=== PATIENT | female | born 1995 | race Caucasian/White ===

== ENCOUNTER 2018-11-13 12:37 | Emergency (ER) | payer MEDICAID, OTHER ==
[~2018-11-13] VITALS: Ht 162.6 cm; Wt 70.3 kg
[2018-11-13] MEDS ORDERED: NS IV 1000 ML 1,000 ML ONE (13:04)
[2018-11-13] MEDS ORDERED: LACTATED RINGERS 1,000 ML IV ONE (13:05)
--- NOTE | 2018-11-13 13:13 | ED GI ---
General Chief Complaint: Abdominal/GI Problems Stated Complaint: VOMITING; DIARRHEA Source of Information: Patient Exam Limitations: No Limitations History of Present Illness Date Seen by Provider: Nov 13, 2018 Time Seen by Provider: 12:56 Initial Comments The patient presents to ER by private conveyance with chief complaint of 2 days nausea vomiting diarrhea and now this morning of fever Tmax of 102. She has not taken any Tylenol today with her fever was resolving before she came in. She feels dry and dehydrated. She is 20 weeks and 4 days with a expected due date March 29, 2019. She is followed by Dr. Palacios. She has no significant medical problems only takes vitamins and denies smoking drinking or drugs. She denies burning dysuria. She has a sore throat and nasal congestion and a dry nonproductive cough. 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 She denies any history of abdominal surgeries, IBS or IBD. G1 Allergies and Home Medications Allergies Coded Allergies: No Known Drug Allergies (Unverified , 11/13/18) Patient Home Medication List Home Medication List Reviewed: Yes Review of Systems Review of Systems Constitutional: chills; No dizziness; fever, malaise; No weakness EENTM: No Blurred Vision, No Double Vision Respiratory: Cough; Denies Shortness of Air Cardiovascular: Denies Chest Pain, Denies Edema Gastrointestinal: Denies Abdomen Distended, Denies Abdominal Pain, Denies Blood Streaked Stools, Denies Constipated; Diarrhea, Nausea, Poor Fluid Intake, Vomiting Genitourinary: Denies Burning, Denies Discharge Musculoskeletal: No back pain, No joint pain Past Jzyreho-Kamavj-Qvudkl Hx Patient Social History Alcohol Use: Denies Use Recreational Drug Use: No Smoking Status: Never a Smoker Recent Foreign Travel: No Physical Exam Vital Signs Vital Signs - First Documented 11/13/18 13:17 Temp 98.8 Pulse 102 Resp 16 B/P (MAP) 110/87 (95) Pulse Ox 100 O2 Delivery Room Air Capillary Refill : Height/Weight/BMI Height: '" Weight: lbs. oz. kg; BMI Method: General Appearance: WD/WN, no apparent distress HEENT: PERRL/EOMI; No pharynx normal (oropharynx is dry) Neck: full range of motion, normal inspection Respiratory: lungs clear, normal breath sounds, no respiratory distress, no accessory muscle use Cardiovascular: normal peripheral pulses, regular rate, rhythm, no edema, no murmur Peripheral Pulses: 2+ Dorsalis Pedis (R), 2+ Left Dors-Pedis (L) Gastrointestinal: normal bowel sounds, non tender, soft, other (gravid) Extremities: normal range of motion, non-tender, normal inspection, normal capillary refill Neurologic/Psychiatric: alert, normal mood/affect, oriented x 3 Skin: normal color, warm/dry Progress/Results/Core Measures Results/Orders Lab Results Laboratory Tests Test 11/13/18 13:10 11/13/18 13:35 11/13/18 13:40 Range/Units White Blood Count 15.6 H 4.3-11.0 10^3/uL Red Blood Count 3.85 L 4.35-5.85 10^6/uL Hemoglobin 12.2 11.5-16.0 G/DL Hematocrit 36 35-52 % Mean Corpuscular Volume 94 80-99 FL Mean Corpuscular Hemoglobin 32 25-34 PG Mean Corpuscular Hemoglobin Concent 34 32-36 G/DL Red Cell Distribution Width 13.6 10.0-14.5 % Platelet Count 233 130-400 10^3/uL Mean Platelet Volume 9.7 7.4-10.4 FL Neutrophils (%) (Auto) 88 H 42-75 % Lymphocytes (%) (Auto) 6 L 12-44 % Monocytes (%) (Auto) 6 0-12 % Eosinophils (%) (Auto) 0 0-10 % Basophils (%) (Auto) 0 0-10 % Neutrophils # (Auto) 13.6 H 1.8-7.8 X 10^3 Lymphocytes # (Auto) 1.0 1.0-4.0 X 10^3 Monocytes # (Auto) 0.9 0.0-1.0 X 10^3 Eosinophils # (Auto) 0.0 0.0-0.3 10^3/uL Basophils # (Auto) 0.0 0.0-0.1 10^3/uL Neutrophils % (Manual) 87 % Lymphocytes % (Manual) 8 % Monocytes % (Manual) 2 % Eosinophils % (Manual) 0 % Basophils % (Manual) 0 % Band Neutrophils 3 % Blood Morphology Comment NORMAL Sodium Level 135 135-145 MMOL/L Potassium Level 3.6 3.6-5.0 MMOL/L Chloride Level 100 98-107 MMOL/L Carbon Dioxide Level 21 21-32 MMOL/L Anion Gap 14 5-14 MMOL/L Blood Urea Nitrogen 6 L 7-18 MG/DL Creatinine 0.50 L 0.60-1.30 MG/DL Estimat Glomerular Filtration Rate > 60 BUN/Creatinine Ratio 12 Glucose Level 81 70-105 MG/DL Calcium Level 8.8 8.5-10.1 MG/DL Corrected Calcium 9.1 8.5-10.1 MG/DL Total Bilirubin 0.9 0.1-1.0 MG/DL Aspartate Amino Transf (AST/SGOT) 23 5-34 U/L Alanine Aminotransferase (ALT/SGPT) 20 0-55 U/L Alkaline Phosphatase 70 40-136 U/L Total Protein 6.5 6.4-8.2 GM/DL Albumin 3.6 3.2-4.5 GM/DL Monoscreen NEGATIVE NEGATIVE Group A Streptococcus Screen NEGATIVE NEGATIVE Urine Color YELLOW Urine Clarity CLEAR Urine pH 7.0 5-9 Urine Specific [place] 1.015 L 1.016-1.022 Urine Protein NEGATIVE NEGATIVE Urine Glucose (UA) NEGATIVE NEGATIVE Urine Ketones 1+ H NEGATIVE Urine Nitrite NEGATIVE NEGATIVE Urine Bilirubin NEGATIVE NEGATIVE Urine Urobilinogen 0.2 NORMAL MG/DL Urine Leukocyte Esterase NEGATIVE NEGATIVE Urine RBC (Auto) NEGATIVE NEGATIVE Urine RBC NONE /HPF Urine WBC NONE /HPF Urine Squamous Epithelial Cells 10-25 H /HPF Urine Crystals NONE /LPF Urine Bacteria NONE /HPF Urine Casts NONE /LPF Urine Mucus NEGATIVE /LPF Urine Culture Indicated NO Micro Results Microbiology 11/13/18 Influenza Types A,B Antigen (ELENO) - Final, Complete My Orders Orders - BAO ADAMS Cbc With Automated Diff (11/13/18 13:05) Comprehensive Metabolic Panel (11/13/18 13:05) Urinalysis (11/13/18 13:05) Influenza A And B Antigens (11/13/18 13:05) Ns Iv 1000 Ml (Sodium Chloride 0.9%) (11/13/18 13:04) Rapid Strep A Screen (11/13/18 13:05) Monotest (11/13/18 13:05) Saline Lock/Iv-Start (11/13/18 13:05) Lactated Ringers (Lr 1000 Ml Iv Solution (11/13/18 13:05) Acetaminophen Tablet (Tylenol Tablet) (11/13/18 13:15) Ondansetron Injection (Zofran Injectio (11/13/18 13:30) Ondansetron Injection (Zofran Injectio (11/13/18 13:23) Manual Differential (11/13/18 13:10) Medications Given in ED Current Medications Medications Dose Ordered Sig/Peri Route Start Time Stop Time Status Last Admin Dose Admin Acetaminophen 1,000 mg ONCE ONCE PO 11/13/18 13:15 11/13/18 13:16 DC 11/13/18 13:46 1,000 MG Lactated Ringer's 1,000 ml @ 0 mls/hr Q0M ONCE IV 11/13/18 13:05 11/13/18 13:08 DC 11/13/18 13:46 1,000 MLS/HR Ondansetron HCl 4 mg ONCE ONCE IVP 11/13/18 13:30 11/13/18 13:31 DC 11/13/18 13:46 4 MG Vital Signs/I&O 11/13/18 13:17 Temp 98.8 Pulse 102 Resp 16 B/P (MAP) 110/87 (95) Pulse Ox 100 O2 Delivery Room Air Progress Progress Note : Time: 13:13 Progress Note Plan to give her a liter of balance solution and check some basic labs looking for mono, strep, influenza as well as anemia, elevated white count. We'll also since she is 20 weeks' just check liver enzymes and electrolytes. She would like some Tylenol for her mild frontal headache. She is declining anything for nausea right now. heart tones 144 Departure Impression Primary Impression: Gastroenteritis and colitis, viral Additional Impressions: Viral upper respiratory tract infection with cough Qualified Codes: Z3A.20 - 20 weeks gestation of Disposition: 01 HOME, SELF-CARE Condition: Improved Departure-Patient Inst. Decision time for Depature: 15:08 Referrals: CURRY PALACIOS MD (PCP/Family) Primary Care Physician Patient Instructions: Viral Gastroenteritis, Adult (DC) Add. Discharge Instructions: Make sure you're drinking plenty of fluids especially sports drinks such as propel, Gatorade, Powerade etc. If you're having diarrhea then you should stick to a liquid diet or a high starch low spicy greasy diet such as a BRAT diet: Bananas, rice, applesauce and toast. If you're having nausea you may take one tablet of Zofran every 6 hours as necessary. If your diarrhea persists for more than 2 days or if you're unable to keep up with your fluid intake then you may take one tablet of Imodium every 4 hours as needed to stop watery stools. Follow-up with primary care as necessary. All discharge instructions reviewed with patient and/or family. Voiced understanding. Scripts Ondansetron (Ondansetron Odt) 4 Mg Tab.rapdis 4 MG PO Q6H PRN for NAUSEA/VOMITING, #8 TAB 0 Refills Prov: BAO ADAMS 11/13/18 Work/School Note: Work Release Form Date Seen in the Emergency Department: Nov 13, 2018 Return to Work: Nov 14, 2018 Restrictions: No Restrictions BAO ADAMS Nov 13, 2018 13:12
[2018-11-13] MEDS ORDERED: ACETAMINOPHEN 500 MG TAB (TYLENOL) PO ONE (13:15)
[2018-11-13] MEDS ORDERED: ONDANSETRON 4 MG/2 ML (SDV) Z0FRAN ONE (13:23)
[2018-11-13 13:27] LABS: HEMATOCRIT 36 % (35-52); HEMOGLOBIN 12.2 G/DL (11.5-16.0); MEAN CORPUSCULAR HEMOGLOBIN 32 PG (25-34); WHITE BLOOD COUNT 15.6 10^3/uL (4.3-11.0)
[2018-11-13 13:28] LABS: BASOPHILS % (AUTO) 0 % (0-10); EOSINOPHILS % (AUTO) 0 % (0-10); LYMPHOCYTES % (AUTO) 6 % (12-44); MEAN CORPUSCULAR HGB CONC 34 G/DL (32-36); MEAN CORPUSCULAR VOLUME 94 FL (80-99); MEAN PLATELET VOLUME 9.7 FL (7.4-10.4); MONOCYTES # (AUTO) 0.9 X 10^3 (0.0-1.0); MONOCYTES % (AUTO) 6 % (0-12); NEUTROPHILS # (AUTO) 13.6 X 10^3 (1.8-7.8); NEUTROPHILS % (AUTO) 88 % (42-75); PLATELET COUNT 233 10^3/uL (130-400); RED CELL DISTRIBUTION WIDTH 13.6 % (10.0-14.5)
[2018-11-13] MEDS ORDERED: ONDANSETRON 4 MG/2 ML (SDV) Z0FRAN IVP ONE (13:30)
[2018-11-13 13:44] LABS: ALANINE AMINOTRANSFERASE 20 U/L (0-55); ALBUMIN 3.6 GM/DL (3.2-4.5); ALKALINE PHOSPHATASE 70 U/L (40-136); BILIRUBIN,TOTAL 0.9 MG/DL (0.1-1.0); BUN/CREATININE RATIO 12; CALCIUM 8.8 MG/DL (8.5-10.1); CARBON DIOXIDE 21 MMOL/L (21-32); CHLORIDE 100 MMOL/L (98-107); GFR ESTIMATED > 60; GLUCOSE 81 MG/DL (70-105); POTASSIUM 3.6 MMOL/L (3.6-5.0); SODIUM 135 MMOL/L (135-145); TOTAL PROTEIN 6.5 GM/DL (6.4-8.2)
[2018-11-13 13:51] LABS: BAND NEUTROPHILS 3 %; BASOPHILS % (MANUAL) 0 %; EOSINOPHILS % (MANUAL) 0 %; LYMPHOCYTES % (MANUAL) 8 %; MONOCYTES % (MANUAL) 2 %; NEUTROPHILS % (MANUAL) 87 %; RBC MORPH NORMAL
[2018-11-13 14:16] LABS: CLARITY,URINE CLEAR; COLOR,URINE YELLOW; PROTEIN,URINE NEGATIVE (NEGATIVE)
[2018-11-13 14:17] LABS: BILIRUBIN,URINE NEGATIVE (NEGATIVE); GLUCOSE, URINE (UA) NEGATIVE (NEGATIVE); KETONES,URINE 1+ (NEGATIVE); LEUKOCYTE ESTERASE ,URINE NEGATIVE (NEGATIVE); NITRITE,URINE NEGATIVE (NEGATIVE); UROBILINOGEN,URINE 0.2 MG/DL (NORMAL)
[2018-11-13] MEDS ORDERED: ONDA4TAB11 PO (15:14)
[2018-11-13 15:18] VITALS: BP 125/62
== END 2018-11-13 15:18 | disposition home or self-care (01) ==
LOC: ER FS 12:40
DX: O99.612 Diseases of the digestive system complicating pregnancy, second trimester (principal); A08.4 Viral intestinal infection, unspecified; O99.512 Diseases of the respiratory system complicating pregnancy, second trimester; J06.9 Acute upper respiratory infection, unspecified; Z3A.20 20 weeks gestation of pregnancy
CPT/HCPCS: 36415; 80053; 81000; 85007; 85027; 86308; 87430; 87804; 96361; 96374

== ENCOUNTER 2018-12-18 13:13 | Outpatient (CLI) | payer MEDICAID ==
[~2018-12-18] VITALS: Ht 162.6 cm; Wt 71.7 kg
--- NOTE | 2018-12-18 13:10 | NUR ---
NIRAV CHAPPELL presented to unit via AMBULATORY from HOME, accompanied by S/O with c/o LOWER LEFT SIDE ABD PAIN. NIRAV CHAPPELL weighed, gowned, voided, and to bed. EFHM and TOCO applied, VS taken. NIRAV CHAPPELL oriented to bed controls, call light, TV, heat, and A/C controls.
[~2018-12-18 13:13] MED LIST: ONDA4TAB11 PO
[2018-12-18 13:17] VITALS: BP 149/74
[2018-12-18 13:28] VITALS: BP 131/61
[2018-12-18 13:38] VITALS: BP 131/61
[2018-12-18 13:52] VITALS: BP 131/63
[2018-12-18] MEDS ORDERED: PREN1TAB79 PO (13:55)
--- NOTE | 2018-12-18 14:00 | NUR ---
PT FINALLY ABLE TO VOID.
[2018-12-18 14:16] LABS: BILIRUBIN,URINE NEGATIVE (NEGATIVE); CLARITY,URINE SLIGHTLY CLOUDY; COLOR,URINE YELLOW; GLUCOSE, URINE (UA) NEGATIVE (NEGATIVE); KETONES,URINE 1+ (NEGATIVE); LEUKOCYTE ESTERASE ,URINE NEGATIVE (NEGATIVE); NITRITE,URINE NEGATIVE (NEGATIVE); PH,URINE 7 (5-9); PROTEIN,URINE NEGATIVE (NEGATIVE); UROBILINOGEN,URINE NORMAL (NORMAL)
[2018-12-18 14:54] LABS: BACTERIA,URINE NEGATIVE /HPF; SQUAMOUS EPITHELIAL CELL,UR 0-2 /HPF
[2018-12-18 14:55] LABS: AMORPHOUS SEDIMENT,UR MOD AMOR PHOSPHATE /LPF
--- NOTE | 2018-12-18 15:00 | NUR ---
DR. BOWMAN NOTIFIED OF PT'S ARRIVAL, COMPLAINT, NO CTXS, URINE RESULTS. ORDERS RECEIVED.
[2018-12-18] MEDS ORDERED: LACTATED RINGERS 1,000 ML IV SCH (15:15)
--- NOTE | 2018-12-18 15:55 | NUR ---
NO DIARRHEA OR EMESIS SINCE ARRIVAL. PT HAS SLEPT OFF AND ON. AWAKENED FOR INSTRUCTIONS. STATES FEELING BETTER.
--- NOTE | 2018-12-18 16:00 | NUR ---
DISCHARGE INSTRUCTIONS REVIEWED WITH COPY TO PT. STATES UNDERSTANDING OF ALL INSTRUCTIONS AND NEED TO F/U SCHEDULED AND NEEDED.
[2018-12-18 16:10] VITALS: BP 131/63
--- NOTE | 2018-12-18 16:10 | NUR ---
DISMISSED AMB FROM [facility] IN STABLE CONDITION ACC BY NoelOSacha
--- NOTE | 2018-12-19 16:48 | Physician Query-Final Dx ---
DENNIS HERCULES 12/19/18 1648: Clinic Account Progress/Dx Physician Query: Please give diagnosis Date of Service Dec 18, 2018 at 13:13 CURRY PALACIOS MD 12/26/18 1506: Clinic Account Progress/Dx DIAGNOSIS: Diagnosis LLQ pain; round ligament pain. DENNIS HERCULES Dec 19, 2018 16:48 CURRY PALACIOS MD December 26, 2018 15:06
== END 2018-12-18 16:10 | disposition home or self-care (01) ==
LOC: LDRP 13:13 → WSo 13:13
PROVIDERS: ATTEND Family Medicine
DX: O99.89 Other specified diseases and conditions complicating pregnancy, childbirth and the puerperium (principal); R10.31 Right lower quadrant pain
CPT/HCPCS: 81000; 96360; 99213

== ENCOUNTER 2019-01-31 22:05 | Emergency (ER) | payer MEDICAID ==
[~2019-01-31] VITALS: Ht 162.6 cm; Wt 74.8 kg
[~2019-01-31 22:05] MED LIST changes: +PREN1TAB79 PO
--- OUTSIDE RECORDS SUMMARY | 2019-01-31 22:11 | XMS REPORT | Continuity of Care Document ---
Author Organization Unknown Address Unknown Allergies Active Description Code Type Severity Reaction Onset Reported/Identified Relationship to Patient Clinical Status Yes No Known Drug Allergies [id number] Drug Allergy Unknown N/A 11/13/2018 Medications There is no data. Problems Date Dx Coded Attending Type Code Diagnosis Diagnosed By 11/13/2018 BAO ADAMS MD Ot A08.4 VIRAL INTESTINAL INFECTION, UNSPECIFIED 11/13/2018 BAO ADAMS MD Ot J06.9 ACUTE UPPER RESPIRATORY INFECTION, UNSPE 11/13/2018 BAO ADAMS MD Ot O21.9 VOMITING OF , UNSPECIFIED 11/13/2018 BAO ADAMS MD Ot O99.512 DISEASES OF THE RESP SYS COMP , 11/13/2018 BAO ADAMS MD Ot O99.612 DISEASES OF THE DGSTV SYS COMP 11/13/2018 BAO ADAMS MD Ot Z3A.20 20 WEEKS GESTATION OF 11/16/2018 BAO ADAMS MD Ot A08.4 VIRAL INTESTINAL INFECTION, UNSPECIFIED 11/16/2018 BAO ADAMS MD Ot J06.9 ACUTE UPPER RESPIRATORY INFECTION, UNSPE 11/16/2018 BAO ADAMS MD Ot O21.9 VOMITING OF , UNSPECIFIED 11/16/2018 BAO ADAMS MD Ot O99.512 DISEASES OF THE RESP SYS COMP , 11/16/2018 BAO ADAMS MD Ot O99.612 DISEASES OF THE DGSTV SYS COMP 11/16/2018 BAO ADAMS MD Ot Z3A.20 20 WEEKS GESTATION OF 12/18/2018 ANITA BOWMAN DO Ot O99.89 OTH DISEASES AND CONDITIONS COMPL PREG/C 12/18/2018 ANITA BOWMAN DO Ot R10.31 RIGHT LOWER QUADRANT PAIN 01/02/2019 ANITA BOWMAN DO Ot O99.89 OTH DISEASES AND CONDITIONS COMPL PREG/C 01/02/2019 ANITA BOWMAN DO Ot R10.31 RIGHT LOWER QUADRANT PAIN Procedures There is no data. Results Test Result Range Complete blood count (CBC) with automated white blood cell (WBC) differential - 11/13/18 13:10 Blood leukocytes automated count (number/volume) 15.6 10*3/uL 4.3-11.0 Blood erythrocytes automated count (number/volume) 3.85 10*6/uL 4.35-5.85 Venous blood hemoglobin measurement (mass/volume) 12.2 g/dL 11.5-16.0 Blood hematocrit (volume fraction) 36 % 35-52 Automated erythrocyte mean corpuscular volume 94 [foz_us] 80-99 Automated erythrocyte mean corpuscular hemoglobin (mass per erythrocyte) 32 pg 25-34 Automated erythrocyte mean corpuscular hemoglobin concentration measurement (mass/volume) 34 g/dL 32-36 Automated erythrocyte distribution width ratio 13.6 % 10.0- 14.5 Automated blood platelet count (count/volume) 233 10*3/uL 130-400 Automated blood platelet mean volume measurement 9.7 [foz_us] 7.4-10.4 Automated blood neutrophils/100 leukocytes 88 % 42-75 Automated blood lymphocytes/100 leukocytes 6 % 12-44 Blood monocytes/100 leukocytes 6 % 0-12 Automated blood eosinophils/100 leukocytes 0 % 0-10 Automated blood basophils/100 leukocytes 0 % 0-10 Blood neutrophils automated count (number/volume) 13.6 10*3 1.8-7.8 Blood lymphocytes automated count (number/volume) 1.0 10*3 1.0-4.0 Blood monocytes automated count (number/volume) 0.9 10*3 0.0- 1.0 Automated eosinophil count 0.0 10*3/uL 0.0-0.3 Automated blood basophil count (count/volume) 0.0 10*3/uL 0.0-0.1 Serum heterophile antibody titer - 11/13/18 13:10 Serum heterophile antibody titer NEGATIVE NEGATIVE Blood manual differential performed detection - 11/13/18 13:10 Blood monocytes/100 leukocytes 2 % NRG Manual blood segmented neutrophils/100 leukocytes 87 % NRG Blood band neutrophils/100 leukocytes 3 % NRG Manual blood lymphocytes/100 leukocytes 8 % NRG Manual eosinophils/100 leukocytes in nose 0 % NRG Manual blood basophils/100 leukocytes 0 % NRG Blood erythrocyte morphology finding identification NORMAL NRG Streptococcus pyogenes antigen detection - 11/13/18 13:35 Streptococcus pyogenes antigen detection NEGATIVE NEGATIVE Influenza virus A and B antigen detection - 11/13/18 13:35 FLU RESULT NEGATIVE FOR INFLUENZA A AND B ANTIGENS BY IA NRG Bacterial throat culture - 11/13/18 13:35 Bacterial throat culture NBS NRG Complete urinalysis with reflex to culture - 11/13/18 13:40 Urine color determination YELLOW NRG Urine clarity determination CLEAR NRG Urine pH measurement by test strip 7.0 5-9 Specific gravity of urine by test strip 1.015 1.016-1.022 Urine protein assay by test strip, semi-quantitative NEGATIVE NEGATIVE Urine glucose detection by automated test strip NEGATIVE NEGATIVE Erythrocytes detection in urine sediment by light microscopy NEGATIVE NEGATIVE Urine ketones detection by automated test strip 1+ NEGATIVE Urine nitrite detection by test strip NEGATIVE NEGATIVE Urine total bilirubin detection by test strip NEGATIVE NEGATIVE Urine urobilinogen measurement by automated test strip (mass/volume) 0.2 mg/dL NORMAL Urine leukocyte esterase detection by dipstick NEGATIVE NEGATIVE Automated urine sediment erythrocyte count by microscopy (number/high power field) NONE NRG Automated urine sediment leukocyte count by microscopy (number/high power field) NONE NRG Bacteria detection in urine sediment by light microscopy NONE NRG Squamous epithelial cells detection in urine sediment by light microscopy 10-25 NRG Crystals detection in urine sediment by light microscopy NONE NRG Casts detection in urine sediment by light microscopy NONE NRG Mucus detection in urine sediment by light microscopy NEGATIVE NRG Complete urinalysis with reflex to culture NO NRG Complete urinalysis with reflex to culture - 12/18/18 14:00 Urine color determination YELLOW NRG Urine clarity determination SLIGHTLY CLOUDY NRG Urine pH measurement by test strip 7 5-9 Specific gravity of urine by test strip 1.010 1.016-1.022 Urine protein assay by test strip, semi-quantitative NEGATIVE NEGATIVE Urine glucose detection by automated test strip NEGATIVE NEGATIVE Erythrocytes detection in urine sediment by light microscopy NEGATIVE NEGATIVE Urine ketones detection by automated test strip 1+ NEGATIVE Urine nitrite detection by test strip NEGATIVE NEGATIVE Urine total bilirubin detection by test strip NEGATIVE NEGATIVE Urine urobilinogen measurement by automated test strip (mass/volume) NORMAL NORMAL Urine leukocyte esterase detection by dipstick NEGATIVE NEGATIVE Automated urine sediment erythrocyte count by microscopy (number/high power field) NONE NRG Automated urine sediment leukocyte count by microscopy (number/high power field) NONE NRG Bacteria detection in urine sediment by light microscopy NEGATIVE NRG Squamous epithelial cells detection in urine sediment by light microscopy 0-2 NRG Crystals detection in urine sediment by light microscopy PRESENT NRG Casts detection in urine sediment by light microscopy NONE NRG Mucus detection in urine sediment by light microscopy NEGATIVE NRG Complete urinalysis with reflex to culture NO NRG Amorphous sediment detection in urine sediment by light microscopy MOD ALAN PHOSPHATE NRG CBC - 12/21/18 10:14 WHITE BLOOD CELL COUNT 10.2 Thousand/uL 3.8-10.8 RED BLOOD CELL COUNT 3.82 Million/uL 3.80-5.10 HEMOGLOBIN 12.0 g/dL 11.7-15.5 HEMATOCRIT 35.1 % 35.0-45.0 MCV 91.9 fL 80.0-100.0 MCH 31.4 pg 27.0-33.0 MCHC 34.2 g/dL 32.0-36.0 RDW 12.7 % 11.0-15.0 PLATELET COUNT 243 Thousand/uL 140-400 MPV 10.4 fL 7.5-12.5 ABSOLUTE NEUTROPHILS 8466 cells/uL 3912-9964 ABSOLUTE LYMPHOCYTES 1102 cells/uL 850-3900 ABSOLUTE MONOCYTES 571 cells/uL 200-950 ABSOLUTE EOSINOPHILS 31 cells/uL 15-500 ABSOLUTE BASOPHILS 31 cells/uL 0-200 NEUTROPHILS 83 % NRG LYMPHOCYTES 10.8 % NRG MONOCYTES 5.6 % NRG EOSINOPHILS 0.3 % NRG BASOPHILS 0.3 % NRG Encounters ACCT No. Visit Date/Time Discharge Status Pt. Type Provider Facility Loc./Unit Complaint [id number] 01/22/2019 09:30:00 01/22/2019 23:59:59 CLS [facility] [id number] 12/21/2018 08:45:00 Document Registration [id number] 12/18/2018 13:13:00 12/18/2018 16:10:00 DIS Outpatient ANITA BOWMAN DO [facility]So LOWER LEFT SIDE ABD PAIN [id number] 11/13/2018 12:40:00 11/13/2018 15:18:00 DIS Emergency BRYAN CABRERA, BAO Wilks [facility] ER FS VOMITING; DIARRHEA
[2019-01-31] MEDS ORDERED: ACETAMINOPHEN 325 MG TABLET PO STA (22:31)
--- NOTE | 2019-01-31 22:50 | NUR ---
This RN called L&D to advise them that this patient was coming by private vehicle. The ER doctor had spoken with Dr. Plasencia. Dr. Plasencia would like the patient to go to [facility] to be observed.
--- NOTE | 2019-01-31 22:52 | ED Abdominal Pain ---
General Chief Complaint: [employer]AGE [employer] Stated Complaint: POSSIBLE CONTRACTIONS Nursing Triage Note: Patient is 32 weeks and believes she is having contractions. Patient states that she is supposed to see Dr. Palacios in the AM for a routine appointment but did start having remington you since that appointment. Patient describes them as in her upper abdomen and back. Sepsis Screen: No Definite Risk History of Present Illness Date Seen by Provider: Jan 31, 2019 Time Seen by Provider: 22:25 Initial Comments The patient is an otherwise healthy 23-year-old female, at 21 weeks 6 days by ultrasound dating. She presents with concern for a sensation of rhythmic low abdominal cramping occurring about once every 4-5 minutes. She denies any fevers, vomiting, cough, shortness of breath or chest pain, flank pain, dysuria or hematuria, unusual vaginal discharge or bleeding, changes in bowel habits. Patient does note scant fluid in her underwear when she went to the toilet within the last hour or so but thinks it was probably just urine. Certainly no ezequiel loss of fluids prior to arrival. Patient is resting comfortably in no acute distress and vital signs are appropriate upon initial evaluation in the emergency department. Patient reports readings of elevated blood pressures at home but patient does have a blood pressure of 124/59 and vital signs are otherwise entirely reassuring upon initial evaluation in the emergency department. Allergies and Home Medications Allergies Coded Allergies: No Known Drug Allergies (Unverified , 11/13/18) Home Medications Vit W-Ca,Fe,FA(<1 mg) 1 Each Tablet, 1 EACH PO DAILY, (Reported) Patient Home Medication List Home Medication List Reviewed: Yes Review of Systems Review of Systems Constitutional: see HPI All Other Systems Reviewed Negative Unless Noted: Yes Past Xeigcom-Ojggzk-Guajvl Hx Past Med/Social Hx: Reviewed Nursing Past Med/Soc Hx Patient Social History Alcohol Use: Denies Use Recreational Drug Use: No Smoking Status: Never a Smoker 2nd Hand Smoke Exposure: No Recent Foreign Travel: No Contact w/Someone Who Travel: No Recent Infectious Disease Expo: No Recent Hopitalizations: No Physical Abuse: No Sexual Abuse: No Mistreated: No Fear: No Seasonal Allergies Seasonal Allergies: No Past Medical History Surgeries: Yes Tonsillectomy Respiratory: No Cardiac: No Neurological: No Genitourinary: No Gastrointestinal: No Musculoskeletal: No Endocrine: No HEENT: No Cancer: No Psychosocial: No Integumentary: No Blood Disorders: No Family Medical History Reviewed Nursing Family Hx Physical Exam Vital Signs Vital Signs - First Documented 01/31/19 22:12 Temp 98.7 Pulse 88 Resp 16 B/P (MAP) 145/77 (99) Pulse Ox 99 O2 Delivery Room Air Capillary Refill : Less Than 3 Seconds Height/Weight/BMI Height: 5'4.00" Weight: 165lbs. 0oz. 74.521929uw; 27.1 BMI Method:Stated General Appearance: no apparent distress Exam Comments This is a young female appearing nontoxic and in no acute distress. Head is normocephalic and atraumatic. Neck is supple and nontender. Oropharynx is moist. Lungs are clear to auscultation at all stations. There is a normal S1 and S2 without rubs or gallops and capillary refill is appropriate, less 2 seconds globally. Abdomen is gravid but nontender, consistent with stated dates. Skin is warm and dry without cyanosis, clubbing or edema. Psychiatrically, the patient demonstrates appropriate mood and affect and is alert. Progress/Results/Core Measures Results/Orders My Orders Orders - JENNIFER CHAMBERLAIN MD Acetaminophen Tablet/Caplet (Tylenol T (01/31/19 22:31) Vital Signs/I&O 01/31/19 22:12 Temp 98.7 Pulse 88 Resp 16 B/P (MAP) 145/77 (99) Pulse Ox 99 O2 Delivery Room Air Blood Pressure Mean: 99 Progress Progress Note : Time: 22:50 Progress Note Clinical examination reassuring. Bedside obstetric ultrasound completed and appropriate heart rate and good movement are visualized. Case is discussed with Dr. Palacios of [employer] who agrees with me that the patient requires further evaluation in a labor and delivery triage setting and is stable for POV transfer to an appropriate close-by facility. We will therefore transfer to [facility] via private vehicle for third trimester monitoring and further care as indicated. Patient and her significant other understand and agree with the plan of care. Dr. Palacios graciously accepts for POV transfer to [facility] for L&D evaluation and monitoring. Departure Impression Primary Impression: Uterine contractions at greater than 20 weeks of gestation Disposition: 02 XFER SHT-TRM HOSP Condition: Stable Departure-Patient Inst. Referrals: CURRY PALACIOS MD (PCP/Family) Primary Care Physician Add. Discharge Instructions: Please drive to [facility] immediately as discussed for further monitoring of her . JENNIFER CHAMBERLAIN MD Jan 31, 2019 22:52
[2019-01-31 22:57] VITALS: BP 124/59
== END 2019-01-31 22:57 | disposition short-term general hospital (02) ==
LOC: EDUNIT# 22:05 → ER FS 22:08
DX: O62.9 Abnormality of forces of labor, unspecified (principal); Z3A.21 21 weeks gestation of pregnancy; Z90.89 Acquired absence of other organs
CPT/HCPCS: 99284

== ENCOUNTER 2019-02-01 00:18 | Outpatient (CLI) | payer MEDICAID ==
[~2019-02-01] VITALS: Ht 162.6 cm; Wt 73.7 kg
--- NOTE | 2019-02-01 00:20 | NUR ---
NIRAV CHAPPELL presented to unit via WC from ED, accompanied by staff , with c/o CONTRACTIONS & FLUID LEAKAGE. NIRAV CHAPPELL weighed, gowned, voided, and to bed. EFHM and TOCO applied, VS taken. NIRAV CHAPPELL oriented to bed controls, call light, TV, heat, and A/C controls.
[2019-02-01 00:30] VITALS: BP 129/77
[2019-02-01 01:14] LABS: BILIRUBIN,URINE NEGATIVE (NEGATIVE); CLARITY,URINE CLEAR; COLOR,URINE YELLOW; GLUCOSE, URINE (UA) NEGATIVE (NEGATIVE); KETONES,URINE NEGATIVE (NEGATIVE); LEUKOCYTE ESTERASE ,URINE 1+ (NEGATIVE); NITRITE,URINE NEGATIVE (NEGATIVE); PH,URINE 6 (5-9); PROTEIN,URINE NEGATIVE (NEGATIVE); UROBILINOGEN,URINE NORMAL (NORMAL)
[2019-02-01 01:28] LABS: BACTERIA,URINE FEW /HPF
--- NOTE | 2019-02-01 01:37 | NUR ---
Dr. Plasencia notified of pt arrival to unit and evaluation. Orders received to discharge patient home and encourage her to go to her scheduled visit in the morning.
--- NOTE | 2019-02-01 01:57 | NUR ---
Written discharge instructions reviewed with patient. Discharge instructions signed and copy given.
--- NOTE | 2019-02-01 01:58 | NUR ---
patient discharged home, accompanied by mother. Patient ambulated off unit without difficulty. All personal belongings in patient possession. Condition stable. No signs or symptoms of distress.
== END 2019-02-01 01:58 | disposition home or self-care (01) ==
LOC: WSo 00:18 → LDRP 00:19 → WSo 01:58
PROVIDERS: ATTEND Family Medicine
DX: O62.2 Other uterine inertia (principal); Z3A.32 32 weeks gestation of pregnancy
CPT/HCPCS: 81000; 87088; 99213

== ENCOUNTER → 2019-02-01 | Outpatient (CLI) | payer MEDICAID ==
[2019-02-01 12:10] LABS: HEMATOCRIT 36 % (35-52); MEAN CORPUSCULAR HEMOGLOBIN 31 PG (25-34); MEAN CORPUSCULAR HGB CONC 34 G/DL (32-36); MEAN CORPUSCULAR VOLUME 93 FL (80-99); MEAN PLATELET VOLUME 9.6 FL (7.4-10.4); PLATELET COUNT 263 10^3/uL (130-400); RED CELL DISTRIBUTION WIDTH 13.3 % (10.0-14.5); WHITE BLOOD COUNT 11.5 10^3/uL (4.3-11.0)
[2019-02-01 12:11] LABS: BAND NEUTROPHILS 2 %; BASOPHILS % (AUTO) 0 % (0-10); BASOPHILS % (MANUAL) 0 %; EOSINOPHILS % (AUTO) 0 % (0-10); EOSINOPHILS % (MANUAL) 1 %; LYMPHOCYTES # (AUTO) 1.9 X 10^3 (1.0-4.0); LYMPHOCYTES % (AUTO) 16 % (12-44); LYMPHOCYTES % (MANUAL) 17 %; MONOCYTES # (AUTO) 0.8 X 10^3 (0.0-1.0); MONOCYTES % (AUTO) 7 % (0-12); MONOCYTES % (MANUAL) 6 %; NEUTROPHILS # (AUTO) 8.7 X 10^3 (1.8-7.8); NEUTROPHILS % (AUTO) 76 % (42-75); NEUTROPHILS % (MANUAL) 74 %
[2019-02-01 12:18] LABS: ALANINE AMINOTRANSFERASE 13 U/L (0-55); ALBUMIN 3.8 GM/DL (3.2-4.5); ALKALINE PHOSPHATASE 128 U/L (40-136); BILIRUBIN,TOTAL 0.9 MG/DL (0.1-1.0); BUN/CREATININE RATIO 11; CARBON DIOXIDE 30 MMOL/L (21-32); CHLORIDE 98 MMOL/L (98-107); CREATININE SERUM 0.57 MG/DL (0.60-1.30); GFR ESTIMATED > 60; GLUCOSE 73 MG/DL (70-105); POTASSIUM 4.2 MMOL/L (3.6-5.0); SODIUM 134 MMOL/L (135-145); TOTAL PROTEIN 6.8 GM/DL (6.4-8.2)
== END ==
LOC: RAD FS 11:29
PROVIDERS: ATTEND Family Medicine
DX: O47.00 False labor before 37 completed weeks of gestation, unspecified trimester (principal); Z3A.00 Weeks of gestation of pregnancy not specified
CPT/HCPCS: 36415; 80053; 85007; 85027

== ENCOUNTER 2019-03-17 00:30 | Emergency (ER) | payer MEDICAID ==
[~2019-03-17] VITALS: Ht 162.6 cm; Wt 78.5 kg
--- OUTSIDE RECORDS SUMMARY | 2019-03-17 00:48 | XMS REPORT | Continuity of Care Document ---
Author Organization Unknown Address Unknown Allergies Active Description Code Type Severity Reaction Onset Reported/Identified Relationship to Patient Clinical Status Yes No Known Drug Allergies [id number] Drug Allergy Unknown N/A 11/13/2018 Medications There [...] R10.31 RIGHT LOWER QUADRANT PAIN 01/02/2019 ANITA BOWAMN DO Ot O99.89 OTH DISEASES AND CONDITIONS COMPL PREG/C 01/02/2019 ANITA BOWMAN DO Ot R10.31 RIGHT LOWER QUADRANT PAIN 01/31/2019 JENNIFER CHAMBERLAIN MD Ot O26.892 OT RELATED CONDITIONS, SECOND 01/31/2019 JENNIFER CHAMBERLAIN MD Ot O62.9 ABNORMALITY OF FORCES OF LABOR, UNSPECIF 01/31/2019 JENNIFER CHABMERLAIN MD Ot Z3A.21 21 WEEKS GESTATION OF 01/31/2019 JENNIFER CHAMBERLAIN MD Ot Z90.89 ACQUIRED ABSENCE OF OTHER ORGANS 02/01/2019 CURRY PALACIOS MD Ot 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 02/01/2019 CURRY PALACIOS MD Ot Z3A.32 32 WEEKS GESTATION OF 02/04/2019 CURRY PALACIOS MD Ot O47.00 FALSE LABOR BEFORE 37 COMPLETED WEEKS OF 02/04/2019 CURRY PALACIOS MD Ot Z3A.00 WEEKS OF GESTATION OF NOT SPEC 02/05/2019 JENNIFER CHAMBERLAIN MD, Ot O26.892 OT RELATED CONDITIONS, SECOND 02/05/2019 JENNIFER CHAMBERLAIN MD Ot O62.9 ABNORMALITY OF FORCES OF LABOR, UNSPECIF 02/05/2019 JENNIFER CHAMBERLAIN MD Ot Z3A.21 21 WEEKS GESTATION OF 02/05/2019 JENNIFER CHAMBERLAIN MD Ot Z90.89 ACQUIRED ABSENCE OF OTHER ORGANS 02/05/2019 CURRY PALACIOS MD Ot 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 02/05/2019 CURRY PALACIOS MD Ot Z3A.32 32 WEEKS GESTATION OF 02/07/2019 JENNIFER CHAMBERLAIN MD Ot O26.892 OT RELATED CONDITIONS, SECOND 02/07/2019 JENNIFER CHAMBERLAIN MD Ot O62.9 ABNORMALITY OF FORCES OF LABOR, UNSPECIF 02/07/2019 JENNIFER CHAMBERLAIN MD Ot Z3A.21 21 WEEKS GESTATION OF 02/07/2019 JENNIFER CHAMBERLAIN MD Ot Z90.89 ACQUIRED ABSENCE OF OTHER ORGANS 02/07/2019 CURRY PALACIOS MD Ot O47.00 FALSE LABOR BEFORE 37 COMPLETED WEEKS OF 02/07/2019 CURRY PALACIOS MD Ot Z3A.00 WEEKS OF GESTATION OF NOT SPEC 02/18/2019 CURRY PALACIOS MD Ot O47.00 FALSE LABOR BEFORE 37 COMPLETED WEEKS OF 02/18/2019 PHILIP CABRERA, CURRY Guillen Ot Z3A.00 WEEKS OF GESTATION OF NOT SPEC Procedures There is no data. Results Test [...] 10.4 fL 7.5-12.5 ABSOLUTE NEUTROPHILS 8466 cells/uL 0019-9188 ABSOLUTE LYMPHOCYTES 1102 cells/uL 850-3900 ABSOLUTE MONOCYTES 571 cells/uL 200-950 ABSOLUTE EOSINOPHILS 31 cells/uL 15-500 ABSOLUTE BASOPHILS 31 cells/uL 0-200 NEUTROPHILS 83 % NRG LYMPHOCYTES 10.8 % NRG MONOCYTES 5.6 % NRG EOSINOPHILS 0.3 % NRG BASOPHILS 0.3 % NRG Complete urinalysis with reflex to culture - 02/01/19 01:05 Urine color determination YELLOW NRG Urine clarity determination CLEAR NRG Urine pH measurement by test strip 6 5-9 Specific gravity of urine by test strip 1.015 1.016-1.022 Urine protein assay by test strip, semi-quantitative NEGATIVE NEGATIVE Urine glucose detection by automated test strip NEGATIVE NEGATIVE Erythrocytes detection in urine sediment by light microscopy NEGATIVE NEGATIVE Urine ketones detection by automated test strip NEGATIVE NEGATIVE Urine nitrite detection by test strip NEGATIVE NEGATIVE Urine total bilirubin detection by test strip NEGATIVE NEGATIVE Urine urobilinogen measurement by automated test strip (mass/volume) NORMAL NORMAL Urine leukocyte esterase detection by dipstick 1+ NEGATIVE Automated urine sediment erythrocyte count by microscopy (number/high power field) NONE NRG Automated urine sediment leukocyte count by microscopy (number/high power field) [HPF] NRG Bacteria detection in urine sediment by light microscopy FEW NRG Squamous epithelial cells detection in urine sediment by light microscopy 2-5 NRG Crystals detection in urine sediment by light microscopy NONE NRG Casts detection in urine sediment by light microscopy NONE NRG Mucus detection in urine sediment by light microscopy NEGATIVE NRG Complete urinalysis with reflex to culture CULTURE PENDING NRG Bacterial urine culture - 02/01/19 01:05 Bacterial urine culture 3 OR MORE NRG COLONY COUNT 60,000 cfu/ml NRG FTX;REPORTABLE GRAM POSITIVE ISOLATES; SUGGESTING NRG FREE TEXT ENTRY 2 PROBABLE COLLECTION CONTAMINATION WITH NRG FREE TEXT ENTRY 3 SKIN EDGAR. NO SUSCEPTIBILITY PERFORMED. NRG Blood CBC with ordered manual differential panel - 02/01/19 11:44 Blood leukocytes automated count (number/volume) 11.5 10*3/uL 4.3-11.0 Blood erythrocytes automated count (number/volume) 3.87 10*6/uL 4.35-5.85 Venous blood hemoglobin measurement (mass/volume) 12.0 g/dL 11.5-16.0 Blood hematocrit (volume fraction) 36 % 35-52 Automated erythrocyte mean corpuscular volume 93 [foz_us] 80-99 Automated erythrocyte mean corpuscular hemoglobin (mass per erythrocyte) 31 pg 25-34 Automated erythrocyte mean corpuscular hemoglobin concentration measurement (mass/volume) 34 g/dL 32-36 Automated erythrocyte distribution width ratio 13.3 % 10.0- 14.5 Automated blood platelet count (count/volume) 263 10*3/uL 130-400 Automated blood platelet mean volume measurement 9.6 [foz_us] 7.4-10.4 Automated blood neutrophils/100 leukocytes 76 % 42-75 Automated blood lymphocytes/100 leukocytes 16 % 12-44 Blood monocytes/100 leukocytes 6 % NRG Automated blood eosinophils/100 leukocytes 0 % 0-10 Automated blood basophils/100 leukocytes 0 % 0-10 Blood neutrophils automated count (number/volume) 8.7 10*3 1.8-7.8 Blood lymphocytes automated count (number/volume) 1.9 10*3 1.0-4.0 Blood monocytes automated count (number/volume) 0.8 10*3 0.0- 1.0 Automated eosinophil count 0.0 10*3/uL 0.0-0.3 Automated blood basophil count (count/volume) 0.0 10*3/uL 0.0-0.1 Manual blood segmented neutrophils/100 leukocytes 74 % NRG Blood band neutrophils/100 leukocytes 2 % NRG Manual blood lymphocytes/100 leukocytes 17 % NRG Manual eosinophils/100 leukocytes in nose 1 % NRG Manual blood basophils/100 leukocytes 0 % NRG Comprehensive metabolic panel - 02/01/19 11:44 Serum or plasma sodium measurement (moles/volume) 134 mmol/L 135-145 Serum or plasma potassium measurement (moles/volume) 4.2 mmol/L 3.6-5.0 Serum or plasma chloride measurement (moles/volume) 98 mmol/L 98-107 Carbon dioxide 30 mmol/L 21-32 Serum or plasma anion gap determination (moles/volume) 6 mmol/L 5-14 Serum or plasma urea nitrogen measurement (mass/volume) 6 mg/dL 7-18 Serum or plasma creatinine measurement (mass/volume) 0.57 mg/dL 0.60-1.30 Serum or plasma urea nitrogen/creatinine mass ratio 11 NRG Serum or plasma creatinine measurement with calculation of estimated glomerular filtration rate > NRG Serum or plasma glucose measurement (mass/volume) 73 mg/dL 70-105 Serum or plasma calcium measurement (mass/volume) 9.0 mg/dL 8.5-10.1 Serum or plasma total bilirubin measurement (mass/volume) 0.9 mg/dL 0.1-1.0 Serum or plasma alkaline phosphatase measurement (enzymatic activity/volume) 128 U/L 40-136 Serum or plasma aspartate aminotransferase measurement (enzymatic activity/volume) 15 U/L 5-34 Serum or plasma alanine aminotransferase measurement (enzymatic activity/volume) 13 U/L 0-55 Serum or plasma protein measurement (mass/volume) 6.8 g/dL 6.4-8.2 Serum or plasma albumin measurement (mass/volume) 3.8 g/dL 3.2-4.5 CALCIUM CORRECTED 9.2 mg/dL 8.5-10.1 CULTURE, GROUP B STREP WITH SUSCEPTIBILITY - 03/01/19 10:09 CULTURE, GROUP B STREP WITH SUSCEPTIBILITY SEE NOTE NRG Encounters ACCT No. Visit Date/Time Discharge Status Pt. Type Provider Facility Loc./Unit Complaint [id number] 03/15/2019 08:45:00 [id number] 03/01/2019 09:45:00 Document Registration [id number] 12/21/2018 08:45:00 Document Registration [id number] 02/01/2019 11:29:00 02/01/2019 23:59:59 CLS Outpatient PHILIP CABRERA, CURRY Guillen [facility] RAD FS O47.00 [id number] 02/01/2019 00:18:00 02/01/2019 01:58:00 DIS Outpatient CURRY PALACIOS MD [facility] WSo CONTRACTIONS FLUID LEAKAGE [id number] 01/31/2019 22:08:00 01/31/2019 22:57:00 DIS Emergency CINTIA CABRERA, JENNIFER Finley [facility] ER FS POSSIBLE CONTRACTIONS [id number] 12/18/2018 13:13:00 12/18/2018 16:10:00 DIS Outpatient ANITA BOWMAN DO [facility] WSo LOWER LEFT SIDE ABD PAIN [id number] 11/13/2018 12:40:00 11/13/2018 15:18:00 DIS Emergency BRYAN CABRERA, BAO Wilks [facility] ER FS VOMITING; DIARRHEA
--- NOTE | 2019-03-17 00:55 | NUR ---
pt decided to go to via [facility] where her obgyn is located after talking with ed
[2019-03-17 00:57] VITALS: BP 154/76
--- NOTE | 2019-03-17 00:57 | NUR ---
dispatch phone number for ems given to pts before dc
[2019-03-17] MEDS ORDERED: flexeril (03:23)
[2019-03-18] MEDS ORDERED: DOCU100C37 PO (07:57)
[2019-03-18] MEDS ORDERED: OXYC1TAB12 PO (07:57)
[2019-03-18] MEDS ORDERED: IBUP-1780 PO (07:57)
== END 2019-03-17 00:57 ==
LOC: EDUNIT# 00:30 → ER FS 00:31
DX: O62.9 Abnormality of forces of labor, unspecified (principal)

== ENCOUNTER 2019-03-17 01:59 | Inpatient (IN) | payer MEDICAID ==
[2019-03-17] VITALS (49 sets, daily range): BP systolic 90–175; BP diastolic 55–94
[~2019-03-17] VITALS: Ht 162.6 cm; Wt 79.6 kg
--- NOTE | 2019-03-17 02:05 | NUR ---
NIRAV CHAPPELL presented to unit via AMBULATORY from ED, accompanied by S.O, with c/o CONTRACTIONS. NIRAV CHAPPELL weighed, gowned, voided, and to bed. EFHM and TOCO applied, VS taken. NIRAV CHAPPELL oriented to bed controls, call light, TV, heat, and A/C controls.
[2019-03-17 02:35] LABS: BILIRUBIN,URINE NEGATIVE (NEGATIVE); CLARITY,URINE CLEAR; COLOR,URINE YELLOW; GLUCOSE, URINE (UA) NEGATIVE (NEGATIVE); KETONES,URINE NEGATIVE (NEGATIVE); LEUKOCYTE ESTERASE ,URINE 2+ (NEGATIVE); NITRITE,URINE NEGATIVE (NEGATIVE); PH,URINE 6.5 (5-9); PROTEIN,URINE NEGATIVE (NEGATIVE); UROBILINOGEN,URINE NORMAL (NORMAL)
[2019-03-17 02:53] LABS: BACTERIA,URINE MODERATE /HPF; RBC,URINE RARE /HPF; SQUAMOUS EPITHELIAL CELL,UR 0-2 /HPF
[2019-03-17] MEDS ORDERED: flexeril (03:23)
[2019-03-17] MEDS ORDERED: D5 LR IV SOLUTION 1,000 ML IV ONE (03:35)
--- NOTE | 2019-03-17 03:39 | NUR ---
Notified Dr Hairston of pt admission, cervical exam, contraction pattern and UA. Orders to admit and get epidural if pt desires.
[2019-03-17] MEDS: D5 LR IV SOLUTION 1,000 ML IV SCH ×2 (04:10→11:20)
[2019-03-17] MEDS ORDERED: ONDANSETRON 4 MG/2 ML (SDV) Z0FRAN ONE (04:18)
[2019-03-17] MEDS ORDERED: SUFENTA 0.6MCG/ML BUPIVA 0.125 100 ML ONE (04:22)
[2019-03-17 04:26] LABS: BASOPHILS % (AUTO) 0 % (0-10); EOSINOPHILS # (AUTO) 0.1 10^3/uL (0.0-0.3); EOSINOPHILS % (AUTO) 0 % (0-10); HEMATOCRIT 36 % (35-52); LYMPHOCYTES # (AUTO) 2.1 X 10^3 (1.0-4.0); LYMPHOCYTES % (AUTO) 16 % (12-44); MEAN CORPUSCULAR HEMOGLOBIN 30 PG (25-34); MEAN CORPUSCULAR HGB CONC 34 G/DL (32-36); MEAN CORPUSCULAR VOLUME 90 FL (80-99); MEAN PLATELET VOLUME 10.6 FL (7.4-10.4); MONOCYTES # (AUTO) 1.1 X 10^3 (0.0-1.0); MONOCYTES % (AUTO) 9 % (0-12); NEUTROPHILS # (AUTO) 9.6 X 10^3 (1.8-7.8); NEUTROPHILS % (AUTO) 75 % (42-75); PLATELET COUNT 230 10^3/uL (130-400); RED CELL DISTRIBUTION WIDTH 14.2 % (10.0-14.5); WHITE BLOOD COUNT 12.8 10^3/uL (4.3-11.0)
--- OUTSIDE RECORDS SUMMARY | 2019-03-17 04:41 | XMS REPORT | Continuity of Care Document ---
Author Organization Unknown Address Unknown Allergies Active Description Code Type Severity Reaction Onset Reported/Identified Relationship to Patient Clinical Status Yes No Known Drug Allergies [id number] Drug Allergy Unknown N/A 11/13/2018 Medications There [...] OF FORCES OF LABOR, UNSPECIF 01/31/2019 JENNIFER CHAMBERLAIN MD Ot Z3A.21 21 WEEKS [...] 10.4 fL 7.5-12.5 ABSOLUTE NEUTROPHILS 8466 cells/uL 3773-1118 ABSOLUTE LYMPHOCYTES 1102 cells/uL 850-3900 ABSOLUTE MONOCYTES [...] B STREP WITH SUSCEPTIBILITY SEE NOTE NRG Complete urinalysis with reflex to culture - 03/17/19 02:25 Urine color determination YELLOW NRG Urine clarity determination CLEAR NRG Urine pH measurement by test strip 6.5 5-9 Specific gravity of urine by test strip 1.020 1.016-1.022 Urine protein assay by test strip, semi-quantitative NEGATIVE NEGATIVE Urine glucose detection by automated test strip NEGATIVE NEGATIVE Erythrocytes detection in urine sediment by light microscopy 2+ NEGATIVE Urine ketones detection by automated test strip NEGATIVE NEGATIVE Urine nitrite detection by test strip NEGATIVE NEGATIVE Urine total bilirubin detection by test strip NEGATIVE NEGATIVE Urine urobilinogen measurement by automated test strip (mass/volume) NORMAL NORMAL Urine leukocyte esterase detection by dipstick 2+ NEGATIVE Automated urine sediment erythrocyte count by microscopy (number/high power field) RARE NRG Automated urine sediment leukocyte count by microscopy (number/high power field) [HPF] NRG Bacteria detection in urine sediment by light microscopy MODERATE NRG Squamous epithelial cells detection in urine sediment by light microscopy 0-2 NRG Crystals detection in urine sediment by light microscopy NONE NRG Casts detection in urine sediment by light microscopy NONE NRG Mucus detection in urine sediment by light microscopy NEGATIVE NRG Complete urinalysis with reflex to culture YES NRG Complete blood count (CBC) with automated white blood cell (WBC) differential - 03/17/19 04:16 Blood leukocytes automated count (number/volume) 12.8 10*3/uL 4.3-11.0 Blood erythrocytes automated count (number/volume) 3.97 10*6/uL 4.35-5.85 Venous blood hemoglobin measurement (mass/volume) 12.0 g/dL 11.5-16.0 Blood hematocrit (volume fraction) 36 % 35-52 Automated erythrocyte mean corpuscular volume 90 [foz_us] 80-99 Automated erythrocyte mean corpuscular hemoglobin (mass per erythrocyte) 30 pg 25-34 Automated erythrocyte mean corpuscular hemoglobin concentration measurement (mass/volume) 34 g/dL 32-36 Automated erythrocyte distribution width ratio 14.2 % 10.0- 14.5 Automated blood platelet count (count/volume) 230 10*3/uL 130-400 Automated blood platelet mean volume measurement 10.6 [foz_us] 7.4-10.4 Automated blood neutrophils/100 leukocytes 75 % 42-75 Automated blood lymphocytes/100 leukocytes 16 % 12-44 Blood monocytes/100 leukocytes 9 % 0-12 Automated blood eosinophils/100 leukocytes 0 % 0-10 Automated blood basophils/100 leukocytes 0 % 0-10 Blood neutrophils automated count (number/volume) 9.6 10*3 1.8-7.8 Blood lymphocytes automated count (number/volume) 2.1 10*3 1.0-4.0 Blood monocytes automated count (number/volume) 1.1 10*3 0.0- 1.0 Automated eosinophil count 0.1 10*3/uL 0.0-0.3 Automated blood basophil count (count/volume) 0.0 10*3/uL 0.0-0.1 Encounters ACCT No. Visit Date/Time Discharge Status Pt. Type Provider Facility Loc./Unit Complaint [id number] 03/15/2019 08:45:00 [facility] [id number] 03/01/2019 09:45:00 Document Registration [id number] 12/21/2018 08:45:00 Document Registration [id number] 02/01/2019 11:29:00 02/01/2019 23:59:59 CLS Outpatient PHILIP CABRERA, CURRY Guillen [facility] RAD FS O47.00 [id number] 02/01/2019 00:18:00 02/01/2019 01:58:00 DIS Outpatient PHILIP CABRERA, CURRY Guillen [facility] WSo CONTRACTIONS FLUID LEAKAGE [id number] 01/31/2019 22:08:00 01/31/2019 22:57:00 DIS Emergency CINTIA CABRERA, JENNIFER Finley [facility] ER FS POSSIBLE CONTRACTIONS [id number] 12/18/2018 13:13:00 12/18/2018 16:10:00 DIS Outpatient ANITA BOWMAN DO K [facility] WSo LOWER LEFT SIDE ABD PAIN [id number] 11/13/2018 12:40:00 11/13/2018 15:18:00 DIS Emergency BRYAN CABRERA, BAO Wilks [facility] ER FS VOMITING; DIARRHEA [id number] 03/17/2019 02:53:00 Document Registration
[2019-03-17] MEDS ORDERED: LACTATED RINGERS 1,000 ML IV SCH (05:31)
[2019-03-17] MEDS ORDERED: METOCLOPRAMIDE INJ 10 MG/2 ML (REGLAN) IV PRN (05:45)
[2019-03-17] MEDS ORDERED: ONDANSETRON 4 MG/2 ML (SDV) Z0FRAN IV PRN (05:45)
[2019-03-17] MEDS ORDERED: EPIDURAL (SUFENTA 0.6MCG/ML BUPIVA 0.125%) 100 ML BAG EPI SCH (05:45)
[2019-03-17] MEDS ORDERED: NALOXONE 0.4 MG/ML 1 ML (NARCAN) VIAL IV PRN ×2 (05:45)
[2019-03-17] MEDS ORDERED: diphenhydrAMINE 50 MG/ML INJ (BENADRYL) IV PRN (05:45)
--- NOTE | 2019-03-17 08:07 | History & Physical-OB ---
OB - Chief Complaint & HPI Date/Time Date of Admission: Date of Admission: Mar 17, 2019 at 03:40 Date seen by a Provider: Mar 17, 2019 Time Seen by a Provider: 08:03 Chief Complaint/History OB-Reason for Admission/Chief: Onset of Labor Hx : 1 Hx Para: 0 Hx Last Menstrual Period: 06/22/19 Expected Date of Delivery: Mar 29, 2019 Gestational Age in Weeks: 38 Gestational Age in Days: 2 Allergies and Home Medications Allergies Coded Allergies: No Known Drug Allergies (Unverified , 11/13/18) Home Medications Vit W-Ca,Fe,FA(<1 mg) 1 Each Tablet, 1 EACH PO DAILY, (Reported) Patient Home Medication List Home Medication List Reviewed: Yes OB - History Hx of Present Care: Yes Ultrasounds: Normal mid trimester US Obstetrical Complications: None Medical Complications: None Information Induced Hypertension: No Maternal Gestational Diabetes: No Hemorrhage: No Obstetrical History Hx : 1 Hx Para: 0 Patient Past Medical History s/p tonsillectomy Social History/Family History HIV/AIDS: No Recent Infectious Disease Expo: No Sexually Transmitted Disease: No Alcohol Use: Denies Use Recreational Drug Use: No 2nd Hand Smoke Exposure: No Immunizations Rubella: immune RPR/VDRL: Negative GBS Status: Negative HBsAG: Negative OB - Admission Exam Physical Exam Vitals: Vital Signs 03/17/19 07:45 Temp 98.3 Pulse 77 Resp 14 B/P (MAP) 118/61 (80) Pulse Ox 98 O2 Delivery Room Air Cervical Dilatation: 6cm (4cm on admission) Effacement: 100% Station: 0 Membranes: Ruptured (AROM) Amniotic Fluid: Clear Heart Rate: 140's Accelerations: Accelerations Present Decelerations: No Decelerations Short Term Variability: Present Nursing Home Variability: Average (6-25) Contractions on Admission: 6-10 Minutes Apart Intensity: Moderate Labs Laboratory Tests Test 03/17/19 02:25 03/17/19 04:16 Range/Units Urine Color YELLOW Urine Clarity CLEAR Urine pH 6.5 5-9 Urine Specific [place] 1.020 1.016-1.022 Urine Protein NEGATIVE NEGATIVE Urine Glucose (UA) NEGATIVE NEGATIVE Urine Ketones NEGATIVE NEGATIVE Urine Nitrite NEGATIVE NEGATIVE Urine Bilirubin NEGATIVE NEGATIVE Urine Urobilinogen NORMAL NORMAL MG/DL Urine Leukocyte Esterase 2+ H NEGATIVE Urine RBC (Auto) 2+ H NEGATIVE Urine RBC RARE /HPF Urine WBC 2-5 /HPF Urine Squamous Epithelial Cells 0-2 /HPF Urine Crystals NONE /LPF Urine Bacteria MODERATE H /HPF Urine Casts NONE /LPF Urine Mucus NEGATIVE /LPF Urine Culture Indicated YES White Blood Count 12.8 H 4.3-11.0 10^3/uL Red Blood Count 3.97 L 4.35-5.85 10^6/uL Hemoglobin 12.0 11.5-16.0 G/DL Hematocrit 36 35-52 % Mean Corpuscular Volume 90 80-99 FL Mean Corpuscular Hemoglobin 30 25-34 PG Mean Corpuscular Hemoglobin Concent 34 32-36 G/DL Red Cell Distribution Width 14.2 10.0-14.5 % Platelet Count 230 130-400 10^3/uL Mean Platelet Volume 10.6 H 7.4-10.4 FL Neutrophils (%) (Auto) 75 42-75 % Lymphocytes (%) (Auto) 16 12-44 % Monocytes (%) (Auto) 9 0-12 % Eosinophils (%) (Auto) 0 0-10 % Basophils (%) (Auto) 0 0-10 % Neutrophils # (Auto) 9.6 H 1.8-7.8 X 10^3 Lymphocytes # (Auto) 2.1 1.0-4.0 X 10^3 Monocytes # (Auto) 1.1 H 0.0-1.0 X 10^3 Eosinophils # (Auto) 0.1 0.0-0.3 10^3/uL Basophils # (Auto) 0.0 0.0-0.1 10^3/uL OB - Assessment/Plan/Diagnosis Assessment Assessment: active labor Admission Dx at 38w5d with ORIN Admission Status: Inpatient Order (span 2 midnights) Reason for Inpatient Admission: labor and delivery Plan Plan: Expectant Management Induction Method: AROM (augmentation) Copy Copies To 1: CURRY PALACIOS MD, LINDA K DO Mar 17, 2019 08:07
[2019-03-17] MEDS ORDERED: MINERAL OIL CONCENTRATE 99.9% 15 ML UDC ONE (11:50)
[2019-03-17] MEDS ORDERED: OXYTOCIN/NORMAL SALINE 500 ML IV ONE (11:50)
[2019-03-17] MEDS ORDERED: LIDOCAINE/EPI 2% 1:200,00 (XYLOCAINE) 10 ML VIAL ONE (13:58)
[2019-03-17] MEDS ORDERED: CITRIC ACID/SOB CIT (BICITRA) 30 ML UDC ONE (14:19)
[2019-03-17] MEDS ORDERED: FAMOTIDINE 20MG/2ML IV (PEPCID) ONE (14:19)
[2019-03-17] MEDS ORDERED: TERBUTALINE INJ 1 MG/ML (BRETHINE) AMP ONE (14:31)
[2019-03-17] MEDS ORDERED: metroNIDAZOLE 500MG/100ML IVPB 100 ML ONE (14:32)
--- NOTE | 2019-03-17 14:38 | Labor Progress Note ---
Labor Progress Note Labor Progress Note Date Seen by Provider: Mar 17, 2019 Time Seen by Provider: 14:33 Pt pushed for approx 2 hours. Vacuum placed with 2 pop-offs. No significant improvement in decent. caput increasing as is mother vaginal/labial swelling. Maternal exhaustion with less effective pushing. Assessment/Plan: Lizet Su is a (23 /Para 1 / 0,Gestational Age (wks)38 here for ORIN. Failure to descend secondary to CPD. Maternal exhaustion. Discussed risk vs benefit of delivery. Patient would like to proceed. Dr. Siu consulted for . heart tones reassuring. Vitals - Labs Vital Signs - I&O Vital Signs Date Time Temp Pulse Resp B/P (MAP) Pulse Ox O2 Delivery O2 Flow Rate FiO2 03/17/19 13:00 81 22 126/72 (90) Room Air 03/17/19 12:45 58 22 129/58 (81) Room Air 03/17/19 12:30 67 22 129/60 (83) Room Air 03/17/19 12:15 72 20 130/60 (83) Room Air 03/17/19 12:00 73 20 126/60 (82) 99 Room Air 03/17/19 11:45 79 18 136/80 (98) 99 Room Air 03/17/19 11:30 74 18 122/74 (90) 100 Room Air 03/17/19 11:15 98.2 65 18 153/94 (113) 99 Room Air 03/17/19 11:00 65 18 146/81 (102) 99 Room Air 03/17/19 10:45 70 18 131/80 (97) 99 Room Air 03/17/19 10:30 78 18 127/82 (97) 99 Room Air 03/17/19 10:15 75 18 131/84 (100) 98 Room Air 03/17/19 10:00 79 18 132/81 (98) 97 Room Air 03/17/19 09:45 76 18 131/73 (92) 97 Room Air 03/17/19 09:30 78 18 115/64 (81) 97 Room Air 03/17/19 09:15 74 18 115/60 (78) 97 Room Air 03/17/19 09:00 77 18 110/63 (79) 97 Room Air 03/17/19 08:45 71 20 114/61 (78) 97 Room Air 03/17/19 08:30 71 18 114/65 (81) 97 Room Air 03/17/19 08:15 70 18 110/58 (75) 97 Room Air 03/17/19 08:00 71 18 111/74 (86) 97 Room Air 03/17/19 07:45 98.3 77 14 118/61 (80) 98 Room Air 03/17/19 07:30 69 16 115/57 (76) 97 Room Air 03/17/19 07:15 75 16 114/56 (75) 97 Room Air 03/17/19 07:00 71 16 116/64 (81) 98 Room Air 03/17/19 06:45 72 16 98 Room Air 03/17/19 06:30 65 16 100 Room Air 03/17/19 06:28 Room Air 03/17/19 06:15 75 16 124/70 (88) 100 Room Air 03/17/19 06:00 96.4 71 128/79 (95) 99 Room Air 03/17/19 05:50 86 135/77 (96) 98 03/17/19 05:45 81 123/63 (83) 98 Room Air 03/17/19 05:40 73 126/73 (90) 98 Room Air 03/17/19 05:30 75 16 120/64 (82) 97 Room Air 03/17/19 05:21 86 20 135/86 (102) Room Air 03/17/19 05:16 72 20 133/59 (83) Room Air 03/17/19 05:11 86 20 175/71 (105) 100 Room Air 03/17/19 05:03 76 16 145/69 (94) 100 Room Air 03/17/19 04:56 77 16 133/86 (102) 99 Room Air 03/17/19 02:15 98.2 75 16 128/80 (96) Room Air I & O 03/17/19 07:00 Intake Total 1000 ml Balance 1000 ml Labs Laboratory Tests 03/17/19 02:25: Urine Color YELLOW, Urine Clarity CLEAR, Urine pH 6.5, Urine Specific [place] 1.020, Urine Protein NEGATIVE, Urine Glucose (UA) NEGATIVE, Urine Ketones NEGATIVE, Urine Nitrite NEGATIVE, Urine Bilirubin NEGATIVE, Urine Urobilinogen NORMAL, Urine Leukocyte Esterase 2+H, Urine RBC (Auto) 2+H, Urine RBC RARE, Urine WBC 2-5, Urine Squamous Epithelial Cells 0-2, Urine Crystals NONE, Urine Bacteria MODERATEH, Urine Casts NONE, Urine Mucus NEGATIVE, Urine Culture Indicated YES 03/17/19 04:16: White Blood Count 12.8H, Red Blood Count 3.97L, Hemoglobin 12.0, Hematocrit 36, Mean Corpuscular Volume 90, Mean Corpuscular Hemoglobin 30, Mean Corpuscular Hemoglobin Concent 34, Red Cell Distribution Width 14.2, Platelet Count 230, Mean Platelet Volume 10.6H, Neutrophils (%) (Auto) 75, Lymphocytes (%) (Auto) 16, Monocytes (%) (Auto) 9, Eosinophils (%) (Auto) 0, Basophils (%) (Auto) 0, Neutrophils # (Auto) 9.6H, Lymphocytes # (Auto) 2.1, Monocytes # (Auto) 1.1H, Eosinophils # (Auto) 0.1, Basophils # (Auto) 0.0 ANITA BOWMAN DO Mar 17, 2019 14:38
[2019-03-17] MEDS ORDERED: TERBUTALINE INJ 1 MG/ML (BRETHINE) AMP SC ONE (14:45)
[2019-03-17] MEDS ORDERED: fentaNYL INJECTION 100 MCG/2 ML AMP ONE (14:52)
[2019-03-17] MEDS ORDERED: OXYTOCIN/NORMAL SALINE 1,000 ML IV ONE (14:55)
[2019-03-17] MEDS ORDERED: ceFAZolin INJECTION 2,000 MG in WATER (STERILE) FOR INJECTION 10 ML IV NR (15:00)
[2019-03-17] MEDS ORDERED: metroNIDAZOLE 500MG/100ML IVPB 100 ML IV NR (15:00)
[2019-03-17] MEDS ORDERED: BUPIVACAINE 0.5% 30 ML (SENSORCAINE) VIAL ONE (16:12)
[2019-03-17] MEDS ORDERED: D5 LR IV SOLUTION 1,000 ML IV SCH (17:06)
[2019-03-17] MEDS ORDERED: OXYTOCIN/NORMAL SALINE 500 ML IV SCH (17:06)
[2019-03-17] MEDS ORDERED: KETOROLAC 30 MG/ML VIAL ONE (17:09)
[2019-03-17] MEDS ORDERED: TETANUS,DIPTH,PERTUSS P/F (BOOSTRIX) 0.5 ML VIAL IM ONE (17:15)
[2019-03-17] MEDS ORDERED: ONDANSETRON 4 MG/2 ML (SDV) Z0FRAN IVP PRN (17:15)
[2019-03-17] MEDS ORDERED: MEASLES,MUMPS,RUBELLA 1 EA INJ SC ONE (17:15)
[2019-03-17] MEDS: KETOROLAC 30 MG/ML VIAL IVP PRN ×2 (17:22→23:29)
--- NOTE | 2019-03-17 18:01 | NUR ---
PT INFANT WITH MOM AT THE BEDSIDE ASSISTING. INFANT LATCHED ON, ACTIVE SUCKLING NOTED. QUESTIONS ANSWERED. NO FURTHER NEEDS VOICED.
--- NOTE | 2019-03-17 18:55 | NUR ---
PT AWAKE, IN BED. FAMILY AT THE BEDSIDE. NO NEEDS VOICED.
[2019-03-17] MEDS ORDERED: oxyCODONE/APAP 10/325MG (PERCOCET 10) TABLET PO ONE (19:23)
[2019-03-17] MEDS: oxyCODONE/APAP 10/325MG (PERCOCET 10) TABLET PO PRN ×2 (19:36→20:54)
--- NOTE | 2019-03-17 20:00 | NUR ---
ASSESSMENT COMPLETED. PT STATES SHE HAS THE URGE TO VOID. PT ASSISTED TO THE BATHROOM. UNABLE TO VOID AT THIS TIME. PERICARE COMPLETED. PT ASSISTED BACK TO BED.
[2019-03-17] MEDS ORDERED: DOCUSATE SODIUM 100 MG (COLACE) CAP PO SCH (21:00)
--- NOTE | 2019-03-17 22:00 | NUR ---
PT UP TO THE BATHROOM. POSITIVE VOID. PT ASSISTED BACK TO BED.
--- NOTE | 2019-03-17 23:34 | OPERATIVE REPORT ---
DATE OF SERVICE: 03/17/2019 PREOPERATIVE DIAGNOSIS: Term at 38 weeks' gestation in labor with failure to progress/failure to descend. POSTOPERATIVE DIAGNOSIS: Term at 38 weeks' gestation in labor with failure to progress/failure to descend disproportion with persistent OP. OPERATIVE PROCEDURE: Primary low transverse delivery of a viable with Apgars of 7 and 9 at 1 and 5 minutes of life respectively, weight of 6 pounds and 12 ounces. time of 15:31 and a cord blood pH of 7.20. Compliance Nurse for delivery was Dr. Hairston. ALCOHOL STILL OPERATOR FOR DELIVERY: Dr. Hairston. OPERATIVE DESCRIPTION: With the patient in supine position under satisfactory spinal analgesia, she was repositioned in dorsal lithotomy position and prepped and draped in the usual fashion for abdominal surgery. Crawley catheter was placed in the urinary bladder. A Pfannenstiel incision made through skin with a scalpel. The patient's abdomen entered in the usual manner. Bladder retractor placed in position, clean scalpel was used to make a 4 cm hysterotomy incision transversely across the lower uterine segment. The final entry into the uterus was blunt. That incision was extended transversely by blunt dissection, releasing only a small amount of amniotic fluid. A viable infant was delivered via the uterine incision. Jimenez forceps were applied using just the posterior blade as a vectis to elevate the head out of the pelvis. The infant had a double nuchal cord that was easily released. The was bulb suctioned on delivery of the head and again on completion of delivery, the umbilical cord was doubly clamped and cut and Dr. Hairston took the to the warmer. Cord bloods were obtained. The placenta delivered spontaneously Flood. It was somewhat bilobed placenta, but otherwise normal. The uterus was exteriorized. wiped clean with a wet laparotomy sponge. Uterine incision closed with a running locked suture of 2-0 Vicryl. Hemostasis was complete. The uterus was returned to the abdominal cavity. All blood clot and debris removed from the abdominal cavity. Sponge, needle counts were correct. Hemostasis assured. The anterior peritoneum was closed with running suture of 2-0 Vicryl. The rectus muscles were closed with that suture also. The rectus fascia was closed with 2-0 Vicryl, subcutaneous tissue with 2-0 Vicryl and the skin was stapled. Sponge and needle counts were correct on completion of the procedure. Estimated blood loss was 500 mL. The patient tolerated the procedure well and was transferred to the recovery room in stable condition. The had been taken stable to the full term nursery under the care of Dr. Hairston. Job ID: [id number] DocumentID: [id number] Dictated Date: 03/17/2019 16:03:39 Cook [place]ili Date: 03/17/2019 23:33:15 Dictated By: DUC LUNA MD
[2019-03-18] MEDS: DOCUSATE SODIUM 100 MG (COLACE) CAP PO SCH ×3 (00:20→20:33)
[2019-03-18] MEDS: oxyCODONE/APAP 10/325MG (PERCOCET 10) TABLET PO PRN ×5 (01:37→20:33)
[2019-03-18 01:49] VITALS: BP 123/81
[2019-03-18] MEDS: KETOROLAC 30 MG/ML VIAL IVP PRN (05:22)
--- NOTE | 2019-03-18 05:54 | NUR ---
abdominal dsg removed. pt tolerated well. clips intact.
[2019-03-18 05:57] VITALS: BP 114/74
--- NOTE | 2019-03-18 07:45 | NUR ---
here to see pt.
--- NOTE | 2019-03-18 07:55 | Progress Note ---
Standard Progress Note Progress Notes/Assess & Plan Date Seen by a Provider: Mar 18, 2019 Time Seen by a Provider: 07:54 Progress/Assessment & Plan This patient is without complaint. She is ambulating, voiding, tolerating oral intake well has good pain control. Patient denies chest pain, denies shortness of breath, denies nausea vomiting, and denies headache. Vital Signs 03/18/19 05:57 Temp 98.3 Pulse 87 Resp 18 B/P (MAP) 114/74 (87) Pulse Ox 99 O2 Delivery Room Air Vital signs are stable. Patient is afebrile. The abdomen is benign. The surgical incision is clean dry and intact. Extremities show no clubbing or cyanosis. There is no Homans sign. Assessment and plan postoperative day number 1 status post primary delivery doing well. Plan is for routine convalescence care DUC LUNA MD Mar 18, 2019 07:55
[2019-03-18] MEDS ORDERED: IBUP-1780 PO (07:57)
[2019-03-18] MEDS ORDERED: DOCU100C37 PO (07:57)
[2019-03-18] MEDS ORDERED: OXYC1TAB12 PO (07:57)
--- NOTE | 2019-03-18 07:58 | Discharge Instructions ---
Discharge Instructions Discharge Medications New, Converted or Re-Newed RX: RX on Chart Patient Instructions Patient Instructions: As directed Return to The Hospital For: As directed Activity & Diet Discharge Diet: No Restrictions Activity as Tolerated: No Orders-Post D/C & Referrals Follow Up Appt: RTC 1 week for incision check with Dr. Siu Call to make follow up appt. for patient with Dr. Hairston in 6 weeks. Wound Care: Remove alli, apply benzoin and steri strips. Activity Per routine post instructions. Please call in RX to patient pharmacy. Diet as tolerated Patient may shower or tub bathe as desired. Continue home meds DUC SIU MD Mar 18, 2019 07:58
[2019-03-18 08:33] VITALS: BP 119/72
--- NOTE | 2019-03-18 08:33 | NUR ---
initial shift assessment completed, see interventions for further. abd incision ARASH with clips D/I. incision edges well approximated, no sx's of infection noted. POC reviewed with pt, verbalizes understanding.
--- NOTE | 2019-03-18 08:49 | NUR ---
Pt up to shower.
[2019-03-18 13:15] VITALS: BP 141/97
--- NOTE | 2019-03-18 13:15 | NUR ---
scheduled Motrin given. see eMar for further. reviewed Percocet administration schedule r/t Tylenol intake. pt reports "numbness/needle prickeling" on top of Rt.couch and upper Lt.couch.
[2019-03-18] MEDS: IBUPROFEN 800 MG (MOTRIN) TAB PO SCH ×3 (13:21→23:44)
--- NOTE | 2019-03-18 13:21 | NUR ---
Dr. Flanagan was notified of pt's c/o r/t "numbness/needle pricking"on top of Rt. couch and upper Lt.couch.
[2019-03-18] MEDS ORDERED: SIMETHICONE 80 MG (MYLICON) CHEW ONE (13:44)
[2019-03-18] MEDS: SIMETHICONE 80 MG (MYLICON) CHEW PO PRN ×2 (13:53→18:35)
--- NOTE | 2019-03-18 14:54 | Anesthesia-Regional Post-Op ---
Regional Patient Condition Mental Status: Alert, Oriented x3 Circulation: Same as Pre-Op Headache: Absent Sensation: Full Recovery Motor Block: Absent Post Op Complications Complications None Follow Up Care/Instructions Patient Instructions None needed. Anesthesia/Patient Condition Patient is doing well, no complaints, stable vital signs, no apparent adverse anesthesia problems. No complications reported per nursing. KATHY YOU CRNA Mar 18, 2019 14:54
[2019-03-18 18:30] VITALS: BP 133/83
--- NOTE | 2019-03-18 19:27 | NUR ---
report given to next shift.
--- NOTE | 2019-03-18 20:45 | NUR ---
pt up ambulating around in room. just finished with stork dinner. pt requesting pain meds and ice pack for incision. request given. assessment completed. pt denies any further needs at this time. will continue to monitor.
[2019-03-19 00:44] VITALS: BP 139/85
[2019-03-19 03:00] VITALS: BP 118/68
[2019-03-19] MEDS: oxyCODONE/APAP 10/325MG (PERCOCET 10) TABLET PO PRN ×2 (04:19→10:06)
[2019-03-19] MEDS: IBUPROFEN 800 MG (MOTRIN) TAB PO SCH ×2 (05:36→11:14)
--- NOTE | 2019-03-19 07:41 | NUR ---
Dr freeman to see patient and new orders received.
--- NOTE | 2019-03-19 07:48 | Progress Note ---
Standard Progress Note Progress Notes/Assess & Plan Date Seen by a Provider: Mar 19, 2019 Time Seen by a Provider: 07:46 Progress/Assessment & Plan This patient is without complaint. She is ambulating, voiding, tolerating oral intake well has good pain control. Patient denies chest pain, denies shortness of breath, denies nausea vomiting, and denies headache. Vital Signs 03/18/19 05:57 Temp 98.3 Pulse 87 Resp 18 B/P (MAP) 114/74 (87) Pulse Ox 99 O2 Delivery Room Air Vital signs are stable. Patient is afebrile. The abdomen is benign. The surgical incision is clean dry and intact. Extremities show no clubbing or cyanosis. There is no Homans sign. Assessment and plan postoperative day number 1 status post primary delivery doing well. Plan is for routine convalescence care March 19, 2019 This patient is without complaint. She is ambulating, voiding, tolerating oral intake well and requesting discharge home. Vital Signs 03/19/19 03:00 Temp 97.8 Pulse 80 Resp 18 B/P (MAP) 118/68 (85) Pulse Ox 99 O2 Delivery Room Air Vital signs are stable. Patient is afebrile. The abdomen is benign. The surgical incision is clean dry and intact. Fundus is firm below the umbilicus and nontender. Extremities show no clubbing cyanosis. There is no Homans sign. Assessment and plan postoperative day number 2 status post primary delivery doing well. Plan is for discharge home with follow-up in clinic Final Diagnosis 38+ week primary delivery DUC LUNA MD Mar 19, 2019 07:48
[2019-03-19] MEDS: POLYETHYLENE GLYCOL 17 GM (MIRALAX) PACK PO PRN ×2 (08:17→10:11)
[2019-03-19] MEDS: DOCUSATE SODIUM 100 MG (COLACE) CAP PO SCH (08:17)
[2019-03-19 08:19] VITALS: BP 143/68
--- NOTE | 2019-03-19 08:40 | NUR ---
prescriptions called to [facility]. pt reports having had TDAP vaccine during this
[2019-03-19] MEDS: SIMETHICONE 80 MG (MYLICON) CHEW PO PRN (10:11)
--- NOTE | 2019-03-19 11:15 | NUR ---
alli dc'd, benzoin and steri strips applied.
--- NOTE | 2019-03-19 11:30 | NUR ---
Discharge instructions explained, signed and copy to patient. pt verbalized understanding of instructions and denied questions.
--- NOTE | 2019-03-19 12:47 | Anesthesia-Regional Post-Op ---
Regional Patient Condition Mental Status: Alert, Oriented x3 Circulation: Same as Pre-Op Headache: Absent Sensation: Decreased (Pt is having decreased sensation in the right anterior lower leg) Motor Block: Absent Post Op Complications Complications None Follow Up Care/Instructions Patient Instructions None needed. Anesthesia/Patient Condition Patient is doing well with stable vital signs. Her numbness has decreased in size in her right lower extremity, as yesterday her quad and posterior knee area were both also "numb and tingling." Today it is only her right anterior lower leg so it seems to be improving. I told her it should resolve within the next 1- 2 weeks, but she can contact us with any questions or concerns. She understood and agreed, and is planning discharge to home today. AQUILES AMBROSIO DO Mar 19, 2019 12:47
--- NOTE | 2019-03-19 13:10 | NUR ---
Discharged to home. Ambulates self downstairs with belongings accompanied by Director Lashaun Recinos and pt . To private vehicle.
== END 2019-03-19 13:10 | disposition home or self-care (01) | DRG 788 ==
LOC: WSo 01:59 → LDRP 02:00 → WSo 03:40 → LDRP 03:40 → WS 17:05
PROVIDERS: ADMIT Family Medicine; ATTEND Family Medicine
PROC: 10D00Z1 Extraction of Products of Conception, Low, Open Approach (ICD-10-PCS; principal; 2019-03-17 15:08)
DX: O33.9 Maternal care for disproportion, unspecified (principal); O64.0XX0 Obstructed labor due to incomplete rotation of fetal head, not applicable or unspecified; O75.81 Maternal exhaustion complicating labor and delivery; O66.5 Attempted application of vacuum extractor and forceps; O69.81X0 Labor and delivery complicated by cord around neck, without compression, not applicable or unspecified; O62.2 Other uterine inertia; Z37.0 Single live birth; Z3A.38 38 weeks gestation of pregnancy
CPT/HCPCS: 36415; 81000; 85025; 86850; 86900; 86901; 87088; 94664; 99212

== ENCOUNTER 2020-06-25 11:57 | Emergency (ER) | payer MEDICAID ==
[~2020-06-25] VITALS: Ht 160 cm; Wt 54.5 kg
[~2020-06-25 11:57] MED LIST changes: +DOCU100C37 PO; +IBUP-1780 PO; +OXYC1TAB12 PO; +flexeril
--- NOTE | 2020-06-25 12:07 | ED GI ---
General Stated Complaint: VOMITING;ABD PAIN Source of Information: Patient History of Present Illness Date Seen by Provider: Jun 25, 2020 Time Seen by Provider: 12:06 Initial Comments 24-year-old female presents with sudden onset of abdominal pain nausea, vomiting and diarrhea at 7 o'clock this morning. Presents with acute pain to her upper and mid abdomen. States she felt fine yesterday, ate sonic for dinner last night and actually slept okay. Denies fever, but states she is feeling like she has chills. Denies any known sick contacts. Allergies and Home Medications Allergies Coded Allergies: No Known Drug Allergies (Unverified , 11/13/18) Home Medications Docusate Sodium 100 Mg Capsule, 100 MG PO BID Prescribed by: DUC RANDOLPH on 03/18/19 075 Hyoscyamine Sulfate 0.125 Mg Tab.subl, 0.125 MG SL Q4H PRN for CRAMPS Prescribed by: CIPRIANO DESIR on 06/25/20 135 Ibuprofen 800 Mg Tablet, 800 MG PO Q6HR Prescribed by: DUC RANDOLPH on 03/18/19 075 Ondansetron 4 Mg Tab.rapdis, 4 MG PO TID Prescribed by: CIPRIANO DESIR on 06/25/20 135 Oxycodone HCl/Acetaminophen 1 Each Tablet, 1 TAB PO Q4HR PRN for PAIN-MODERATE TO SEVERE Prescribed by: DUC RANDOLPH on 03/18/19 075 Vit W-Ca,Fe,FA(<1 mg) 1 Each Tablet, 1 EACH PO DAILY, (Reported) Patient Home Medication List Home Medication List Reviewed: Yes Review of Systems Review of Systems Constitutional: chills; No fever; malaise EENTM: No Symptoms Reported Respiratory: Denies Cough, Denies Shortness of Air Cardiovascular: Denies Chest Pain, Denies Edema, Denies Lightheadedness Gastrointestinal: Abdominal Pain, Diarrhea, Nausea, Vomiting Genitourinary: Denies Drainage, Denies Frequency, Denies Flank Pain Musculoskeletal: No back pain, No joint pain Skin: No change in color, No rash Past Lscmfiy-Dqtlgc-Ippxan Hx Past Med/Social Hx: Reviewed Nursing Past Med/Soc Hx Patient Social History 2nd Hand Smoke Exposure: No Recent Hopitalizations: No Seasonal Allergies Seasonal Allergies: No Past Medical History Surgeries: Yes Tonsillectomy Respiratory: No Cardiac: No Neurological: No Sexually Transmitted Disease: No HIV/AIDS: No Genitourinary: No Gastrointestinal: No Musculoskeletal: No Endocrine: No HEENT: No Cancer: No Psychosocial: No Integumentary: No Blood Disorders: No Family Medical History Depression Hypertension 19 MOTHER Physical Exam Vital Signs Vital Signs - First Documented 06/25/20 12:10 Temp 35.5 Pulse 79 Resp 18 B/P (MAP) 128/69 (88) Pulse Ox 100 O2 Delivery Room Air Capillary Refill : Height/Weight/BMI Height: 5'4.00" Weight: 175lbs. 8.0oz. 79.970325sk; 30.1 BMI Method:Stated General Appearance: WD/WN, no apparent distress Respiratory: chest non-tender, lungs clear Cardiovascular: regular rate, rhythm, no edema, no gallop, no JVD Gastrointestinal: soft, no organomegaly, no pulsatile mass, abnormal bowel sounds (hyperactive); No distended, No guarding, No rebound; tenderness (diffuse epigastric); No mass Extremities: non-tender, no pedal edema Back: normal inspection, no CVA tenderness Neurologic/Psychiatric: alert, normal mood/affect, other (hystrionic) Skin: normal color, warm/dry Progress/Results/Core Measures Results/Orders Lab Results Laboratory Tests Test 06/25/20 12:01 06/25/20 12:10 Range/Units Urine Color YELLOW Urine Clarity CLEAR Urine pH 7.0 5-9 Urine Specific Ellis 1.010 L 1.016-1.022 Urine Protein NEGATIVE NEGATIVE Urine Glucose (UA) NEGATIVE NEGATIVE Urine Ketones 2+ H NEGATIVE Urine Nitrite NEGATIVE NEGATIVE Urine Bilirubin NEGATIVE NEGATIVE Urine Urobilinogen 0.2 < = 1.0 MG/DL Urine Leukocyte Esterase NEGATIVE NEGATIVE Urine RBC (Auto) NEGATIVE NEGATIVE Urine RBC NONE /HPF Urine WBC 0-2 /HPF Urine Squamous Epithelial Cells 5-10 /HPF Urine Crystals NONE /LPF Urine Bacteria NEGATIVE /HPF Urine Casts NONE /LPF Urine Mucus SMALL H /LPF Urine Culture Indicated NO Urine Opiates Screen NEGATIVE NEGATIVE Urine Oxycodone Screen NEGATIVE NEGATIVE Urine Methadone Screen NEGATIVE NEGATIVE Urine Propoxyphene Screen NEGATIVE NEGATIVE Urine Barbiturates Screen NEGATIVE NEGATIVE Ur Tricyclic Antidepressants Screen NEGATIVE NEGATIVE Urine Phencyclidine Screen NEGATIVE NEGATIVE Urine Amphetamines Screen NEGATIVE NEGATIVE Urine Methamphetamines Screen NEGATIVE NEGATIVE Urine Benzodiazepines Screen NEGATIVE NEGATIVE Urine Cocaine Screen NEGATIVE NEGATIVE Urine Cannabinoids Screen POSITIVE H NEGATIVE White Blood Count 18.4 H 4.3-11.0 10^3/uL Red Blood Count 4.82 4.35-5.85 10^6/uL Hemoglobin 14.9 11.5-16.0 G/DL Hematocrit 43 35-52 % Mean Corpuscular Volume 88 80-99 FL Mean Corpuscular Hemoglobin 31 25-34 PG Mean Corpuscular Hemoglobin Concent 35 32-36 G/DL Red Cell Distribution Width 12.6 10.0-14.5 % Platelet Count 301 130-400 10^3/uL Mean Platelet Volume 9.8 7.4-10.4 FL Immature Granulocyte % (Auto) 1 % Neutrophils (%) (Auto) 79 H 42-75 % Lymphocytes (%) (Auto) 14 12-44 % Monocytes (%) (Auto) 5 0-12 % Eosinophils (%) (Auto) 0 0-10 % Basophils (%) (Auto) 1 0-10 % Neutrophils # (Auto) 14.6 H 1.8-7.8 X 10^3 Lymphocytes # (Auto) 2.6 1.0-4.0 X 10^3 Monocytes # (Auto) 0.9 0.0-1.0 X 10^3 Eosinophils # (Auto) 0.1 0.0-0.3 10^3/uL Basophils # (Auto) 0.1 0.0-0.1 10^3/uL Immature Granulocyte # (Auto) 0.1 0.0-0.1 10^3/uL Neutrophils % (Manual) 68 % Lymphocytes % (Manual) 13 % Monocytes % (Manual) 5 % Eosinophils % (Manual) 0 % Basophils % (Manual) 0 % Band Neutrophils 13 % Atypical Lymphocytes 1 % Blood Morphology Comment NORMAL Sodium Level 140 135-145 MMOL/L Potassium Level 3.3 L 3.6-5.0 MMOL/L Chloride Level 105 98-107 MMOL/L Carbon Dioxide Level 18 L 21-32 MMOL/L Anion Gap 17 H 5-14 MMOL/L Blood Urea Nitrogen 12 7-18 MG/DL Creatinine 0.51 L 0.60-1.30 MG/DL Estimat Glomerular Filtration Rate > 60 BUN/Creatinine Ratio 24 Glucose Level 180 H 70-105 MG/DL Calcium Level 9.9 8.5-10.1 MG/DL Corrected Calcium 8.5-10.1 MG/DL Total Bilirubin 1.7 H 0.1-1.0 MG/DL Aspartate Amino Transf (AST/SGOT) 15 5-34 U/L Alanine Aminotransferase (ALT/SGPT) 12 0-55 U/L Alkaline Phosphatase 90 40-136 U/L Total Protein 7.1 6.4-8.2 GM/DL Albumin 4.8 H 3.2-4.5 GM/DL Lipase 31 8-78 U/L Serum Test, Qualitative NEGATIVE NEGATIVE My Orders Orders - ROVENSTINECIPRIANO DO Ed Iv/Invasive Line Start (06/25/20 12:08) Cbc With Automated Diff (06/25/20 12:08) Comprehensive Metabolic Panel (06/25/20 12:08) Lipase (06/25/20 12:08) Urinalysis (06/25/20 12:08) Ns Iv 1000 Ml (Sodium Chloride 0.9%) (06/25/20 12:15) Fentanyl Injection (Sublimaze Injection (06/25/20 12:15) Ondansetron Injection (Zofran Injectio (06/25/20 12:15) Manual Differential (06/25/20 12:10) Hcg,Qualitative Serum (06/25/20 12:48) Ct Abdomen/Pelvis W (06/25/20 12:48) Iohexol Injection (Omnipaque 350 Mg/Ml 1 (06/25/20 13:00) Received Contrast (Hold Metformin- Contr (06/25/20 13:00) Sodium Chloride Flush (Catheter Flush Sy (06/25/20 13:00) Ns (Ivpb) (Sodium Chloride 0.9% Ivpb Bag (06/25/20 13:00) Drug Screen Stat (Urine) (06/25/20 13:46) Dicyclomine Injection (Bentyl Injection) (06/25/20 13:49) Medications Given in ED Current Medications Medications Dose Ordered Sig/Peri Route Start Time Stop Time Status Last Admin Dose Admin Fentanyl Citrate 25 mcg Q1H PRN IVP 06/25/20 12:15 06/25/20 12:23 25 MCG Iohexol 100 ml ONCE ONCE IV 06/25/20 13:00 06/25/20 13:01 DC 06/25/20 13:32 100 ML Ondansetron HCl 4 mg ONCE ONCE IVP 06/25/20 12:15 06/25/20 12:16 DC 06/25/20 12:22 4 MG Sodium Chloride 10 ml NEEDED PRN IV 06/25/20 13:00 06/25/20 13:32 10 ML Sodium Chloride 100 ml ONCE ONCE IV 06/25/20 13:00 06/25/20 13:01 DC 06/25/20 13:32 100 ML Vital Signs/I&O 06/25/20 06/25/20 12:10 15:12 Temp 35.5 36.1 Pulse 79 51 Resp 18 24 B/P (MAP) 128/69 (88) 145/58 Pulse Ox 100 100 O2 Delivery Room Air Room Air Diagnostic Imaging Comments IMPRESSION: CT ABDOMEN AND PELVIS. 1. Mucosal enhancement of distal small bowel segments in the pelvis which may relate to an infectious or inflammatory enteritis. 2. Trace amount of free pelvic fluid. 3. Diffuse fatty infiltration of the liver. Dictated on workstation # [id number] Dict: 06/25/20 1335 Trans: 06/25/20 1345 CV [id number] Interpreted by: LEEROY RAM MD Electronically signed by: Departure Impression Primary Impression: Gastroenteritis and colitis, viral Additional Impression: Fatty infiltration of liver Disposition: 01 HOME, SELF-CARE Condition: Stable Departure-Patient Inst. Decision time for Depature: 13:51 Referrals: CURRY PALACIOS MD (PCP/Family) Primary Care Physician Patient Instructions: Viral Gastroenteritis Add. Discharge Instructions: see your doctor in 5 to 7 days if not improving, sooner if worse. Also see Dr Palacios about your incidental CT findings of a "fatty liver". She can give you further instruction regarding this condition. Scripts Hyoscyamine Sulfate (Levsin-Sl) 0.125 Mg Tab.subl 0.125 MG SL Q4H PRN for CRAMPS, #10 TAB 0 Refills Prov: CIPRIANO DESIR DO 06/25/20 Ondansetron (Ondansetron Odt) 4 Mg Tab.rapdis 4 MG PO TID for Nausea, #10 TAB Prov: ROVENSTINECIPRIANO DO 06/25/20 ROXIANGSTCIPRIANO SPARROW DO Jun 25, 2020 12:07
[2020-06-25] MEDS ORDERED: NS IV 1000 ML 1,000 ML IV SCH (12:15)
[2020-06-25] MEDS ORDERED: fentaNYL INJECTION 100 MCG/2 ML AMP IVP PRN (12:15)
[2020-06-25] MEDS ORDERED: ONDANSETRON 4 MG/2 ML (SDV) Z0FRAN IVP ONE (12:15)
[2020-06-25 12:22] LABS: BASOPHILS % (AUTO) 1 % (0-10); EOSINOPHILS % (AUTO) 0 % (0-10); HEMATOCRIT 43 % (35-52); HEMOGLOBIN 14.9 G/DL (11.5-16.0); LYMPHOCYTES % (AUTO) 14 % (12-44); MEAN CORPUSCULAR HEMOGLOBIN 31 PG (25-34); MEAN CORPUSCULAR HGB CONC 35 G/DL (32-36); MEAN CORPUSCULAR VOLUME 88 FL (80-99); MEAN PLATELET VOLUME 9.8 FL (7.4-10.4); MONOCYTES % (AUTO) 5 % (0-12); NEUTROPHILS # (AUTO) 14.6 X 10^3 (1.8-7.8); NEUTROPHILS % (AUTO) 79 % (42-75); PLATELET COUNT 301 10^3/uL (130-400); WHITE BLOOD COUNT 18.4 10^3/uL (4.3-11.0)
[2020-06-25 12:23] LABS: BASOPHILS # (AUTO) 0.1 10^3/uL (0.0-0.1); EOSINOPHILS # (AUTO) 0.1 10^3/uL (0.0-0.3); LYMPHOCYTES # (AUTO) 2.6 X 10^3 (1.0-4.0); MONOCYTES # (AUTO) 0.9 X 10^3 (0.0-1.0)
[2020-06-25 12:33] LABS: ATYPICAL LYMPHOCYTES 1 %; BAND NEUTROPHILS 13 %; BASOPHILS % (MANUAL) 0 %; EOSINOPHILS % (MANUAL) 0 %; LYMPHOCYTES % (MANUAL) 13 %; MONOCYTES % (MANUAL) 5 %; NEUTROPHILS % (MANUAL) 68 %; RBC MORPH NORMAL
[2020-06-25 12:40] LABS: BUN/CREATININE RATIO 24; CALCIUM 9.9 MG/DL (8.5-10.1); CARBON DIOXIDE 18 MMOL/L (21-32); CHLORIDE 105 MMOL/L (98-107); CREATININE SERUM 0.51 MG/DL (0.60-1.30); GFR ESTIMATED > 60; GLUCOSE 180 MG/DL (70-105); POTASSIUM 3.3 MMOL/L (3.6-5.0); SODIUM 140 MMOL/L (135-145)
[2020-06-25 12:41] LABS: ALANINE AMINOTRANSFERASE 12 U/L (0-55); ALBUMIN 4.8 GM/DL (3.2-4.5); ALKALINE PHOSPHATASE 90 U/L (40-136); BILIRUBIN,TOTAL 1.7 MG/DL (0.1-1.0); LIPASE 31 U/L (8-78); TOTAL PROTEIN 7.1 GM/DL (6.4-8.2)
[2020-06-25] MEDS ORDERED: HOLD METFORMIN - RECEIVED CONTRAST 20 ML VIAL IV SCH (13:00)
[2020-06-25] MEDS ORDERED: CATHETER FLUSH 10 ML SYR IV PRN (13:00)
[2020-06-25] MEDS ORDERED: IOHEXOL 350 MG/ML 100 ML (OMNIPAQUE 350) VIAL IV ONE (13:00)
[2020-06-25] MEDS ORDERED: NS 100 ML (IVPB) BAG IV ONE (13:00)
--- NOTE | 2020-06-25 13:45 | Diagnostic Imaging Report ---
PROCEDURE: CT abdomen and pelvis with contrast. TECHNIQUE: Multiple contiguous axial images were obtained through the abdomen and pelvis after administration of intravenous contrast. Auto Exposure Controls were utilized during the CT exam to meet ALARA standards for radiation dose reduction. All CT scans use one or more of the following dose optimizing techniques: automated exposure control, MA and/or KvP adjustment based on patient size and exam type or iterative reconstruction. DATE: October 26, 2019. COMPARISON: None. INDICATION: 24-year-old female, epigastric pain. FINDINGS: The visualized portions of the lung bases are clear. The heart is not enlarged. There is no identified pericardial effusion. There is diffuse fatty infiltration of the liver. There is no identified liver lesion. The main, right, and left portal veins are patent. The gallbladder is unremarkable. There is no intrahepatic or extrahepatic bile duct dilation. The main pancreatic duct is not abnormally dilated. Unremarkable appearance of the pancreatic parenchyma. The spleen is normal in size. The adrenal glands are unremarkable. Unremarkable appearance of the renal parenchyma. The urinary collecting systems are not distended. There is no identified renal or ureteral stone. Urinary bladder is unremarkable. There is an intrauterine contraceptive device in the midline uterus. There is mucosal enhancement of distal small bowel in the pelvis. The appendix is not well seen; however, there is no identified secondary findings to specifically suggest acute appendicitis. There is a trace amount of free pelvic fluid. There is no free intraperitoneal air. There is no identified focal drainable fluid collection. There is no identified abnormally enlarged lymph node in the abdomen or pelvis which meets CT size criteria for adenopathy. There is no acute bony abnormality. There is an L5 limbus vertebral body. IMPRESSION: CT ABDOMEN AND PELVIS. 1. Mucosal enhancement of distal small bowel segments in the pelvis which may relate to an infectious or inflammatory enteritis. 2. Trace amount of free pelvic fluid. 3. Diffuse fatty infiltration of the liver. Dictated by: Dictated on workstation # [id number]
[2020-06-25] MEDS ORDERED: DICYCLOMINE 10 MG/ML (BENTYL) 2 ML AMP IM STA (13:49)
[2020-06-25] MEDS ORDERED: ONDA4TAB11 PO (13:52)
[2020-06-25] MEDS ORDERED: HYOS0.1283 SL (13:52)
[2020-06-25 14:26] LABS: BACTERIA,URINE NEGATIVE /HPF; BILIRUBIN,URINE NEGATIVE (NEGATIVE); CLARITY,URINE CLEAR; COLOR,URINE YELLOW; GLUCOSE, URINE (UA) NEGATIVE (NEGATIVE); KETONES,URINE 2+ (NEGATIVE); LEUKOCYTE ESTERASE ,URINE NEGATIVE (NEGATIVE); NITRITE,URINE NEGATIVE (NEGATIVE); PROTEIN,URINE NEGATIVE (NEGATIVE); WBC,URINE 0-2 /HPF
[2020-06-25 14:38] LABS: AMPHETAMINE SCREEN, URINE NEGATIVE (NEGATIVE); BARBITURATE SCREEN URINE NEGATIVE (NEGATIVE); BENZODIAZEPINES SCREEN URINE NEGATIVE (NEGATIVE); CANNABINOID SCREEN, URINE POSITIVE (NEGATIVE); COCAINE SCREEN URINE NEGATIVE (NEGATIVE); METHADONE STAT NEGATIVE (NEGATIVE); METHAMPHETAMINE SCREEN URINE S NEGATIVE (NEGATIVE); OPIATE SCREEN URINE NEGATIVE (NEGATIVE); OXYCODONE STAT NEGATIVE (NEGATIVE); PROPOXYPHENE STAT NEGATIVE (NEGATIVE); TRICYCLIC ANTIDEPRESSANTS SCRE NEGATIVE (NEGATIVE)
--- NOTE | 2020-06-25 15:00 | NUR ---
Taty was contacted about pt about to be discharged. He understood and was going to head this way.
[2020-06-25 15:12] VITALS: BP 145/58
== END 2020-06-25 15:12 | disposition home or self-care (01) ==
LOC: EDUNIT# 11:57 → ER FS 11:58
DX: K52.9 Noninfective gastroenteritis and colitis, unspecified (principal); K76.0 Fatty (change of) liver, not elsewhere classified; Z82.49 Family history of ischemic heart disease and other diseases of the circulatory system
CPT/HCPCS: 36415; 74177; 80053; 80306; 81000; 83690; 84703; 85007; 85027

== ENCOUNTER → 2020-07-01 | Outpatient (CLI) | payer MEDICAID ==
[~2020-07-01] MED LIST changes: +HYOS0.1283 SL
[2020-07-01 11:39] LABS: BUN/CREATININE RATIO 10; CARBON DIOXIDE 26 MMOL/L (21-32); CHLORIDE 105 MMOL/L (98-107); CREATININE SERUM 0.58 MG/DL (0.60-1.30); GFR ESTIMATED > 60; POTASSIUM 3.8 MMOL/L (3.6-5.0); SODIUM 140 MMOL/L (135-145)
[2020-07-01 11:40] LABS: ALANINE AMINOTRANSFERASE 9 U/L (0-55); ALBUMIN 4.3 GM/DL (3.2-4.5); ALKALINE PHOSPHATASE 77 U/L (40-136); BILIRUBIN,TOTAL 0.7 MG/DL (0.1-1.0); CALCIUM 8.7 MG/DL (8.5-10.1); GLUCOSE 82 MG/DL (70-105); TOTAL PROTEIN 6.3 GM/DL (6.4-8.2)
[2020-07-01 11:41] LABS: BASOPHILS % (AUTO) 1 % (0-10); EOSINOPHILS % (AUTO) 3 % (0-10); HEMATOCRIT 40 % (35-52); HEMOGLOBIN 13.5 G/DL (11.5-16.0); LYMPHOCYTES # (AUTO) 1.7 X 10^3 (1.0-4.0); LYMPHOCYTES % (AUTO) 28 % (12-44); MEAN CORPUSCULAR HEMOGLOBIN 30 PG (25-34); MEAN CORPUSCULAR HGB CONC 34 G/DL (32-36); MEAN CORPUSCULAR VOLUME 90 FL (80-99); MEAN PLATELET VOLUME 9.8 FL (7.4-10.4); MONOCYTES % (AUTO) 8 % (0-12); NEUTROPHILS # (AUTO) 3.7 X 10^3 (1.8-7.8); NEUTROPHILS % (AUTO) 60 % (42-75); PLATELET COUNT 251 10^3/uL (130-400); WHITE BLOOD COUNT 6.1 10^3/uL (4.3-11.0)
[2020-07-01 11:42] LABS: EOSINOPHILS # (AUTO) 0.2 10^3/uL (0.0-0.3); MONOCYTES # (AUTO) 0.5 X 10^3 (0.0-1.0)
[2020-07-01 21:54] LABS: HEPATITIS C ANTIBODY C Non-Reactive (Non-Reactive)
== END ==
LOC: LAB FS 10:36
PROVIDERS: ATTEND Family Medicine
DX: A08.4 Viral intestinal infection, unspecified (principal); K76.0 Fatty (change of) liver, not elsewhere classified
CPT/HCPCS: 36415; 80053; 80074; 85025

== ENCOUNTER 2020-12-21 11:49 | Emergency (ER) | payer MEDICAID ==
[~2020-12-21] VITALS: Ht 157.4 cm; Wt 54.5 kg
[2020-12-21] MEDS ORDERED: ONDANSETRON 4 MG/2 ML (SDV) Z0FRAN IVP STA (12:08)
[2020-12-21] MEDS ORDERED: NS IV 1000 ML 1,000 ML IV STA ×2 (12:08→12:59)
[2020-12-21] MEDS ORDERED: PANTOPRAZOLE 40 MG (PROTONIX) VIAL IV STA (12:19)
--- NOTE | 2020-12-21 12:20 | ED GI ---
General Stated Complaint: ABD PAIN | VOMITING | BLUE/GREEN BILE Source of Information: Patient History of Present Illness Date Seen by Provider: Dec 21, 2020 Time Seen by Provider: 11:52 Initial Comments 24-year-old female presenting with nausea, vomiting, diarrhea since Monday. She states that she has epigastric pain from her bellybutton up. She has had watery diarrhea. She has decreased urine output. She feels dizzy and lightheaded with standing. She does have chills but no fever. She has had prior otherwise no abdominal surgeries. Her son is sick with similar symptoms at home. She also had nausea and vomiting last week and thought she might be but had negative test. She was scheduled to get an IUD out today but because of her symptoms they suggested she come to the emergency department instead. Allergies and Home Medications Allergies Coded Allergies: No Known Drug Allergies (Unverified , 11/13/18) Home Medications Docusate Sodium 100 Mg Capsule, 100 MG PO BID Prescribed by: DUC RANDOLPH on 03/18/19 075 Hyoscyamine Sulfate 0.125 Mg Tab.subl, 0.125 MG SL Q4H PRN for CRAMPS Prescribed by: CIPRIANO DESIR on 06/25/20 1352 Ibuprofen 800 Mg Tablet, 800 MG PO Q6HR Prescribed by: DUC RANDOLPH on 03/18/19756 Ondansetron 4 Mg Tab.rapdis, 4 MG PO TID Prescribed by: CIPRIANO AMOSSTANDREWS on 06/25/20 1352 Ondansetron 4 Mg Tab.rapdis, 4 MG PO Q6H PRN for NAUSEA/VOMITING Prescribed by: TOM PARKS on 12/21/20 1453 Oxycodone HCl/Acetaminophen 1 Each Tablet, 1 TAB PO Q4HR PRN for PAIN-MODERATE TO SEVERE Prescribed by: DUC RANDOLPH on 03/18/19 075 Pantoprazole Sodium 40 Mg Tablet.dr, 40 MG PO DAILY Prescribed by: TOM PARKS on 12/21/20 1453 Vit W-Ca,Fe,FA(<1 mg) 1 Each Tablet, 1 EACH PO DAILY, (Reported) Patient Home Medication List Home Medication List Reviewed: Yes Review of Systems Review of Systems Constitutional: chills; No diaphoresis, No fever; malaise EENTM: No Symptoms Reported Respiratory: No Symptoms Reported Cardiovascular: No Symptoms Reported Gastrointestinal: See HPI Genitourinary: Other (Decreased urine output) Musculoskeletal: no symptoms reported Skin: No rash Psychiatric/Neurological: Denies Headache; Weakness (Feels weak all over) Endocrine: No Symptoms Reported Hematologic/Lymphatic: No Symptoms Reported Past Lseaobh-Rfsmxt-Ryoybx Hx Past Med/Social Hx: Reviewed Nursing Past Med/Soc Hx Patient Social History 2nd Hand Smoke Exposure: No Recent Hopitalizations: No Seasonal Allergies Seasonal Allergies: No Past Medical History Surgeries: Yes Section, Tonsillectomy Respiratory: No Cardiac: No Neurological: No Sexually Transmitted Disease: No HIV/AIDS: No Genitourinary: No Gastrointestinal: No Musculoskeletal: No Endocrine: No HEENT: No Cancer: No Psychosocial: No Integumentary: No Blood Disorders: No Family Medical History Depression Hypertension 19 MOTHER Physical Exam Vital Signs Vital Signs - First Documented 12/21/20 12:03 Temp 37.2 Pulse 85 Resp 16 B/P (MAP) 150/86 (107) Pulse Ox 100 O2 Delivery Room Air Capillary Refill : Height/Weight/BMI Height: 5'4.00" Weight: 175lbs. 8.0oz. 79.581294ys; 21.00 BMI Method:Stated General Appearance: moderate distress, thin HEENT: No pharynx normal (Dry mucous membranes) Neck: non-tender, full range of motion, supple, normal inspection Respiratory: chest non-tender, lungs clear, normal breath sounds, no respiratory distress, no accessory muscle use Cardiovascular: normal peripheral pulses, regular rate, rhythm Gastrointestinal: soft, no pulsatile mass, abnormal bowel sounds (Hyperactive); No guarding, No rebound; tenderness (Epigastric) Rectal: deferred Extremities: normal range of motion, non-tender, normal capillary refill Back: no CVA tenderness Neurologic/Psychiatric: disability examiner II-XII nml as tested, alert, oriented x 3 Skin: normal color, warm/dry Images 1 - Epigastric pain to tenderness. No rebound or guarding Focused Exam Lactate Level 12/21/20 13:00: Lactic Acid Level 1.66 Lactic Acid Level Laboratory Tests Test 12/21/20 13:00 Lactic Acid Level 1.66 MMOL/L (0.50-2.00) Progress/Results/Core Measures Results/Orders Lab Results Laboratory Tests Test 12/21/20 12:03 12/21/20 12:23 12/21/20 13:00 Range/Units Urine Color YELLOW Urine Clarity CLOUDY Urine pH 6.0 5-9 Urine Specific [place] >=1.030 1.016-1.022 Urine Protein 2+ H NEGATIVE Urine Glucose (UA) NEGATIVE NEGATIVE Urine Ketones 2+ H NEGATIVE Urine Nitrite NEGATIVE NEGATIVE Urine Bilirubin 2+ H NEGATIVE Urine Urobilinogen 0.2 < = 1.0 MG/DL Urine Leukocyte Esterase NEGATIVE NEGATIVE Urine RBC (Auto) NEGATIVE NEGATIVE Urine RBC NONE /HPF Urine WBC 5-10 H /HPF Urine Squamous Epithelial Cells 10-25 H /HPF Urine Crystals NONE /LPF Urine Bacteria FEW H /HPF Urine Casts NONE /LPF Urine Mucus MODERATE H /LPF Urine Culture Indicated YES Urine Opiates Screen NEGATIVE NEGATIVE Urine Oxycodone Screen NEGATIVE NEGATIVE Urine Methadone Screen NEGATIVE NEGATIVE Urine Propoxyphene Screen NEGATIVE NEGATIVE Urine Barbiturates Screen NEGATIVE NEGATIVE Ur Tricyclic Antidepressants Screen NEGATIVE NEGATIVE Urine Phencyclidine Screen NEGATIVE NEGATIVE Urine Amphetamines Screen NEGATIVE NEGATIVE Urine Methamphetamines Screen NEGATIVE NEGATIVE Urine Benzodiazepines Screen NEGATIVE NEGATIVE Urine Cocaine Screen NEGATIVE NEGATIVE Urine Cannabinoids Screen POSITIVE H NEGATIVE White Blood Count 22.4 H 4.3-11.0 10^3/uL Red Blood Count 5.19 4.35-5.85 10^6/uL Hemoglobin 16.0 11.5-16.0 G/DL Hematocrit 45 35-52 % Mean Corpuscular Volume 86 80-99 FL Mean Corpuscular Hemoglobin 31 25-34 PG Mean Corpuscular Hemoglobin Concent 36 32-36 G/DL Red Cell Distribution Width 12.6 10.0-14.5 % Platelet Count 318 130-400 10^3/uL Mean Platelet Volume 9.9 7.4-10.4 FL Immature Granulocyte % (Auto) 1 % Neutrophils (%) (Auto) 90 H 42-75 % Lymphocytes (%) (Auto) 4 L 12-44 % Monocytes (%) (Auto) 6 0-12 % Eosinophils (%) (Auto) 0 0-10 % Basophils (%) (Auto) 0 0-10 % Neutrophils # (Auto) 20.2 H 1.8-7.8 X 10^3 Lymphocytes # (Auto) 0.9 L 1.0-4.0 X 10^3 Monocytes # (Auto) 1.3 H 0.0-1.0 X 10^3 Eosinophils # (Auto) 0.0 0.0-0.3 10^3/uL Basophils # (Auto) 0.0 0.0-0.1 10^3/uL Immature Granulocyte # (Auto) 0.1 0.0-0.1 10^3/uL Neutrophils % (Manual) 84 % Lymphocytes % (Manual) 4 % Monocytes % (Manual) 5 % Eosinophils % (Manual) 0 % Basophils % (Manual) 0 % Band Neutrophils 7 % Sodium Level 139 135-145 MMOL/L Potassium Level 3.6 3.6-5.0 MMOL/L Chloride Level 100 98-107 MMOL/L Carbon Dioxide Level 21 21-32 MMOL/L Anion Gap 18 H 5-14 MMOL/L Blood Urea Nitrogen 16 7-18 MG/DL Creatinine 0.65 0.60-1.30 MG/DL Estimat Glomerular Filtration Rate > 60 BUN/Creatinine Ratio 25 Glucose Level 114 H 70-105 MG/DL Calcium Level 10.0 8.5-10.1 MG/DL Corrected Calcium 8.5-10.1 MG/DL Total Bilirubin 2.9 H 0.1-1.0 MG/DL Aspartate Amino Transf (AST/SGOT) 15 5-34 U/L Alanine Aminotransferase (ALT/SGPT) 12 0-55 U/L Alkaline Phosphatase 97 40-136 U/L Total Protein 7.9 6.4-8.2 GM/DL Albumin 5.1 H 3.2-4.5 GM/DL Lipase 19 8-78 U/L Lactic Acid Level 1.66 0.50-2.00 MMOL/L My Orders Orders - TOM PARKS MD Comprehensive Metabolic Panel (12/21/20 12:08) Lipase (12/21/20 12:08) Ua Culture If Indicated (12/21/20 12:08) Ed Iv/Invasive Line Start (12/21/20 12:08) Cbc With Automated Diff (12/21/20 12:08) Drug Screen Stat (Urine) (12/21/20 12:08) Ns Iv 1000 Ml (Sodium Chloride 0.9%) (12/21/20 12:08) Ondansetron Injection (Zofran Injectio (12/21/20 12:08) Urine Bedside (12/21/20 12:18) Pantoprazole Injection (Protonix Injecti (12/21/20 12:19) Urine Culture (12/21/20 12:03) Manual Differential (12/21/20 12:23) Blood Culture (12/21/20 12:59) Lactic Acid Analyzer (12/21/20 12:59) Ns Iv 1000 Ml (Sodium Chloride 0.9%) (12/21/20 12:59) Ketorolac Injection (Toradol Injection) (12/21/20 12:59) Us Abdomen Limited [id number] (12/21/20 13:09) Vital Signs/I&O 12/21/20 12/21/20 12:03 13:12 Temp 37.2 37.2 Pulse 85 Resp 16 B/P (MAP) 150/86 (107) Pulse Ox 100 O2 Delivery Room Air Progress Progress Note #1: Progress Note Check basic labs to evaluate her electrolytes, blood count, urinalysis to look at her hydration. Give IV fluids for hydration, Zofran for nausea, Protonix for gastritis. Differential diagnosis includes gastroenteritis, colitis, diverticulitis, pyelonephritis, cholecystitis, appendicitis, food poisoning Progress Note #2: Progress Note Labs do show an elevated white blood cell count as well as concentrated urinalysis. She has no indication of UTI off of her urine. There is negative nitrites and leukocyte esterase. With the elevated white blood cell count this may be due to dehydration and stress of nausea vomiting and diarrhea but will add on blood cultures and a lactic acid. Also her chemistry panel came back showing elevated bilirubin so we will order an additional liter of normal saline for hydration and ultrasound of the abdomen and evaluate the liver and gallbladder. Progress Note #3: Progress Note Abdominal ultrasound did not show any signs of acute cholecystitis. She had no findings for gallstones or blockage. Patient was feeling better after treatment and was resting comfortably in the room. She was tolerating some oral intake without vomiting. Counseled on follow-up and return precautions. We will try Zofran ODT and Protonix. Counseled to try probiotics and help replace the good bacteria in her gut. Also she could try using Maalox or Mylanta to help with the burning sensation in her throat from throwing up so much. Diagnostic Imaging Diagonstic Imaging: Ultrasound Plain Films/CT/US/NM/MRI: abdomen Comments NAME: NIRAV CHAPPELL [facility] REC#: [id number] PT STATUS: REG ER : 1995 PHYSICIAN: TOM PARKS MD ADMIT DATE: 12/21/20/ER FS Draft Date of Exam:12/21/20 US ABDOMEN LIMITED [id number] PROCEDURE: US Abdomen, limited. TECHNIQUE: Multiple realtime grayscale images were obtained over the abdomen in various projections. INDICATION: Upper abdominal pain, nausea and vomiting. Elevated white blood cell count. COMPARISON: None available. FINDINGS: The liver is normal in size (16 cm in length) and echogenicity. There is no focal hepatic mass. The main portal vein is patent with antegrade flow. The gallbladder is distended without gallstones, wall thickening, or pericholecystic fluid. The common bile duct is obscured by overlying bowel gas. The visualized portions of the pancreas are normal. Portions of the head and tail are obscured by overlying bowel gas. The right kidney is normal in size. No hydronephrosis, shadowing calculi, or suspicious mass lesion. IMPRESSION: 1. Normal gallbladder. 2. No intrahepatic biliary duct dilatation. Common bile duct is obscured by overlying bowel gas. Dictated on workstation # [id number] Dict: 12/21/20 1423 Trans: 12/21/20 1426 CVB [id number] Interpreted by: CASH MCNAMARA MD Electronically signed by: Departure Impression Primary Impression: Nausea, vomiting and diarrhea Additional Impressions: Abdominal cramping Epigastric abdominal pain Disposition: 01 HOME, SELF-CARE Condition: Improved Departure-Patient Inst. Decision time for Depature: 14:49 Referrals: CURRY PALACIOS MD (PCP/Family) Primary Care Physician Patient Instructions: CLEAR LIQUID DIET ADULT/CHILD, Diarrhea, Adult ED, Full Liquid Diet, Gastritis ED, Nausea and Vomiting, Adult ED Add. Discharge Instructions: Use dissolving nausea medicine to help control upset stomach so you can drink and after 24 to 36 hours you could advance to bland and soft diet and if that is tolerated for 24 hours then advance to regular diet. Use the Protonix for stomach acid and you could take Maalox or Mylanta to help with acid indigestion if needed. Consider taking a probiotic to help with replacing the good bacteria your gut n eeds to help with digestion. Check back with clinic for continued symptoms and return or seek medical care for worsening pain, fever over 101 F, or continued uncontrolled vomiting/diarrhea despite dissolving zofran nausea medicine Scripts Pantoprazole Sodium (Pantoprazole Sodium) 40 Mg Tablet.dr 40 MG PO DAILY for 30 Days, #30 TAB 0 Refills Prov: TOM PARKS MD 12/21/20 Ondansetron (Ondansetron Odt) 4 Mg Tab.rapdis 4 MG PO Q6H PRN for NAUSEA/VOMITING for 3 Days, #12 TAB 0 Refills Prov: TOM PARKS MD 12/21/20 Work/School Note: Work Release Form Date Seen in the Emergency Department: Dec 21, 2020 Return to Work: Dec 23, 2020 Restrictions: No Restrictions TOM PARKS MD Dec 21, 2020 12:20
[2020-12-21 12:32] LABS: BILIRUBIN,URINE 2+ (NEGATIVE); CLARITY,URINE CLOUDY; COLOR,URINE YELLOW; GLUCOSE, URINE (UA) NEGATIVE (NEGATIVE); KETONES,URINE 2+ (NEGATIVE); LEUKOCYTE ESTERASE ,URINE NEGATIVE (NEGATIVE); NITRITE,URINE NEGATIVE (NEGATIVE); PROTEIN,URINE 2+ (NEGATIVE)
[2020-12-21 12:33] LABS: BACTERIA,URINE FEW /HPF
[2020-12-21 12:36] LABS: AMPHETAMINE SCREEN, URINE NEGATIVE (NEGATIVE); BARBITURATE SCREEN URINE NEGATIVE (NEGATIVE); BENZODIAZEPINES SCREEN URINE NEGATIVE (NEGATIVE); CANNABINOID SCREEN, URINE POSITIVE (NEGATIVE); COCAINE SCREEN URINE NEGATIVE (NEGATIVE); METHADONE STAT NEGATIVE (NEGATIVE); METHAMPHETAMINE SCREEN URINE S NEGATIVE (NEGATIVE); OPIATE SCREEN URINE NEGATIVE (NEGATIVE); OXYCODONE STAT NEGATIVE (NEGATIVE); PROPOXYPHENE STAT NEGATIVE (NEGATIVE); TRICYCLIC ANTIDEPRESSANTS SCRE NEGATIVE (NEGATIVE)
[2020-12-21 12:45] LABS: BASOPHILS % (AUTO) 0 % (0-10); EOSINOPHILS % (AUTO) 0 % (0-10); HEMATOCRIT 45 % (35-52); LYMPHOCYTES % (AUTO) 4 % (12-44); MEAN CORPUSCULAR HEMOGLOBIN 31 PG (25-34); MEAN CORPUSCULAR HGB CONC 36 G/DL (32-36); MEAN CORPUSCULAR VOLUME 86 FL (80-99); MEAN PLATELET VOLUME 9.9 FL (7.4-10.4); MONOCYTES % (AUTO) 6 % (0-12); NEUTROPHILS % (AUTO) 90 % (42-75); PLATELET COUNT 318 10^3/uL (130-400); WHITE BLOOD COUNT 22.4 10^3/uL (4.3-11.0)
[2020-12-21 12:46] LABS: LYMPHOCYTES # (AUTO) 0.9 X 10^3 (1.0-4.0); MONOCYTES # (AUTO) 1.3 X 10^3 (0.0-1.0); NEUTROPHILS # (AUTO) 20.2 X 10^3 (1.8-7.8)
[2020-12-21] MEDS ORDERED: KETOROLAC 30 MG/ML VIAL IVP STA (12:59)
[2020-12-21 13:00] LABS: BAND NEUTROPHILS 7 %; BASOPHILS % (MANUAL) 0 %; EOSINOPHILS % (MANUAL) 0 %; LYMPHOCYTES % (MANUAL) 4 %; MONOCYTES % (MANUAL) 5 %; NEUTROPHILS % (MANUAL) 84 %
[2020-12-21 13:01] LABS: CARBON DIOXIDE 21 MMOL/L (21-32); CHLORIDE 100 MMOL/L (98-107); POTASSIUM 3.6 MMOL/L (3.6-5.0); SODIUM 139 MMOL/L (135-145)
[2020-12-21 13:02] LABS: ALANINE AMINOTRANSFERASE 12 U/L (0-55); ALBUMIN 5.1 GM/DL (3.2-4.5); ALKALINE PHOSPHATASE 97 U/L (40-136); BILIRUBIN,TOTAL 2.9 MG/DL (0.1-1.0); BUN/CREATININE RATIO 25; CREATININE SERUM 0.65 MG/DL (0.60-1.30); GFR ESTIMATED > 60; GLUCOSE 114 MG/DL (70-105); LIPASE 19 U/L (8-78); TOTAL PROTEIN 7.9 GM/DL (6.4-8.2)
--- NOTE | 2020-12-21 14:27 | Diagnostic Imaging Report ---
PROCEDURE: US Abdomen, limited. TECHNIQUE: Multiple realtime grayscale images were obtained over the abdomen in various projections. INDICATION: Upper abdominal pain, nausea and vomiting. Elevated white blood cell count. COMPARISON: None available. FINDINGS: The liver is normal in size (16 cm in length) and echogenicity. There is no focal hepatic mass. The main portal vein is patent with antegrade flow. The gallbladder is distended without gallstones, wall thickening, or pericholecystic fluid. The common bile duct is obscured by overlying bowel gas. The visualized portions of the pancreas are normal. Portions of the head and tail are obscured by overlying bowel gas. The right kidney is normal in size. No hydronephrosis, shadowing calculi, or suspicious mass lesion. IMPRESSION: 1. Normal gallbladder. 2. No intrahepatic biliary duct dilatation. Common bile duct is obscured by overlying bowel gas. Dictated by: Dictated on workstation # [id number]
[2020-12-21] MEDS ORDERED: ONDA4TAB11 PO (14:53)
[2020-12-21] MEDS ORDERED: PANT40TA52 PO (14:53)
[2020-12-21 15:00] VITALS: BP 109/60
[2020-12-22] MEDS ORDERED: SUCR1TAB36 PO (15:04)
[2020-12-22] MEDS ORDERED: PROM25SU44 RC (15:04)
[2020-12-23] MEDS ORDERED: ONDA4TAB11 PO (11:17)
[2020-12-23] MEDS ORDERED: PANT40TA52 PO (11:17)
[2020-12-23] MEDS ORDERED: BUSP10TA95 PO (11:17)
[2020-12-23] MEDS ORDERED: SERT-414 PO (11:17)
[2020-12-23] MEDS ORDERED: MULT-1060 PO (11:17)
== END 2020-12-21 15:00 | disposition home or self-care (01) ==
LOC: EDUNIT# 11:49 → ER FS 11:50
DX: R11.2 Nausea with vomiting, unspecified (principal); R19.7 Diarrhea, unspecified; R10.13 Epigastric pain
CPT/HCPCS: 36415; 76705; 80053; 80306; 81000; 83605; 83690; 84703; 85007; 85027; 87040; 87088

== ENCOUNTER 2021-01-02 20:18 | Emergency (ER) | payer MEDICAID ==
[~2021-01-02] VITALS: Ht 162.5 cm; Wt 55.7 kg
[~2021-01-02 20:18] MED LIST changes: +BUSP10TA95 PO; +HYDR-3817 PO; +MULT-1060 PO; +PANT40TA52 PO; +PROM25SU44 RC; +SERT-414 PO; +SUCR1TAB36 PO
[2021-01-02 20:29] LABS: BASOPHILS # (AUTO) 0.1 10^3/uL (0.0-0.1); BASOPHILS % (AUTO) 1 % (0-10); EOSINOPHILS # (AUTO) 0.4 10^3/uL (0.0-0.3); EOSINOPHILS % (AUTO) 3 % (0-10); HEMATOCRIT 42 % (35-52); HEMOGLOBIN 14.2 G/DL (11.5-16.0); LYMPHOCYTES # (AUTO) 2.4 X 10^3 (1.0-4.0); LYMPHOCYTES % (AUTO) 21 % (12-44); MEAN CORPUSCULAR HEMOGLOBIN 30 PG (25-34); MEAN CORPUSCULAR HGB CONC 34 G/DL (32-36); MEAN CORPUSCULAR VOLUME 90 FL (80-99); MEAN PLATELET VOLUME 9.7 FL (7.4-10.4); MONOCYTES # (AUTO) 1.1 X 10^3 (0.0-1.0); MONOCYTES % (AUTO) 9 % (0-12); NEUTROPHILS # (AUTO) 7.7 X 10^3 (1.8-7.8); NEUTROPHILS % (AUTO) 66 % (42-75); PLATELET COUNT 303 10^3/uL (130-400); WHITE BLOOD COUNT 11.6 10^3/uL (4.3-11.0)
[2021-01-02] MEDS ORDERED: fentaNYL INJ 100 MCG/2 ML AMP IVP ONE (20:45)
[2021-01-02] MEDS ORDERED: NS IV 1000 ML 1,000 ML IV SCH (20:45)
[2021-01-02] MEDS ORDERED: ONDANSETRON 4 MG/2 ML (SDV) Z0FRAN IVP ONE (20:45)
[2021-01-02 20:47] LABS: ALANINE AMINOTRANSFERASE 17 U/L (0-55); ALBUMIN 4.3 GM/DL (3.2-4.5); ALKALINE PHOSPHATASE 70 U/L (40-136); BILIRUBIN,TOTAL 0.8 MG/DL (0.1-1.0); BUN/CREATININE RATIO 20; CALCIUM 9.5 MG/DL (8.5-10.1); CARBON DIOXIDE 26 MMOL/L (21-32); CHLORIDE 104 MMOL/L (98-107); CREATININE SERUM 0.55 MG/DL (0.60-1.30); GFR ESTIMATED > 60; GLUCOSE 79 MG/DL (70-105); LIPASE 46 U/L (8-78); POTASSIUM 4.3 MMOL/L (3.6-5.0); SODIUM 139 MMOL/L (135-145)
--- NOTE | 2021-01-02 20:48 | Diagnostic Imaging Report ---
INDICATION: R flank and RLQ pain- post dayron 2 wks ago COMPARISON: None. EXAMINATION: Supine and upright views of the abdomen were obtained. FINDINGS: Nondistended bowel gas pattern. Moderate air and stool are seen scattered throughout the colon. Indwelling entering contraceptive device is also noted. No abnormal air fluid level or free intraperitoneal air is seen. No abnormal extraosseous calcification is seen. Bony and soft tissue structures are within normal limits. No organomegaly is identified. Accompanying upright chest shows normal heart size and pulmonary vascularity. The lungs are well aerated and clear. The mediastinum is normal in appearance. IMPRESSION: 1. No bowel obstruction or free air. 2. Normal chest. No pneumonia or pulmonary edema. 3. Moderate colonic air and stool. Please correlate for constipation. Dictated by: Dictated on workstation # [id number]
--- NOTE | 2021-01-02 20:51 | ED Abdominal Pain ---
General Chief Complaint: Abdominal/GI Problems Stated Complaint: ABDOMINAL PAIN Nursing Triage Note: Patient states that she got out of the hospital 8 days ago post dayron. Patient also states that she was in hospital for approximately 7 days. Patient has 3 lap sites on the abdomen, all look intact and clean. Patient is complaining of pain on the right upper lap site that wraps around the ribs. Patient states this is a new pain that she hasn't had before. 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 Sepsis Screen: No Definite Risk Source of Information: Patient History of Present Illness Date Seen by Provider: January 02, 2021 Time Seen by Provider: 20:25 Initial Comments 25-year-old female presents with right lower abdominal pain for the past 2 hours. Patient HPI significant for cholecystectomy a little over [address] [facility]. Patient was in the hospital for about 1 week prior to her cholecystectomy and then discharged 1 to 2 days afterward. She states she was feeling much better and has been doing fine taking occasional hydrocodone for abdominal pain she has been eating and drinking without difficulty, however her bowel movements have been slowed and her last bowel movement was yesterday. She is still passing gas. She denies fever chills, cough or shortness of air. Allergies and Home Medications Allergies Coded Allergies: No Known Drug Allergies (Unverified , 11/13/18) Home Medications Bisacodyl 5 Mg Tablet.dr, 5 MG PO DAILY PRN PRN for CONSTIPATION-1ST LINE Prescribed by: CIPRIANO DESIR on 01/02/212108 Buspirone HCl 10 Mg Tablet, 10 MG PO HS, (Reported) Hydrocodone/Acetaminophen 1 Each Tablet, 1 EACH PO Q4H Prescribed by: WILDER BARBA on 12/24/20 1444 Hyoscyamine Sulfate 0.125 Mg Tab.subl, 0.125 MG SL Q4H PRN for CRAMPS Prescribed by: CIPRIANO DESIR on 01/02/212113 Magnesium Citrate 296 Ml Solution, 296 ML PO ONCE PRN for CONSTIPATION-3RD LINE Prescribed by: CIPRIANO DESIR on 01/02/212108 Multivitamin/Iron/Folic Acid 1 Each Tablet, 1 EACH PO HS, (Reported) Ondansetron 4 Mg Tab.rapdis, 4 MG PO Q6H PRN for NAUSEA/VOMITING-1ST LINE, (Reported) Pantoprazole Sodium 40 Mg Tablet.dr, 40 MG PO DAILY, (Reported) Sertraline HCl 100 Mg Tablet, 100 MG PO HS, (Reported) Patient Home Medication List Home Medication List Reviewed: Yes Review of Systems Review of Systems Constitutional: see HPI; No fever, No malaise, No weakness Respiratory: Denies Cough, Denies Shortness of Air Cardiovascular: Denies Chest Pain, Denies Palpitations, Denies Syncope Gastrointestinal: See HPI; Denies Abdomen Distended; Abdominal Pain; Denies Constipated, Denies Diarrhea; Nausea; Denies Poor Appetite, Denies Poor Fluid Intake, Denies Rectal Bleeding, Denies Vomiting Genitourinary: Denies Burning, Denies Discharge, Denies Frequency, Denies Flank Pain Musculoskeletal: No back pain, No joint pain Skin: No change in color Past Qcgpljn-Wrgmwr-Qdnlcm Hx Past Med/Social Hx: Reviewed Nursing Past Med/Soc Hx Patient Social History Alcohol Use: Denies Use Drug of Choice: STATES SMOKES POT DAILY Smoking Status: Former Smoker Type Used: Cigarettes 2nd Hand Smoke Exposure: No Recent Infectious Disease Expo: No Recent Hopitalizations: No Seasonal Allergies Seasonal Allergies: No Past Medical History Surgeries: Yes (C/S 2018) Section, Gallbladder, Tonsillectomy Respiratory: No Cardiac: No Neurological: No Sexually Transmitted Disease: No HIV/AIDS: No Genitourinary: No Gastrointestinal: No Musculoskeletal: No Endocrine: No HEENT: No Cancer: No Psychosocial: No Integumentary: No Blood Disorders: No Family Medical History Depression Hypertension 19 MOTHER noncontributory Physical Exam Vital Signs Vital Signs - First Documented 01/02/21 20:18 Temp 36.5 Pulse 105 Resp 20 B/P (MAP) 151/88 (109) Pulse Ox 100 O2 Delivery Room Air Capillary Refill : Less Than 3 Seconds Height/Weight/BMI Height: 5'4.00" Weight: 175lbs. 8.0oz. 79.198379vs; 21.00 BMI Method:Stated General Appearance: WD/WN, no apparent distress Respiratory: chest non-tender, lungs clear, normal breath sounds Cardiovascular: regular rate, rhythm, no edema, no JVD Gastrointestinal: normal bowel sounds, soft; No guarding, No rebound; tenderness (R upper, R flank and RLQ); No hernia, No mass, No hepatomegaly Back: normal inspection; No CVA tenderness (R), No CVA tenderness (L) Neurologic/Psychiatric: alert, normal mood/affect, oriented x 3 Skin: normal color, warm/dry Progress/Results/Core Measures Results/Orders Lab Results Laboratory Tests Test 01/02/21 20:23 01/02/21 20:51 Range/Units White Blood Count 11.6 H 4.3-11.0 10^3/uL Red Blood Count 4.69 4.35-5.85 10^6/uL Hemoglobin 14.2 11.5-16.0 G/DL Hematocrit 42 35-52 % Mean Corpuscular Volume 90 80-99 FL Mean Corpuscular Hemoglobin 30 25-34 PG Mean Corpuscular Hemoglobin Concent 34 32-36 G/DL Red Cell Distribution Width 13.1 10.0-14.5 % Platelet Count 303 130-400 10^3/uL Mean Platelet Volume 9.7 7.4-10.4 FL Immature Granulocyte % (Auto) 0 % Neutrophils (%) (Auto) 66 42-75 % Lymphocytes (%) (Auto) 21 12-44 % Monocytes (%) (Auto) 9 0-12 % Eosinophils (%) (Auto) 3 0-10 % Basophils (%) (Auto) 1 0-10 % Neutrophils # (Auto) 7.7 1.8-7.8 X 10^3 Lymphocytes # (Auto) 2.4 1.0-4.0 X 10^3 Monocytes # (Auto) 1.1 H 0.0-1.0 X 10^3 Eosinophils # (Auto) 0.4 H 0.0-0.3 10^3/uL Basophils # (Auto) 0.1 0.0-0.1 10^3/uL Immature Granulocyte # (Auto) 0.0 0.0-0.1 10^3/uL Sodium Level 139 135-145 MMOL/L Potassium Level 4.3 3.6-5.0 MMOL/L Chloride Level 104 98-107 MMOL/L Carbon Dioxide Level 26 21-32 MMOL/L Anion Gap 9 5-14 MMOL/L Blood Urea Nitrogen 11 7-18 MG/DL Creatinine 0.55 L 0.60-1.30 MG/DL Estimat Glomerular Filtration Rate > 60 BUN/Creatinine Ratio 20 Glucose Level 79 70-105 MG/DL Calcium Level 9.5 8.5-10.1 MG/DL Corrected Calcium 9.3 8.5-10.1 MG/DL Total Bilirubin 0.8 0.1-1.0 MG/DL Aspartate Amino Transf (AST/SGOT) 15 5-34 U/L Alanine Aminotransferase (ALT/SGPT) 17 0-55 U/L Alkaline Phosphatase 70 40-136 U/L Total Protein 7.0 6.4-8.2 GM/DL Albumin 4.3 3.2-4.5 GM/DL Lipase 46 8-78 U/L Urine Color YELLOW Urine Clarity SLIGHTLY CLOUDY Urine pH 6.0 5-9 Urine Specific [place] 1.025 H 1.016-1.022 Urine Protein NEGATIVE NEGATIVE Urine Glucose (UA) NEGATIVE NEGATIVE Urine Ketones NEGATIVE NEGATIVE Urine Nitrite NEGATIVE NEGATIVE Urine Bilirubin NEGATIVE NEGATIVE Urine Urobilinogen 0.2 < = 1.0 MG/DL Urine Leukocyte Esterase NEGATIVE NEGATIVE Urine RBC (Auto) NEGATIVE NEGATIVE Urine RBC 0-2 /HPF Urine WBC NONE /HPF Urine Squamous Epithelial Cells 5-10 /HPF Urine Crystals NONE /LPF Urine Bacteria FEW H /HPF Urine Casts NONE /LPF Urine Mucus LARGE H /LPF Urine Other SPERM PRESENT /HPF Urine Culture Indicated NO My Orders Orders - CIPRIANO DESIR DO Ed Iv/Invasive Line Start (01/02/21 20:21) Acute Abd Series (01/02/21 20:21) Urinalysis (01/02/21 20:21) Cbc With Automated Diff (01/02/21 20:21) Comprehensive Metabolic Panel (01/02/21 20:21) Lipase (01/02/21 20:21) Fentanyl Inj (Sublimaze Injection) (01/02/21 20:45) Ondansetron Injection (Zofran Injectio (01/02/21 20:45) Ns Iv 1000 Ml (Sodium Chloride 0.9%) (01/02/21 20:45) Medications Given in ED Current Medications Medications Dose Ordered Sig/Peri Route Start Time Stop Time Status Last Admin Dose Admin Fentanyl Citrate 50 mcg ONCE ONCE IVP 01/02/21 20:45 01/02/21 20:46 DC 01/02/21 20:48 50 MCG Ondansetron HCl 4 mg ONCE ONCE IVP 01/02/21 20:45 01/02/21 20:46 DC 01/02/21 20:49 4 MG Vital Signs/I&O 01/02/21 20:18 Temp 36.5 Pulse 105 Resp 20 B/P (MAP) 151/88 (109) Pulse Ox 100 O2 Delivery Room Air Blood Pressure Mean: 109 Diagnostic Imaging Diagonstic Imaging: Xray Plain Films/CT/US/NM/MRI: abdomen Comments no acute process, no free air, no obstruction. Moderate colonic stool Departure Impression Primary Impression: Abdominal pain Qualified Codes: R10.9 - Unspecified abdominal pain Disposition: HOME, SELF-CARE Condition: Improved Departure-Patient Inst. Decision time for Depature: 20:56 Referrals: CURRY PALACIOS MD (PCP/Family) Primary Care Physician Patient Instructions: Constipation, Adult (DC) Add. Discharge Instructions: See Dr Palacios and Dr Barba as planned for follow up this week. Try some Milk of Magnesia daily until your bowels are moving normally again. Next try the Dulcolax suppository if needed. Next (assuming the previous did not help), drink a bottle of magnesium citrate mixed with a can of sprite. If that fails, give yourself an enema. If that fails return to the ER for generalized nausea and stomach pain, try some CAPSAICIAN cream on the skin around your belly button. This can be found at your local drug store in the muscle aches and pain section. All discharge instructions reviewed with patient and/or family. Voiced understanding. Scripts Hyoscyamine Sulfate (Levsin-Sl) 0.125 Mg Tab.subl 0.125 MG SL Q4H PRN for CRAMPS, #15 TAB 2 Refills Prov: DANDRESTCIPRIANO SPARROW L DO 01/02/21 Magnesium Citrate (Magnesium Citrate) 296 Ml Solution 296 ML PO ONCE PRN for CONSTIPATION-3RD LINE, #1 EA Prov: IRISVENSTINECIPRIANO L DO 01/02/21 Bisacodyl (Dulcolax) 5 Mg Tablet. 5 MG PO DAILY PRN PRN for CONSTIPATION-1ST LINE, #10 TAB Prov: ROVENSTINECIPRIANO L DO 01/02/21 ROVENSTINECIPRIANO L DO January 02, 2021 20:51
[2021-01-02 21:01] LABS: CLARITY,URINE SLIGHTLY CLOUDY; COLOR,URINE YELLOW
[2021-01-02 21:02] LABS: BACTERIA,URINE FEW /HPF; BILIRUBIN,URINE NEGATIVE (NEGATIVE); GLUCOSE, URINE (UA) NEGATIVE (NEGATIVE); KETONES,URINE NEGATIVE (NEGATIVE); LEUKOCYTE ESTERASE ,URINE NEGATIVE (NEGATIVE); NITRITE,URINE NEGATIVE (NEGATIVE); PROTEIN,URINE NEGATIVE (NEGATIVE); RBC,URINE 0-2 /HPF; URINE OTHER SPERM PRESENT /HPF
[2021-01-02] MEDS ORDERED: MAGN296S71 PO (21:09)
[2021-01-02] MEDS ORDERED: BISA-65 PO (21:09)
[2021-01-02] MEDS ORDERED: HYOS0.1283 SL (21:14)
[2021-01-02 21:34] VITALS: BP 114/72
== END 2021-01-02 21:34 | disposition home or self-care (01) ==
LOC: EDUNIT# 20:18 → ER FS 20:21
DX: R10.31 Right lower quadrant pain (principal); R10.11 Right upper quadrant pain; Z87.891 Personal history of nicotine dependence; Z90.49 Acquired absence of other specified parts of digestive tract
CPT/HCPCS: 36415; 74022; 80053; 81000; 83690; 85025

== ENCOUNTER 2021-09-27 19:33 | Emergency (ER) | payer MEDICAID ==
[~2021-09-27 19:33] MED LIST changes: -PROM25TA14 PO
[2021-09-27] MEDS ORDERED: NS IV 1000 ML 1,000 ML IV SCH (19:45)
[2021-09-27] MEDS ORDERED: ONDANSETRON 4 MG/2 ML (SDV) Z0FRAN IV STA (19:45)
--- NOTE | 2021-09-27 19:54 | ED General ---
General Stated Complaint: VOMITTING,ABD CRAMPS Source of Information: Patient History of Present Illness Date Seen by Provider: Sep 27, 2021 Time Seen by Provider: 19:37 Initial Comments 25 yo female presenting with complaint of being 7 weeks EGA and with nausea, vomiting, diarrhea that started today. She has had abdominal cramping and increased nausea/vomiting since having visit with Dr Palacios and getting blood drawn this afternoon. She denies pain with urination. No fever, chills, cough, sore throat, headache, chest pain. She has diffuse abdominal cramping, feels light headed. She reports that she is not able to keep even water down so she came to the ED because she feels like she needs IV fluids. She tried taking old Zofran she had at home left over from her first but states she immediately started vomiting after taking it. Then when she went to go to work at [employer] they told her to go to the ED and not to come to work until she figures out what is going on for her. Timing/Duration: 12 Hours Severity: Severe Associated Systoms: No Chest Pain, No Cough, No Diaphoresis, No Fever/Chills, No Headaches, No Loss of Appetite, No Malaise; Nausea/Vomiting; No Rash, No Sei zure, No Shortness of Air, No Syncope, No Weakness Allergies and Home Medications Allergies Coded Allergies: No Known Drug Allergies (Unverified , 11/13/18) Patient Home Medication List Home Medication List Reviewed: Yes Bisacodyl (Dulcolax) 5 Mg Tablet.dr, 5 MG PO DAILY PRN PRN for CONSTIPATION-1ST LINE Prescribed by: CIPRIANO DESIR on 01/02/212108 Buspirone HCl (Buspirone HCl) 10 Mg Tablet, 10 MG PO HS, (Reported) Entered as Reported by: MICHAELA SANCHES on 12/23/20 1117 Hydrocodone/Acetaminophen (Hydrocodone-Acetamin 7.5-325) 1 Each Tablet, 1 EACH PO Q4H Prescribed by: WILDER TOURE on 12/24/20 1444 Hyoscyamine Sulfate (Levsin-Sl) 0.125 Mg Tab.subl, 0.125 MG SL Q4H PRN for CR AMPS Prescribed by: CIPRIANO DESIR on 01/02/212113 Magnesium Citrate (Magnesium Citrate) 296 Ml Solution, 296 ML PO ONCE PRN for CONSTIPATION-3RD LINE Prescribed by: CIPRIANO DESIR on 01/02/212108 Multivitamin/Iron/Folic Acid (Centrum Women Tablet) 1 Each Tablet, 1 EACH PO HS, (Reported) Entered as Reported by: MICHAELA SANCHES on 12/23/201116 Ondansetron (Ondansetron Odt) 4 Mg Tab.rapdis, 4 MG PO Q6H PRN for NAUSEA/VOMITING-1ST LINE, (Reported) Entered as Reported by: MICHAELA SANCHES on 12/23/201116 Ondansetron (Ondansetron Odt) 4 Mg Tab.rapdis, 4 MG PO Q6H PRN for NAUSEA/VOMITING Prescribed by: TOM PARKS on 09/27/212113 Pantoprazole Sodium (Pantoprazole Sodium) 40 Mg Tablet.dr, 40 MG PO DAILY, (Reported) Entered as Reported by: MICHAELA SANCHES on 12/23/201116 Sertraline HCl (Sertraline HCl) 100 Mg Tablet, 100 MG PO HS, (Reported) Entered as Reported by: MICHAELA SANCHES on 12/23/201116 Review of Systems Review of Systems Constitutional: see HPI, dizziness EENTM: no symptoms reported Cardiovascular: no symptoms reported Gastrointestinal: see HPI Genitourinary: decreased output : Yes (reports she found out tonight that she is 7 weeks EGA) Musculoskeletal: no symptoms reported Skin: no symptoms reported Psychiatric/Neurological: Anxiety Past Zldbltm-Jqrrfj-Uovwwy Hx Patient Social History Tobacco Use?: No Smoking Status: Former Smoker Seasonal Allergies Seasonal Allergies: No Past Medical History Surgeries: Yes (C/S 2018) Section, Gallbladder, Tonsillectomy Respiratory: No Cardiac: No Neurological: No Sexually Transmitted Disease: No HIV/AIDS: No Genitourinary: No Gastrointestinal: No Musculoskeletal: No Endocrine: No HEENT: No Cancer: No Psychosocial: No Integumentary: No Blood Disorders: No Family Medical History Depression Hypertension 19 MOTHER noncontributory Physical Exam Vital Signs Vital Signs - First Documented 09/27/21 19:37 Temp 37.0 Pulse 80 Resp 16 B/P (MAP) 131/72 (91) Pulse Ox 100 O2 Delivery Room Air Capillary Refill : Height, Weight, BMI Height: 5'4.00" Weight: 175lbs. 8.0oz. [id number]; 21.00 BMI Method:Stated General Appearance: No Apparent Distress, Anxious HEENT: PERRL/EOMI, Pharynx Normal, Moist Mucous Membranes Neck: Full Range of Motion, Non Tender, Supple Respiratory: Chest Non Tender, Lungs Clear, Normal Breath Sounds, No Accessory Muscle Use, No Respiratory Distress Cardiovascular: Regular Rate, Rhythm, Normal Peripheral Pulses Gastrointestinal: No Pulsatile Mass, Non Tender, Soft, Abnormal Bowel Sounds (hyperactive) Rectal: Deferred Extremity: Normal Capillary Refill, Normal Inspection, No Pedal Edema Neurologic/Psychiatric: Alert, Oriented x3 Skin: Normal Color, Warm/Dry; No Rash Progress/Results/Core Measures Suspected Sepsis SIRS Temperature: Pulse: Respiratory Rate: Laboratory Tests 09/27/21 19:57: White Blood Count 12.6H Blood Pressure / Mean: Laboratory Tests 09/27/21 19:57: Creatinine 0.46L, Platelet Count 289, Total Bilirubin 2.5H Results/Orders Lab Results Laboratory Tests Test 09/27/21 19:56 09/27/21 19:57 09/27/21 19:59 Range/Units Urine Color YELLOW Urine Clarity SL CLOUDY Urine pH 7.0 5-9 Urine Specific [place] 1.025 H 1.016-1.022 Urine Protein NEGATIVE NEGATIVE Urine Glucose (UA) NEGATIVE NEGATIVE Urine Ketones 3+ H NEGATIVE Urine Nitrite NEGATIVE NEGATIVE Urine Bilirubin NEGATIVE NEGATIVE Urine Urobilinogen 1.0 < = 1.0 MG/DL Urine Leukocyte Esterase NEGATIVE NEGATIVE Urine RBC (Auto) NEGATIVE NEGATIVE Urine RBC RARE /HPF Urine WBC 0-2 /HPF Urine Squamous Epithelial Cells 5-10 /HPF Urine Crystals NONE /LPF Urine Bacteria FEW H /HPF Urine Casts NONE /LPF Urine Mucus LARGE H /LPF Urine Other OCC CLUE CELLS /HPF Urine Culture Indicated NO White Blood Count 12.6 H 4.3-11.0 10^3/uL Red Blood Count 4.59 3.80-5.11 10^6/uL Hemoglobin 14.0 11.5-16.0 g/dL Hematocrit 42 35-52 % Mean Corpuscular Volume 90 80-99 fL Mean Corpuscular Hemoglobin 31 25-34 pg Mean Corpuscular Hemoglobin Concent 34 32-36 g/dL Red Cell Distribution Width 13.2 10.0-14.5 % Platelet Count 289 130-400 10^3/uL Mean Platelet Volume 9.8 9.0-12.2 fL Immature Granulocyte % (Auto) 0 % Neutrophils (%) (Auto) 79 H 42-75 % Lymphocytes (%) (Auto) 14 12-44 % Monocytes (%) (Auto) 6 0-12 % Eosinophils (%) (Auto) 1 0-10 % Basophils (%) (Auto) 0 0-10 % Neutrophils # (Auto) 9.9 H 1.8-7.8 10^3/uL Lymphocytes # (Auto) 1.8 1.0-4.0 10^3/uL Monocytes # (Auto) 0.7 0.0-1.0 10^3/uL Eosinophils # (Auto) 0.1 0.0-0.3 10^3/uL Basophils # (Auto) 0.1 0.0-0.1 10^3/uL Immature Granulocyte # (Auto) 0.1 0.0-0.1 10^3/uL Sodium Level 137 135-145 MMOL/L Potassium Level 3.8 3.6-5.0 MMOL/L Chloride Level 100 98-107 MMOL/L Carbon Dioxide Level 24 21-32 MMOL/L Anion Gap 13 5-14 MMOL/L Blood Urea Nitrogen 7 7-18 MG/DL Creatinine 0.46 L 0.60-1.30 MG/DL Estimat Glomerular Filtration Rate 135 BUN/Creatinine Ratio 15 Glucose Level 87 70-105 MG/DL Calcium Level 9.5 8.5-10.1 MG/DL Corrected Calcium 8.5-10.1 MG/DL Total Bilirubin 2.5 H 0.1-1.0 MG/DL Aspartate Amino Transf (AST/SGOT) 13 5-34 U/L Alanine Aminotransferase (ALT/SGPT) 12 0-55 U/L Alkaline Phosphatase 73 40-136 U/L C-Reactive Protein < 0.30 <0.50 MG/DL Total Protein 7.4 6.4-8.2 GM/DL Albumin 4.7 H 3.2-4.5 GM/DL Influenza Type A Antigen NEGATIVE NEGATIVE Influenza Type B Antigen NEGATIVE NEGATIVE My Orders Orders - TOM PARKS MD Monitor-Rhythm Ecg Trace Only (09/27/21 19:45) Ed Iv/Invasive Line Start (09/27/21 19:45) Cbc With Automated Diff (09/27/21 19:45) Comprehensive Metabolic Panel (09/27/21 19:45) Crp Fs (09/27/21 19:45) Ns Iv 1000 Ml (Sodium Chloride 0.9%) (09/27/21 19:45) Ondansetron Injection (Zofran Injectio (09/27/21 19:45) Ua Culture If Indicated (09/27/21 19:45) Covid 19 Inhouse Test (09/27/21 19:45) Influenza A & B Antigens (09/27/21 19:45) Isolation Central Supply Req (09/27/21 19:45) Rx-Ondansetron Po (Rx-Zofran Po) (09/27/21 21:15) Medications Given in ED Current Medications Medications Dose Ordered Sig/Peri Route Start Time Stop Time Status Last Admin Dose Admin Ondansetron HCl 4 mg Q6H PRN PO 09/27/21 21:15 09/27/21 21:26 DC 09/27/21 21:25 4 MG Vital Signs/I&O 09/27/21 09/27/21 19:37 21:25 Temp 37.0 37.0 Pulse 80 80 Resp 16 16 B/P (MAP) 131/72 (91) 131/72 Pulse Ox 100 100 O2 Delivery Room Air Room Air 09/28/21 00:00 Intake Total 1000 ml Balance 1000 ml Capillary Refill : Progress Note #1: Progress Note Patient has normal vital signs and no tachycardia or hypotension. With the n/v/d she could have Covid and she reports having exposure to coworkers with Covid at work. Will check basic labs, as well as Covid, Influenza, UA. Try IVF 1 L NS for hydration, Zofran 4 mg IV for nausea/vomiting. Differential diagnosis includes Nausea/Vomiting of , Covid, Viral Gastroenteritis, UTI, anxiety Progress Note #2: Progress Note Labs shows mild elevation of her white blood cell count to 12.6. Her urine was slightly concentrated with an elevated specific gravity of 1.025 and ketones were present. She had no acute significant abnormality on her electrolytes. Patient reports improved symptoms and feeling better after treatment here in the ED. Will discharge with Zofran ODT and prescription sent to the pharmacy to continue. Counseled to follow-up with Dr. Palacios and to quarantine until she has results of the Covid swab from [facility]. Departure Impression Primary Impression: Nausea, vomiting and diarrhea Additional Impressions: , incidental Dehydration Person under investigation for COVID-19 Disposition: 01 HOME, SELF-CARE Condition: Improved Departure-Patient Inst. Decision time for Depature: 21:12 Referrals: CURRY PALACIOS MD (PCP/Family) Primary Care Physician Patient Instructions: COVID-19 Tests, COVID-19 and ED, Dehydration, Adult ED, Diarrhea, Adult ED, Medications and , Nausea and Vomiting of , Nausea and Vomiting, Adult ED, Taking Afkh-pkl-Zfvzmsb Medicines During Add. Discharge Instructions: Use the dissolving nausea tablets to help keep your stomach settled so you can drink and stay hydrated. Try to keep sipping on fluids and drinking electrolyte drinks help with your hydration. Follow-up with Dr. Palacios for continued concerns. You could also call her for continued help and medications for nausea while . Quarantine and isolate until you know the results of your Covid test and your symptoms are improved. If your test comes back positive you would need to quarantine for 10 days. If it is negative and your symptoms are more related to the and a possible viral infection then you could return to work in 2 to 3 days. Scripts Ondansetron (Ondansetron Odt) 4 Mg Tab.rapdis 4 MG PO Q6H PRN for NAUSEA/VOMITING for 5 Days, #20 TAB 0 Refills Prov: TOM PARKS MD 09/27/21 Work/School Note: Work Release Form Date Seen in the Emergency Department: Sep 27, 2021 Return to Work: Sep 30, 2021 Restrictions: Return-No Vomiting(24hrs) Other Restrictions Listed Below: Return Sep 30 if Covid Neg. If Positive then return Oct 06. TOM PARKS MD Sep 27, 2021 19:54
[2021-09-27 20:16] LABS: BASOPHILS # (AUTO) 0.1 10^3/uL (0.0-0.1); BASOPHILS % (AUTO) 0 % (0-10); EOSINOPHILS # (AUTO) 0.1 10^3/uL (0.0-0.3); EOSINOPHILS % (AUTO) 1 % (0-10); HEMATOCRIT 42 % (35-52); LYMPHOCYTES # (AUTO) 1.8 10^3/uL (1.0-4.0); LYMPHOCYTES % (AUTO) 14 % (12-44); MEAN CORPUSCULAR HEMOGLOBIN 31 pg (25-34); MEAN CORPUSCULAR HGB CONC 34 g/dL (32-36); MEAN CORPUSCULAR VOLUME 90 fL (80-99); MEAN PLATELET VOLUME 9.8 fL (9.0-12.2); MONOCYTES # (AUTO) 0.7 10^3/uL (0.0-1.0); MONOCYTES % (AUTO) 6 % (0-12); NEUTROPHILS # (AUTO) 9.9 10^3/uL (1.8-7.8); NEUTROPHILS % (AUTO) 79 % (42-75); PLATELET COUNT 289 10^3/uL (130-400); WHITE BLOOD COUNT 12.6 10^3/uL (4.3-11.0)
[2021-09-27 20:28] LABS: BILIRUBIN,URINE NEGATIVE (NEGATIVE); CLARITY,URINE SL CLOUDY; COLOR,URINE YELLOW; GLUCOSE, URINE (UA) NEGATIVE (NEGATIVE); KETONES,URINE 3+ (NEGATIVE); LEUKOCYTE ESTERASE ,URINE NEGATIVE (NEGATIVE); NITRITE,URINE NEGATIVE (NEGATIVE); PROTEIN,URINE NEGATIVE (NEGATIVE)
[2021-09-27 20:46] LABS: BACTERIA,URINE FEW /HPF; RBC,URINE RARE /HPF; WBC,URINE 0-2 /HPF
[2021-09-27 20:47] LABS: URINE OTHER OCC CLUE CELLS /HPF
[2021-09-27 20:49] LABS: POTASSIUM 3.8 MMOL/L (3.6-5.0); SODIUM 137 MMOL/L (135-145)
[2021-09-27 20:50] LABS: ALANINE AMINOTRANSFERASE 12 U/L (0-55); ALBUMIN 4.7 GM/DL (3.2-4.5); ALKALINE PHOSPHATASE 73 U/L (40-136); BILIRUBIN,TOTAL 2.5 MG/DL (0.1-1.0); BUN/CREATININE RATIO 15; CALCIUM 9.5 MG/DL (8.5-10.1); CARBON DIOXIDE 24 MMOL/L (21-32); CHLORIDE 100 MMOL/L (98-107); CREATININE SERUM 0.46 MG/DL (0.60-1.30); GFR ESTIMATED 135; GLUCOSE 87 MG/DL (70-105); TOTAL PROTEIN 7.4 GM/DL (6.4-8.2)
[2021-09-27] MEDS ORDERED: ONDA4TAB11 PO (21:14)
[2021-09-27] MEDS ORDERED: RX-ONDANSETRON 4 MG ODT (ZOFRAN) PPK #4 PO PRN (21:15)
[2021-09-27 21:25] VITALS: BP 131/72
== END 2021-09-27 21:25 | disposition home or self-care (01) ==
LOC: EDUNIT# 19:33 → ER FS 19:34
DX: O21.0 Mild hyperemesis gravidarum (principal); O99.281 Endocrine, nutritional and metabolic diseases complicating pregnancy, first trimester; E86.0 Dehydration; O26.891 Other specified pregnancy related conditions, first trimester; R19.7 Diarrhea, unspecified; Z87.891 Personal history of nicotine dependence; Z20.822 Contact with and (suspected) exposure to COVID-19; Z3A.01 Less than 8 weeks gestation of pregnancy
CPT/HCPCS: 36415; 80053; 81000; 85025; 86141; 87635; 87636; 87804

== ENCOUNTER → 2021-09-27 | Outpatient (CLI) | payer MEDICAID ==
[~2021-09-27] MED LIST changes: +BISA-65 PO; +MAGN296S71 PO; +PROM25TA14 PO
[2021-09-27 16:17] LABS: HEMATOCRIT 38 % (35-52); HEMOGLOBIN 12.8 g/dL (11.5-16.0); MEAN CORPUSCULAR HEMOGLOBIN 30 pg (25-34); MEAN CORPUSCULAR HGB CONC 34 g/dL (32-36); MEAN CORPUSCULAR VOLUME 91 fL (80-99); MEAN PLATELET VOLUME 9.8 fL (9.0-12.2); PLATELET COUNT 239 10^3/uL (130-400); WHITE BLOOD COUNT 10.5 10^3/uL (4.3-11.0)
== END ==
LOC: LAB FS 15:40
PROVIDERS: ATTEND Family Medicine
DX: Z34.91 Encounter for supervision of normal pregnancy, unspecified, first trimester (principal); Z3A.00 Weeks of gestation of pregnancy not specified
CPT/HCPCS: 36415; 85027; 86703; 86762; 86780; 86850; 86900; 86901; 87088; 87340

== ENCOUNTER 2021-09-29 09:33 | Emergency (ER) | payer MEDICAID ==
[2021-09-29] MEDS ORDERED: LACTATED RINGERS 1,000 ML IV STA (09:44)
[2021-09-29] MEDS ORDERED: fentaNYL INJ 100 MCG/2 ML AMP IVP STA (09:44)
[2021-09-29] MEDS ORDERED: ONDANSETRON 4 MG/2 ML (SDV) Z0FRAN IVP ONE (09:45)
[2021-09-29 09:51] LABS: BASOPHILS % (AUTO) 0 % (0-10); EOSINOPHILS % (AUTO) 0 % (0-10); HEMATOCRIT 43 % (35-52); HEMOGLOBIN 15.3 g/dL (11.5-16.0); LYMPHOCYTES # (AUTO) 1.6 10^3/uL (1.0-4.0); LYMPHOCYTES % (AUTO) 7 % (12-44); MEAN CORPUSCULAR HEMOGLOBIN 31 pg (25-34); MEAN CORPUSCULAR HGB CONC 35 g/dL (32-36); MEAN CORPUSCULAR VOLUME 87 fL (80-99); MEAN PLATELET VOLUME 9.6 fL (9.0-12.2); MONOCYTES # (AUTO) 1.4 10^3/uL (0.0-1.0); MONOCYTES % (AUTO) 6 % (0-12); NEUTROPHILS # (AUTO) 19.3 10^3/uL (1.8-7.8); NEUTROPHILS % (AUTO) 86 % (42-75); PLATELET COUNT 353 10^3/uL (130-400); WHITE BLOOD COUNT 22.4 10^3/uL (4.3-11.0)
--- NOTE | 2021-09-29 09:59 | ED GI ---
General Chief Complaint: Abdominal/GI Problems Stated Complaint: SOB Nursing Triage Note: Reports she has beeen vomiting for 3 days. Pt is 7 weeks . Source of Information: Patient History of Present Illness Date Seen by Provider: Sep 29, 2021 Time Seen by Provider: 09:32 Initial Comments Here with persistent nausea and vomiting over the last 3 days. Reports that she is approximately 7 weeks . She has followed with Dr. Palacios. She was seen here 3 days ago and had Covid test, which was negative. She was prescribed outpatient antiemetics which she has completed and she is still having the nausea and vomiting. She states that she feels quite dry. Does have some upper abdominal pain after vomiting so much. Has had some diarrhea. Denies fever chills. She is not vaccinated for Covid but again this was negative for this illness. Timing/Duration: 3-4 Days, Getting Worse Severity/Quality: Moderate, Aching Location: Other (Upper abdominal musculature) Radiation: No Radiation Modifying Factors: Worsens With Eating Associated Symptoms: No Back Pain, No Chest Pain, No Fever/Chills; Nausea/Vomiting, Shortness of Air, Weakness Allergies and Home Medications Allergies Coded Allergies: No Known Drug Allergies (Unverified , 11/13/18) Patient Home Medication List Home Medication List Reviewed: Yes Bisacodyl (Dulcolax) 5 Mg Tablet.dr, 5 MG PO DAILY PRN PRN for CONSTIPATION-1ST LINE Prescribed by: CIPRIANO DESIR on 01/02/212108 Buspirone HCl (Buspirone HCl) 10 Mg Tablet, 10 MG PO HS, (Reported) Entered as Reported by: MICHAELA SANCHES on 12/23/20 1117 Hydrocodone/Acetaminophen (Hydrocodone-Acetamin 7.5-325) 1 Each Tablet, 1 EACH PO Q4H Prescribed by: WILDER TOURE on 12/24/20 1444 Hyoscyamine Sulfate (Levsin-Sl) 0.125 Mg Tab.subl, 0.125 MG SL Q4H PRN for CRAMPS Prescribed by: CIPRIANO DESIR on 01/02/212113 Magnesium Citrate (Magnesium Citrate) 296 Ml Solution, 296 ML PO ONCE PRN for CONSTIPATION-3RD LINE Prescribed by: CIPRIANO DESIR on 01/02/212108 Multivitamin/Iron/Folic Acid (Centrum Women Tablet) 1 Each Tablet, 1 EACH PO HS, (Reported) Entered as Reported by: MICHAELA SANCHES on 12/23/201116 Ondansetron (Ondansetron Odt) 4 Mg Tab.rapdis, 4 MG PO Q6H PRN for NAUSEA/VOMITING-1ST LINE, (Reported) Entered as Reported by: MICHAELA SANCHES on 12/23/201116 Ondansetron (Ondansetron Odt) 4 Mg Tab.rapdis, 4 MG PO Q6H PRN for NAUSEA/VOMITING Prescribed by: TOM PARKS on 09/27/212113 Pantoprazole Sodium (Pantoprazole Sodium) 40 Mg Tablet.dr, 40 MG PO DAILY, (Reported) Entered as Reported by: MICHAELA SANCHES on 12/23/201116 Sertraline HCl (Sertraline HCl) 100 Mg Tablet, 100 MG PO HS, (Reported) Entered as Reported by: MICHAELA SANCHES on 12/23/201116 Review of Systems Review of Systems Constitutional: see HPI; No chills, No fever EENTM: No Nose Congestion, No Throat Pain Respiratory: Denies Cough; Shortness of Air Cardiovascular: Denies Chest Pain, Denies Edema Gastrointestinal: Diarrhea, Vomiting Genitourinary: No Symptoms Reported Musculoskeletal: no symptoms reported Skin: no symptoms reported Psychiatric/Neurological: No Symptoms Reported All Other Systems Reviewed Negative Unless Noted: Yes Past Fvgqyfu-Tkwcxe-Tdqczd Hx Patient Social History Tobacco Use?: Yes Tobacco type used: Cigarettes Smoking Status: Former Smoker Use of E-Cig and/or Vaping dev: No Substance use?: No Alcohol Use?: No Pt feels they are or have been: No Seasonal Allergies Seasonal Allergies: No Past Medical History Surgeries: Yes (C/S 2018) Section, Gallbladder, Tonsillectomy Respiratory: No Cardiac: No Neurological: No Expected Date of Delivery: May 16, 2022 Sexually Transmitted Disease: No HIV/AIDS: No Genitourinary: No Gastrointestinal: No Musculoskeletal: No Endocrine: No HEENT: No Cancer: No Psychosocial: No Integumentary: No Blood Disorders: No Family Medical History Reviewed Nursing Family Hx Depression Hypertension 19 MOTHER noncontributory Physical Exam Vital Signs Vital Signs - First Documented 09/29/21 09:40 Temp 36.8 Pulse 82 Resp 20 B/P (MAP) 142/76 (98) Pulse Ox 100 O2 Delivery Room Air Capillary Refill : Less Than 3 Seconds Height/Weight/BMI Height: 5'4.00" Weight: 175lbs. 8.0oz. [id number]; 21.00 BMI Method:Stated General Appearance: WD/WN, no apparent distress HEENT: PERRL/EOMI, pharynx normal Neck: full range of motion, supple Respiratory: lungs clear, normal breath sounds Cardiovascular: regular rate, rhythm, no murmur Gastrointestinal: soft, tenderness (Along the musculature of the upper abdomen bilateral especially at the rib line) Extremities: normal range of motion, non-tender Back: no CVA tenderness, no vertebral tenderness Neurologic/Psychiatric: alert, oriented x 3 Skin: normal color, warm/dry Progress/Results/Core Measures Results/Orders Lab Results Laboratory Tests Test 09/29/21 09:47 09/29/21 10:21 Range/Units White Blood Count 22.4 H 4.3-11.0 10^3/uL Red Blood Count 4.98 3.80-5.11 10^6/uL Hemoglobin 15.3 11.5-16.0 g/dL Hematocrit 43 35-52 % Mean Corpuscular Volume 87 80-99 fL Mean Corpuscular Hemoglobin 31 25-34 pg Mean Corpuscular Hemoglobin Concent 35 32-36 g/dL Red Cell Distribution Width 13.2 10.0-14.5 % Platelet Count 353 130-400 10^3/uL Mean Platelet Volume 9.6 9.0-12.2 fL Immature Granulocyte % (Auto) 1 % Neutrophils (%) (Auto) 86 H 42-75 % Lymphocytes (%) (Auto) 7 L 12-44 % Monocytes (%) (Auto) 6 0-12 % Eosinophils (%) (Auto) 0 0-10 % Basophils (%) (Auto) 0 0-10 % Neutrophils # (Auto) 19.3 H 1.8-7.8 10^3/uL Lymphocytes # (Auto) 1.6 1.0-4.0 10^3/uL Monocytes # (Auto) 1.4 H 0.0-1.0 10^3/uL Eosinophils # (Auto) 0.0 0.0-0.3 10^3/uL Basophils # (Auto) 0.0 0.0-0.1 10^3/uL Immature Granulocyte # (Auto) 0.1 0.0-0.1 10^3/uL Neutrophils % (Manual) 85 % Lymphocytes % (Manual) 6 % Monocytes % (Manual) 7 % Eosinophils % (Manual) 0 % Basophils % (Manual) 0 % Band Neutrophils 2 % Sodium Level 135 135-145 MMOL/L Potassium Level 3.3 L 3.6-5.0 MMOL/L Chloride Level 100 98-107 MMOL/L Carbon Dioxide Level 18 L 21-32 MMOL/L Anion Gap 17 H 5-14 MMOL/L Blood Urea Nitrogen 12 7-18 MG/DL Creatinine 0.55 L 0.60-1.30 MG/DL Estimat Glomerular Filtration Rate 130 BUN/Creatinine Ratio 22 Glucose Level 106 H 70-105 MG/DL Calcium Level 10.1 8.5-10.1 MG/DL Corrected Calcium 8.5-10.1 MG/DL Total Bilirubin 3.1 H 0.1-1.0 MG/DL Aspartate Amino Transf (AST/SGOT) 14 5-34 U/L Alanine Aminotransferase (ALT/SGPT) 13 0-55 U/L Alkaline Phosphatase 76 40-136 U/L Total Protein 8.1 6.4-8.2 GM/DL Albumin 5.1 H 3.2-4.5 GM/DL Urine Color YELLOW Urine Clarity CLOUDY Urine pH 6.0 5-9 Urine Specific [place] >=1.030 1.016-1.022 Urine Protein 1+ H NEGATIVE Urine Glucose (UA) NEGATIVE NEGATIVE Urine Ketones 3+ H NEGATIVE Urine Nitrite NEGATIVE NEGATIVE Urine Bilirubin NEGATIVE NEGATIVE Urine Urobilinogen 0.2 < = 1.0 MG/DL Urine Leukocyte Esterase NEGATIVE NEGATIVE Urine RBC (Auto) NEGATIVE NEGATIVE Urine RBC NONE /HPF Urine WBC 0-2 /HPF Urine Squamous Epithelial Cells 2-5 /HPF Urine Crystals NONE /LPF Urine Bacteria MODERATE H /HPF Urine Casts NONE /LPF Urine Mucus MODERATE H /LPF Urine Culture Indicated YES My Orders Orders - LIZZIE LOVE MD Ondansetron Injection (Zofran Injectio (09/29/21 09:45) Lactated Ringers (Lr 1000 Ml Iv Solution (09/29/21 09:44) Ed Iv/Invasive Line Start (09/29/21 09:44) Cbc With Automated Diff (09/29/21 09:44) Comprehensive Metabolic Panel (09/29/21 09:44) Ua Culture If Indicated (09/29/21 09:44) Fentanyl Inj (Sublimaze Injection) (09/29/21 09:44) D5 Ns 1000 Ml Iv Solution (Dextrose 5%/0 (09/29/21 10:00) Manual Differential (09/29/21 09:47) D5 Lr Iv Solution (Dextrose 5%/Lactated (09/29/21 10:30) D5 Lr Iv Solution (Dextrose 5%/Lactated (09/29/21 10:26) Urine Culture (09/29/21 10:21) Promethazine Injection (Phenergan Injec (09/29/21 11:15) Medications Given in ED Current Medications Medications Dose Ordered Sig/Peri Route Start Time Stop Time Status Last Admin Dose Admin Ondansetron HCl 4 mg ONCE ONCE IVP 09/29/21 09:45 09/29/21 09:46 DC 09/29/21 09:55 4 MG Vital Signs/I&O 09/29/21 09:40 Temp 36.8 Pulse 82 Resp 20 B/P (MAP) 142/76 (98) Pulse Ox 100 O2 Delivery Room Air Blood Pressure Mean: 98 Progress Progress Note : Progress Note Seen and evaluated. Reviewed previous test which was negative for Covid. We will get IV and labs and check UA. LR 1 L bolus ordered. Zofran 4 mg IV as well as fentanyl 25 mcg IV ordered. Anticipate that we will give D5 normal saline 1 L bolus as well. Monitor patient. 1128: D5 LR was given as that is what we have here. We also gave Phenergan 12.5 mg IV. She is a little better but still vomits sometimes when she gets up. We will try at home and I will send prescription for Phenergan. I did discuss the case with Dr. Palacios and she is happy to see her as well. She did just see her yesterday. If Phenergan is not effective, she will call and a different medicine as there is concerns about possible hyperemesis gravidarum. I also discussed the white count and cha irubin. I believe this is related to her vomiting syndrome. She does have history of cholecystectomy due to poor functioning gallbladder. That was last November. Dr. Palacios will follow those labs. I did discuss with the patient regarding intake of fluids in light diet. She feels comfortable going home so we will do that now. Discharged home with return precautions. Patient verb alized understanding instructions and agreement with plan. Departure Impression Primary Impression: Nausea and vomiting during Disposition: 01 HOME, SELF-CARE Condition: Stable Departure-Patient Inst. Decision time for Depature: 11:31 Referrals: CURRY PALACIOS MD (PCP/Family) Primary Care Physician Patient Instructions: Nausea and Vomiting of Add. Discharge Instructions: All discharge instructions reviewed with patient and/or family. Voiced understanding. Clear liquids or light diet including half-strength Gatorade, 7-Up or Sprite and you may try crackers or similar. Follow-up with Dr. Palacios for recheck and further evaluation. Call her office if nausea and vomiting continues and they will call in a new prescription. 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 Return for worse pain, weakness, breathing problems, fever, persistent, uncontrolled vomiting or other concerns as needed. Scripts Promethazine HCl (Promethazine Tablet) 25 Mg Tablet 25 MG PO Q8H PRN for NAUSEA/VOMITING, #14 TAB 0 Refills Prov: LIZZIE LOVE MD 09/29/21 Copy Copies To 1: CURRY PALACIOS MD, TIMOTHY D MD Sep 29, 2021 09:59
[2021-09-29 10:11] LABS: BAND NEUTROPHILS 2 %; BASOPHILS % (MANUAL) 0 %; EOSINOPHILS % (MANUAL) 0 %; LYMPHOCYTES % (MANUAL) 6 %; MONOCYTES % (MANUAL) 7 %; NEUTROPHILS % (MANUAL) 85 %
[2021-09-29 10:22] LABS: BUN/CREATININE RATIO 22; CARBON DIOXIDE 18 MMOL/L (21-32); CHLORIDE 100 MMOL/L (98-107); CREATININE SERUM 0.55 MG/DL (0.60-1.30); GFR ESTIMATED 130; GLUCOSE 106 MG/DL (70-105); POTASSIUM 3.3 MMOL/L (3.6-5.0); SODIUM 135 MMOL/L (135-145)
[2021-09-29 10:23] LABS: ALANINE AMINOTRANSFERASE 13 U/L (0-55); ALBUMIN 5.1 GM/DL (3.2-4.5); ALKALINE PHOSPHATASE 76 U/L (40-136); BILIRUBIN,TOTAL 3.1 MG/DL (0.1-1.0); CALCIUM 10.1 MG/DL (8.5-10.1); TOTAL PROTEIN 8.1 GM/DL (6.4-8.2)
[2021-09-29] MEDS ORDERED: D5 LR IV SOLUTION 1,000 ML IV ONE (10:26)
[2021-09-29 10:27] LABS: BILIRUBIN,URINE NEGATIVE (NEGATIVE); CLARITY,URINE CLOUDY; COLOR,URINE YELLOW; GLUCOSE, URINE (UA) NEGATIVE (NEGATIVE); KETONES,URINE 3+ (NEGATIVE); LEUKOCYTE ESTERASE ,URINE NEGATIVE (NEGATIVE); NITRITE,URINE NEGATIVE (NEGATIVE); PROTEIN,URINE 1+ (NEGATIVE)
[2021-09-29] MEDS: D5 NS 1000 ML IV SOLUTION 1,000 ML IV SCH ×2 (10:28→10:30)
[2021-09-29] MEDS ORDERED: D5 LR IV SOLUTION 1,000 ML IV SCH (10:30)
[2021-09-29 10:39] LABS: BACTERIA,URINE MODERATE /HPF; WBC,URINE 0-2 /HPF
[2021-09-29] MEDS ORDERED: PROMETHAZINE INJ 25 MG/ML (PHENERGAN) AMP IVP STA (11:15)
[2021-09-29] MEDS ORDERED: PROM25TA14 PO (11:32)
[2021-09-29 11:38] VITALS: BP 134/72
== END 2021-09-29 11:38 | disposition home or self-care (01) ==
LOC: EDUNIT# 09:33 → ER FS 09:35
DX: O21.0 Mild hyperemesis gravidarum (principal); Z3A.01 Less than 8 weeks gestation of pregnancy; Z87.891 Personal history of nicotine dependence
CPT/HCPCS: 36415; 80053; 81000; 85007; 85027; 87088

== ENCOUNTER 2021-10-01 13:22 | Inpatient (IN) | payer MEDICAID ==
[~2021-10-01] VITALS: Ht 162.5 cm; Wt 57.4 kg
[~2021-10-01 13:22] MED LIST changes: +PROM25TA14 PO
[2021-10-01] MEDS ORDERED: ONDANSETRON 4 MG/2 ML (SDV) Z0FRAN IVP STA (13:33)
[2021-10-01] MEDS ORDERED: NS IV 1000 ML 1,000 ML IV STA (13:33)
[2021-10-01 13:40] LABS: BASOPHILS # (AUTO) 0.1 10^3/uL (0.0-0.1); BASOPHILS % (AUTO) 1 % (0-10); EOSINOPHILS % (AUTO) 0 % (0-10); HEMATOCRIT 42 % (35-52); HEMOGLOBIN 14.9 g/dL (11.5-16.0); LYMPHOCYTES # (AUTO) 2.2 10^3/uL (1.0-4.0); LYMPHOCYTES % (AUTO) 14 % (12-44); MEAN CORPUSCULAR HEMOGLOBIN 31 pg (25-34); MEAN CORPUSCULAR HGB CONC 35 g/dL (32-36); MEAN CORPUSCULAR VOLUME 87 fL (80-99); MEAN PLATELET VOLUME 9.7 fL (9.0-12.2); MONOCYTES # (AUTO) 1.4 10^3/uL (0.0-1.0); MONOCYTES % (AUTO) 9 % (0-12); NEUTROPHILS # (AUTO) 11.8 10^3/uL (1.8-7.8); NEUTROPHILS % (AUTO) 76 % (42-75); PLATELET COUNT 336 10^3/uL (130-400); WHITE BLOOD COUNT 15.4 10^3/uL (4.3-11.0)
[2021-10-01 13:41] LABS: CLARITY,URINE CLOUDY; COLOR,URINE YELLOW; GLUCOSE, URINE (UA) NEGATIVE (NEGATIVE); KETONES,URINE 3+ (NEGATIVE); LEUKOCYTE ESTERASE ,URINE TRACE (NEGATIVE); NITRITE,URINE NEGATIVE (NEGATIVE); PH,URINE 6.5 (5-9); PROTEIN,URINE TRACE (NEGATIVE)
--- NOTE | 2021-10-01 13:51 | ED General ---
General Chief Complaint: Abdominal/GI Problems Stated Complaint: VOMITING Source of Information: Patient, Old Records History of Present Illness Date Seen by Provider: Oct 01, 2021 Time Seen by Provider: 13:26 Initial Comments 25-year-old female presenting again to the emergency department with nausea and vomiting. She states that she is approximately 8 weeks now and had her first visit with Dr. Palacios on September 27. This is her third ER visit this week due to the nausea and vomiting. She states that despite the Zofran ODT and Phenergan she has not been able to keep fluids down at home and she has not been able to eat anything solid. She has not had any diarrhea and in the last 2 days has not had a bowel movement at all. She has had some upper abdominal pain from repeated episodes of nausea and vomiting. No other family members at home have been sick. She states that the clinic was trying to get her Diclegis for her n/v but it has been denied by insurance. Similarly, phenergan suppository medicine needed a prior authorization per patient. She feels like she is dizzy and light headed and that she can not take anything in by mouth as it just makes her feel worse and then she throws up. She reports she is not keeping even water down at home. Timing/Duration: 1 Week Severity: Severe Modifying Factors: worse with Eating Associated Systoms: No Chest Pain, No Cough, No Diaphoresis, No Fever/Chills, No Headaches, No Loss of Appetite; Malaise, Nausea/Vomiting; No Rash, No Seizure, No Shortness of Air, No Syncope; Weakness Allergies and Home Medications Allergies Coded Allergies: No Known Drug Allergies (Unverified , 11/13/18) Patient Home Medication List Home Medication List Reviewed: Yes Bisacodyl (Dulcolax) 5 Mg Tablet.dr, 5 MG PO DAILY PRN PRN for CONSTIPATION-1ST LINE Prescribed by: CIPRIANO DESIR on 01/02/212108 Buspirone HCl (Buspirone HCl) 10 Mg Tablet, 10 MG PO HS, (Reported) Entered as Reported by: MICHAELA SANCHES on 12/23/20 1117 Hydrocodone/Acetaminophen (Hydrocodone-Acetamin 7.5-325) 1 Each Tablet, 1 EACH PO Q4H Prescribed by: WILDER TOURE on 12/24/20 1444 Hyoscyamine Sulfate (Levsin-Sl) 0.125 Mg Tab.subl, 0.125 MG SL Q4H PRN for CRAMPS Prescribed by: CIPRIANO AMOSSTANDREWS on 01/02/212113 Magnesium Citrate (Magnesium Citrate) 296 Ml Solution, 296 ML PO ONCE PRN for CONSTIPATION-3RD LINE Prescribed by: CIPRIANO SIMMONSVENSTINE on 01/02/212108 Multivitamin/Iron/Folic Acid (Centrum Women Tablet) 1 Each Tablet, 1 EACH PO HS, (Reported) Entered as Reported by: MICHAELA SANCHES on 12/23/20 111 Ondansetron (Ondansetron Odt) 4 Mg Tab.rapdis, 4 MG PO Q6H PRN for NAUSEA/VOMITING-1ST LINE, (Reported) Entered as Reported by: MICHAELA SANCHES on 12/23/20 111 Ondansetron (Ondansetron Odt) 4 Mg Tab.rapdis, 4 MG PO Q6H PRN for NAUSEA/VOMITING Prescribed by: TOM PARKS on 09/27/212113 Ondansetron (Ondansetron Odt) 4 Mg Tab.rapdis, 4 MG PO Q6H PRN for NAUSEA/VOMITING Prescribed by: TOM PARKS on 10/01/21 1545 Pantoprazole Sodium (Pantoprazole Sodium) 40 Mg Tablet.dr, 40 MG PO DAILY, (Rep orted) Entered as Reported by: MICHAELA SANCHES on 12/23/20 111 Promethazine HCl (Promethazine Tablet) 25 Mg Tablet, 25 MG PO Q8H PRN for NAUSEA/VOMITING Prescribed by: LIZZIE LOVE on 09/29/21 1132 Promethazine HCl (Promethazine Suppository) 25 Mg Supp.rect, 12.5 MG RC Q6H PRN for NAUSEA/VOMITING Prescribed by: TOM PARKS on 10/01/21 1639 Sertraline HCl (Sertraline HCl) 100 Mg Tablet, 100 MG PO HS, (Reported) Entered as Reported by: MICHAELA SANCHES on 12/23/20 111 Discontinued Medications Promethazine HCl (Promethazine Suppository) 12.5 Mg Supp.rect, 12.5 MG RC Q6H PRN for NAUSEA/VOMITING Prescribed by: TOM PARKS on 10/01/21 1545 Review of Systems Review of Systems Constitutional: No chills; dizziness; No fever; malaise, weakness EENTM: no symptoms reported Respiratory: no symptoms reported Cardiovascular: no symptoms reported Gastrointestinal: see HPI Genitourinary: decreased output; No dysuria, No frequency Musculoskeletal: no symptoms reported Skin: No rash Psychiatric/Neurological: Denies Headache Hematologic/Lymphatic: Denies Blood Clots, Denies Easy Bleeding, Denies Easy Bruising Past Zyajktu-Gkvala-Bzpofo Hx Seasonal Allergies Seasonal Allergies: No Past Medical History Surgeries: Yes (C/S 2018) Section, Gallbladder, Tonsillectomy Respiratory: No Cardiac: No Neurological: No Sexually Transmitted Disease: No HIV/AIDS: No Genitourinary: No Gastrointestinal: No Musculoskeletal: No Endocrine: No HEENT: No Cancer: No Psychosocial: No Integumentary: No Blood Disorders: No Family Medical History Depression Hypertension 19 MOTHER noncontributory Physical Exam Vital Signs Vital Signs - First Documented 10/01/21 14:15 Temp 37.0 Pulse 78 Resp 16 B/P (MAP) 138/92 (107) Pulse Ox 100 O2 Delivery Room Air Capillary Refill : Height, Weight, BMI Height: 5'4.00" Weight: 175lbs. 8.0oz. [id number]; 21.00 BMI Method:Stated General Appearance: WD/WN, Other (laying on bed and has high pitched whine to her voice when answering questions) HEENT: PERRL/EOMI, Normal ENT Inspection, Pharynx Normal, Moist Mucous Membranes Neck: Full Range of Motion, Normal Inspection, Non Tender, Supple Respiratory: Chest Non Tender, Lungs Clear, Normal Breath Sounds, No Accessory Muscle Use, No Respiratory Distress Cardiovascular: Regular Rate, Rhythm, No Murmur, Normal Peripheral Pulses Gastrointestinal: Normal Bowel Sounds, No Pulsatile Mass, Soft; No Distended, No Guarding, No Rebound; Tenderness (mild tenderness to upper abdomen with palpation) Rectal: Deferred Back: Normal Inspection, No CVA Tenderness, No Vertebral Tenderness Extremity: Normal Capillary Refill, Normal Inspection, No Calf Tenderness, No Pedal Edema Neurologic/Psychiatric: Alert, Oriented x3 Skin: Normal Color, Warm/Dry Progress/Results/Core Measures Suspected Sepsis SIRS Temperature: Pulse: Respiratory Rate: Laboratory Tests 10/01/21 13:30: White Blood Count 15.4H Blood Pressure / Mean: Laboratory Tests 10/01/21 13:30: Creatinine 0.45L, Platelet Count 336, Total Bilirubin 3.0H Results/Orders Lab Results Laboratory Tests Test 10/01/21 13:30 10/01/21 16:03 Range/Units White Blood Count 15.4 H 4.3-11.0 10^3/uL Red Blood Count 4.86 3.80-5.11 10^6/uL Hemoglobin 14.9 11.5-16.0 g/dL Hematocrit 42 35-52 % Mean Corpuscular Volume 87 80-99 fL Mean Corpuscular Hemoglobin 31 25-34 pg Mean Corpuscular Hemoglobin Concent 35 32-36 g/dL Red Cell Distribution Width 12.8 10.0-14.5 % Platelet Count 336 130-400 10^3/uL Mean Platelet Volume 9.7 9.0-12.2 fL Immature Granulocyte % (Auto) 1 % Neutrophils (%) (Auto) 76 H 42-75 % Lymphocytes (%) (Auto) 14 12-44 % Monocytes (%) (Auto) 9 0-12 % Eosinophils (%) (Auto) 0 0-10 % Basophils (%) (Auto) 1 0-10 % Neutrophils # (Auto) 11.8 H 1.8-7.8 10^3/uL Lymphocytes # (Auto) 2.2 1.0-4.0 10^3/uL Monocytes # (Auto) 1.4 H 0.0-1.0 10^3/uL Eosinophils # (Auto) 0.0 0.0-0.3 10^3/uL Basophils # (Auto) 0.1 0.0-0.1 10^3/uL Immature Granulocyte # (Auto) 0.1 0.0-0.1 10^3/uL Neutrophils % (Manual) 69 % Lymphocytes % (Manual) 27 % Monocytes % (Manual) 3 % Eosinophils % (Manual) 0 % Basophils % (Manual) 0 % Band Neutrophils 1 % Urine Color YELLOW YELLOW Urine Clarity CLOUDY CLEAR Urine pH 6.5 7.0 5-9 Urine Specific [place] 1.025 H 1.015 L 1.016-1.022 Urine Protein TRACE H NEGATIVE NEGATIVE Urine Glucose (UA) NEGATIVE NEGATIVE NEGATIVE Urine Ketones 3+ H 3+ H NEGATIVE Urine Nitrite NEGATIVE NEGATIVE NEGATIVE Urine Bilirubin 1+ H NEGATIVE NEGATIVE Urine Urobilinogen 2.0 1.0 < = 1.0 MG/DL Urine Leukocyte Esterase TRACE H NEGATIVE NEGATIVE Urine RBC (Auto) TRACE-I H NEGATIVE NEGATIVE Urine RBC 0-2 0-2 /HPF Urine WBC 0-2 2-5 /HPF Urine Squamous Epithelial Cells 10-25 H 10-25 H /HPF Urine Crystals NONE NONE /LPF Urine Bacteria MODERATE H MODERATE H /HPF Urine Casts NONE NONE /LPF Urine Mucus SMALL H SMALL H /LPF Urine Culture Indicated NO NO Sodium Level 134 L 135-145 MMOL/L Potassium Level 3.2 L 3.6-5.0 MMOL/L Chloride Level 99 98-107 MMOL/L Carbon Dioxide Level 21 21-32 MMOL/L Anion Gap 14 5-14 MMOL/L Blood Urea Nitrogen 9 7-18 MG/DL Creatinine 0.45 L 0.60-1.30 MG/DL Estimat Glomerular Filtration Rate 136 BUN/Creatinine Ratio 20 Glucose Level 86 70-105 MG/DL Calcium Level 10.0 8.5-10.1 MG/DL Corrected Calcium 8.5-10.1 MG/DL Total Bilirubin 3.0 H 0.1-1.0 MG/DL Aspartate Amino Transf (AST/SGOT) 12 5-34 U/L Alanine Aminotransferase (ALT/SGPT) 13 0-55 U/L Alkaline Phosphatase 68 40-136 U/L Total Protein 7.6 6.4-8.2 GM/DL Albumin 4.8 H 3.2-4.5 GM/DL Lipase 24 8-78 U/L My Orders Orders - TOM PARKS MD Comprehensive Metabolic Panel (10/01/21 13:33) Lipase (10/01/21 13:33) Ua Culture If Indicated (10/01/21 13:33) Ed Iv/Invasive Line Start (10/01/21 13:33) Cbc With Automated Diff (10/01/21 13:33) Ns Iv 1000 Ml (Sodium Chloride 0.9%) (10/01/21 13:33) Ondansetron Injection (Zofran Injectio (10/01/21 13:33) Manual Differential (10/01/21 13:30) Famotidine Injection (Pepcid Injection) (10/01/21 14:11) Promethazine Injection (Phenergan Injec (10/01/21 14:11) Diphenhydramine Injection (Benadryl Inje (10/01/21 14:11) Potassium Cl 10meq/50ml Ivpb (Kcl 10 Meq (10/01/21 14:50) Lactated Ringers (Lr 1000 Ml Iv Solution (10/01/21 14:50) Ua Culture If Indicated (10/01/21 16:00) Lactated Ringers (Lr 1000 Ml Iv Solution (10/01/21 16:05) Promethazine Injection (Phenergan Injec (10/01/21 16:35) Diphenhydramine Injection (Benadryl Inje (10/01/21 16:35) Prochlorperazine Injection (Compazine In (10/01/21 17:10) Dicyclomine Injection (Bentyl Injection) (10/01/21 17:10) Diphenhydramine Injection (Benadryl Inje (10/01/21 17:10) Vital Signs/I&O 10/01/21 10/01/21 14:15 17:37 Temp 37.0 Pulse 78 78 Resp 16 18 B/P (MAP) 138/92 (107) 125/71 Pulse Ox 100 99 O2 Delivery Room Air Room Air Capillary Refill : Progress Note #1: Progress Note Obtain basic labs and urinalysis to compare to earlier this week. Give IV fluids for hydration, Zofran for nausea and vomiting. Discussed with Dr. Palacios, her PCP, about patient and plan. Dr. Palacios reports with insurance turning down Diclegis 2 times so far they have not been able to prescribe it yet. Will try tanking her up with fluids and anti- emetics and see if she can tolerate po. Progress Note #2: Progress Note White blood cell count improved back down to 15.4 thousand. The urinalysis was still showing elevated specific gravity greater than 1.020. She has 3+ ketones but no definite sign of infection. Awaiting chemistry panel. Patient reports that she is not seeing any significant improvement with Zofran and fluids as they have a few so far. Will try adding on Phenergan IV in addition to Pepcid 20 mg IV and 12.5 mg IV of Benadryl to help offset any possible dystonic reaction from the promethazine. Progress Note #3: Progress Note Chemistry appear stable with mild hypokalemia with potassium of 3.2. Her renal function and hepatic function remained stable. She continues to have mild elevation of her total bilirubin but it is stable at 3.0. Will order a dose of IV potassium along with her IVF and for 2nd bag of fluid will give 1 L of LR wide open to help dilute KCL 10 mEq. Progress Note #4: Time: 15:40 Progress Note Patient is tolerating ice chips in the room without vomiting. She reports improvement with treatment here in the ED. Potassium chloride and lactated Ringer's are still infusing. Progress Note #5: Time: 16:44 Progress Note Repeat urinalysis was still showing 3+ ketones. Her specific gravity had improved some. Patient up and moving around had which triggered some nausea for her. After she got back to the room and 3rd L of fluids infusing as another liter of LR was started she started having some retching and dry heaves. Had discussed options with Dr. Palacios about discharge to home to try the phenergan and see if suppository available since Diclegis was not being approved yet. Plan was to admit if she had recurrent n/v and was not tolerating po intake. Since she started having more problems before she could be discharged home will check about admit for continued hydration and trying to get her potassium improved as well as clear her ketones better and tolerate po prior to discharge to home. 1701 d/w Dr. Mancuso, [facility] geek squad agent physician, and she graciously accepted pt for observation admit and reviewed some bridge orders with me for the admit. Will try Compazine for her since the Phenergan and Zofran have not controlled her n/v. Departure Communication (Admissions) Time/Spoke to Admitting Phy: 17:01 Dr. Macnuso [facility] for party plan sales host/hostess service, accepted pt for observation admit for nausea and vomiting of with electrolyte imbalance. Will continue LR at 125 mL/hr, Try Compazine in place of phenergan, Give a Banana Bag with Multivitamin and thiamine, Continue Pepcid 20 mg IV BID. Impression Primary Impression: Nausea and vomiting during prior to 22 weeks gestation Additional Impressions: Hypokalemia Ketonuria Hyperemesis gravidarum before end of 22 week gestation with electrolyte imbalance Disposition: 30 STILL A PATIENT Condition: Stable Admissions Decision to Admit Reason: Admit from ER (General) Decision to Admit/Date: Oct 01, 2021 Time/Decision to Admit Time: 17:01 Departure-Patient Inst. Referrals: CURRY PALACIOS MD (PCP/Family) Primary Care Physician Add. Discharge Instructions: Continue to sip on fluids and electrolyte drinks. Consider Pedialyte and Pedialyte popsicles to help with your electrolytes. Continue with the nausea medicines and continue to work with Dr. Palacios and the clinic for prescriptions of nausea medication. [id number] you could consider using diphenhydramine or Benadryl to help some with nausea as well. The liquid medicine would be 12.5 mg and 5 mL or 1 teaspoon NG tube dose that at 12.5 mg or 1 teaspoon every 3-4 hours. If you take the capsules are pills tabs or 25 mg in your it is 1 pill every 5-6 hours. You could also take famotidine or Pepcid to help with stomach acid. This will be 20 mg once or twice a day to help with settle your stomach. All discharge instructions reviewed with patient and/or family. Voiced understanding. Scripts Promethazine HCl (Promethazine Suppository) 25 Mg Supp.rect 12.5 MG RC Q6H PRN for NAUSEA/VOMITING for 5 Days, #10 SUPP.RECT 0 Refills Prov: TOM PARKS MD 10/01/21 Ondansetron (Ondansetron Odt) 4 Mg Tab.rapdis 4 MG PO Q6H PRN for NAUSEA/VOMITING for 5 Days, #20 TAB 0 Refills Prov: TOM PARKS MD 10/01/21 TOM PARKS MD Oct 01, 2021 13:51
[2021-10-01 13:52] LABS: BACTERIA,URINE MODERATE /HPF; BILIRUBIN,URINE 1+ (NEGATIVE); RBC,URINE 0-2 /HPF; WBC,URINE 0-2 /HPF
[2021-10-01 14:05] LABS: BAND NEUTROPHILS 1 %; BASOPHILS % (MANUAL) 0 %; EOSINOPHILS % (MANUAL) 0 %; LYMPHOCYTES % (MANUAL) 27 %; MONOCYTES % (MANUAL) 3 %; NEUTROPHILS % (MANUAL) 69 %
[2021-10-01] MEDS ORDERED: PROMETHAZINE INJ 25 MG/ML (PHENERGAN) AMP IVP STA ×2 (14:11→16:35)
[2021-10-01] MEDS ORDERED: FAMOTIDINE 20MG/2ML IV (PEPCID) IVP STA (14:11)
[2021-10-01] MEDS ORDERED: diphenhydrAMINE 50 MG/ML INJ (BENADRYL) IVP STA ×3 (14:11→17:10)
[2021-10-01 14:16] LABS: SODIUM 134 MMOL/L (135-145)
[2021-10-01 14:17] LABS: ALANINE AMINOTRANSFERASE 13 U/L (0-55); ALKALINE PHOSPHATASE 68 U/L (40-136); BUN/CREATININE RATIO 20; CARBON DIOXIDE 21 MMOL/L (21-32); CHLORIDE 99 MMOL/L (98-107); CREATININE SERUM 0.45 MG/DL (0.60-1.30); GFR ESTIMATED 136; GLUCOSE 86 MG/DL (70-105); POTASSIUM 3.2 MMOL/L (3.6-5.0); TOTAL PROTEIN 7.6 GM/DL (6.4-8.2)
[2021-10-01 14:18] LABS: ALBUMIN 4.8 GM/DL (3.2-4.5); LIPASE 24 U/L (8-78)
[2021-10-01] MEDS ORDERED: LACTATED RINGERS 1,000 ML IV STA ×2 (14:50→16:05)
[2021-10-01] MEDS ORDERED: POTASSIUM CL 10MEQ/50ML IVPB 50 ML IV STA (14:50)
[2021-10-01] MEDS ORDERED: ONDA4TAB11 PO (15:45)
[2021-10-01] MEDS ORDERED: PROM12.566 RC (15:45)
[2021-10-01 16:11] LABS: BACTERIA,URINE MODERATE /HPF; BILIRUBIN,URINE NEGATIVE (NEGATIVE); CLARITY,URINE CLEAR; COLOR,URINE YELLOW; GLUCOSE, URINE (UA) NEGATIVE (NEGATIVE); KETONES,URINE 3+ (NEGATIVE); LEUKOCYTE ESTERASE ,URINE NEGATIVE (NEGATIVE); NITRITE,URINE NEGATIVE (NEGATIVE); PROTEIN,URINE NEGATIVE (NEGATIVE); RBC,URINE 0-2 /HPF
[2021-10-01] MEDS ORDERED: PROM25SU44 RC (16:39)
[2021-10-01] MEDS ORDERED: PROCHLORPERAZINE 10 MG/2ML INJ (COMPAZINE) IV STA (17:10)
[2021-10-01] MEDS ORDERED: DICYCLOMINE 10 MG/ML (BENTYL) 2 ML AMP IM STA (17:10)
[2021-10-01] MEDS ORDERED: THIAMINE INJECTION 100 MG, FOLIC ACID INJECTION 1 MG, MAGNESIUM SULFATE 2 GM, VITAMIN M... IV SCH ×5 (19:00)
[2021-10-01 19:01] VITALS: BP 158/78
[2021-10-01] MEDS: LACTATED RINGERS 1,000 ML IV SCH (19:48)
--- NOTE | 2021-10-01 19:50 | History & Physical-OB/GYN ---
History of Present Illness History of Present Illness Reason for visit/HPI Persistent nausea and vomiting in 1st trimester Date of Admission Oct 01, 2021 at 18:46 Date Seen by a Provider: Oct 01, 2021 Time Seen by a Provider: 19:34 I consulted on this patient on 10/01/21 19:33 Attending Physician Bibi Mancuso MD Admitting Physician Jessica Plasencia MD Consult Allergies and Home Medications Allergies Coded Allergies: No Known Drug Allergies (Unverified , 11/13/18) Patient Home Medication List Home Medication List Reviewed: Yes Bisacodyl (Dulcolax) 5 Mg Tablet.dr, 5 MG PO DAILY PRN PRN for CONSTIPATION-1ST LINE Prescribed by: CIPRIANO AMOSSTANDREWS on 01/02/212108 Buspirone HCl (Buspirone HCl) 10 Mg Tablet, 10 MG PO HS, (Reported) Entered as Reported by: MICHAELA SANCHES on 12/23/20 111 Hydrocodone/Acetaminophen (Hydrocodone-Acetamin 7.5-325) 1 Each Tablet, 1 EACH PO Q4H Prescribed by: WILDER TOURE on 12/24/20 1444 Hyoscyamine Sulfate (Levsin-Sl) 0.125 Mg Tab.subl, 0.125 MG SL Q4H PRN for CRAMPS Prescribed by: CIPRIANO DESIR on 01/02/212113 Magnesium Citrate (Magnesium Citrate) 296 Ml Solution, 296 ML PO ONCE PRN for CONSTIPATION-3RD LINE Prescribed by: CIPRIANO AMOSSTINE on 01/02/212108 Multivitamin/Iron/Folic Acid (Centrum Women Tablet) 1 Each Tablet, 1 EACH PO HS, (Reported) Entered as Reported by: MICHAELA SANCHES on 12/23/201116 Ondansetron (Ondansetron Odt) 4 Mg Tab.rapdis, 4 MG PO Q6H PRN for NAUSEA/VOMITING-1ST LINE, (Reported) Entered as Reported by: MICHAELA SANCHES on 12/23/20 111 Ondansetron (Ondansetron Odt) 4 Mg Tab.rapdis, 4 MG PO Q6H PRN for NAUSEA/VOMITING Prescribed by: TOM PARKS on 09/27/212113 Ondansetron (Ondansetron Odt) 4 Mg Tab.rapdis, 4 MG PO Q6H PRN for NAUSEA/VOMITING Prescribed by: TOM ROSSRT on 10/01/21 1545 Pantoprazole Sodium (Pantoprazole Sodium) 40 Mg Tablet.dr, 40 MG PO DAILY, (Reported) Entered as Reported by: MICHAELA SANCHES on 12/23/20 1117 Promethazine HCl (Promethazine Tablet) 25 Mg Tablet, 25 MG PO Q8H PRN for NAUSEA/VOMITING Prescribed by: LIZZIE LOVE on 09/29/21 1132 Promethazine HCl (Promethazine Suppository) 25 Mg Supp.rect, 12.5 MG RC Q6H PRN for NAUSEA/VOMITING Prescribed by: TOM PARKS on 10/01/21 1639 Sertraline HCl (Sertraline HCl) 100 Mg Tablet, 100 MG PO HS, (Reported) Entered as Reported by: MICHAELA SANCHES on 12/23/20 1117 Discontinued Medications Promethazine HCl (Promethazine Suppository) 12.5 Mg Supp.rect, 12.5 MG RC Q6H PRN for NAUSEA/VOMITING Prescribed by: TOM PARKS on 10/01/21 1545 Past Ythdrpl-Cuzzpn-Uyyxfh Hx Patient Social History Number of Children: 1 Drug of Choice: STATES SMOKES POT DAILY 2nd Hand Smoke Exposure: No Recent Hopitalizations: No Have you traveled recently?: No Alcohol Use?: No Pt feels they are or have been: No Seasonal Allergies Seasonal Allergies: No Surgeries Yes (C/S 2018) Section, Gallbladder, Tonsillectomy Respiratory No Cardiovascular No Neurological No Reproductive System : Yes Expected Date of Delivery: May 18, 2022 Last Menstrual Period: Aug 09, 2021 Hx : 2 Hx Para: 1001 Hx Total # of Abortions (Spona: 0 Hx Reproductive Disorders: No Sexually Transmitted Disease: No HIV/AIDS: No Female Reproductive Disorders: Denies Genitourinary No Gastrointestinal No Musculoskeletal No Endocrine History of Endocrine Disorders: No HEENT History of HEENT Disorders: No Cancer No Psychosocial History of Psychiatric Problem: No Integumentary History of Skin or Integumenta: No Blood Transfusions History of Blood Disorders: No Reviewed Nursing Assessment Reviewed/Agree w Nursing PMH: Yes Family Medical History Other Significan Family Hx: noncontributory Family Hx: Depression Hypertension 19 MOTHER Review of Systems Constitutional: malaise, weakness EENTM: no symptoms reported Respiratory: no symptoms reported Cardiovascular: no symptoms reported Gastrointestinal: abdominal pain, heartburn, nausea, vomiting Genitourinary: no symptoms reported : Yes Expected Date of Delivery: May 06, 2022 Musculoskeletal: no symptoms reported Skin: no symptoms reported Psychiatric/Neurological: No Symptoms Reported Physical Exam Physical Exam Vital Signs Vital Signs Date Time Temp Pulse Resp B/P (MAP) Pulse Ox O2 Delivery O2 Flow Rate FiO2 10/01/21 19:01 37.7 69 20 158/78 (104) 100 Room Air 10/01/21 17:37 78 18 125/71 99 Room Air 10/01/21 14:15 37.0 78 16 138/92 (107) 100 Room Air Capillary Refill : Less Than 3 Seconds Labs Laboratory Tests 10/01/21 13:30: White Blood Count 15.4H, Red Blood Count 4.86, Hemoglobin 14.9, Hematocrit 42, Mean Corpuscular Volume 87, Mean Corpuscular Hemoglobin 31, Mean Corpuscular Hemoglobin Concent 35, Red Cell Distribution Width 12.8, Platelet Count 336, Mean Platelet Volume 9.7, Immature Granulocyte % (Auto) 1, Neutrophils (%) (Auto) 76H, Lymphocytes (%) (Auto) 14, Monocytes (%) (Auto) 9, Eosinophils (%) (Auto) 0, Basophils (%) (Auto) 1, Neutrophils # (Auto) 11.8H, Lymphocytes # (Auto) 2.2, Monocytes # (Auto) 1.4H, Eosinophils # (Auto) 0.0, Basophils # (Auto) 0.1, Immature Granulocyte # (Auto) 0.1, Neutrophils % (Manual) 69, Lymphocytes % (Manual) 27, Monocytes % (Manual) 3, Eosinophils % (Manual) 0, Basophils % (Manual) 0, Band Neutrophils 1, Urine Color YELLOW, Urine Clarity CLOUDY, Urine pH 6.5, Urine Specific [place] 1.025H, Urine Protein TRACEH, Urine Glucose (UA) NEGATIVE, Urine Ketones 3+H, Urine Nitrite NEGATIVE, Urine Bilirubin 1+H, Urine Urobilinogen 2.0, Urine Leukocyte Esterase TRACEH, Urine RBC (Auto) TRACE-IH, Urine RBC 0-2, Urine WBC 0-2, Urine Squamous Epithelial Cells 10-25H, Urine Crystals NONE, Urine Bacteria MODERATEH, Urine Casts NONE, Urine Mucus SMALLH, Urine Culture Indicated NO, Sodium Level 134L, Potassium Level 3.2L, Chloride Level 99, Carbon Dioxide Level 21, Anion Gap 14, Blood Urea Nitrogen 9, Creatinine 0.45L, Estimat Glomerular Filtration Rate 136, BUN/Creatinine Ratio 20, Glucose Level 86, Calcium Level 10.0, Corrected Calcium , Total Bilirubin 3.0H, Aspartate Amino Transf (AST/SGOT) 12, Alanine Aminotransferase (ALT/SGPT) 13, Alkaline Phosphatase 68, Total Protein 7.6, Albumin 4.8H, Lipase 24 10/01/21 16:03: Urine Color YELLOW, Urine Clarity CLEAR, Urine pH 7.0, Urine Specific [place] 1.015L, Urine Protein NEGATIVE, Urine Glucose (UA) NEGATIVE, Urine Ketones 3+H, Urine Nitrite NEGATIVE, Urine Bilirubin NEGATIVE, Urine Urobilinogen 1.0, Urine Leukocyte Esterase NEGATIVE, Urine RBC (Auto) NEGATIVE, Urine RBC 0-2, Urine WBC 2-5, Urine Squamous Epithelial Cells 10-25H, Urine Crystals NONE, Urine Bacteria MODERATEH, Urine Casts NONE, Urine Mucus SMALLH, Urine Culture Indicated NO Assessment/Plan Assessment and Plan Lizet Su is a 25 yo at 7w3d (1st trimester US c/w LMP with NEAL of 05/16/2022), who presented as a transfer of care from [place] ED with a 5 day history of nausea and vomiting, refractory to Zofran, benadryl and Phenergan. She has also presented to the ED 3 times over the last week. She presents for further workup and management. # 7 weeks gestation: labs have been completed in office with Dr. Plasencia. 1st trimester US does not appear to have been completed. Will obtain pelvic US while in house to confirm dates. # Nausea and vomiting in : Failed zofran 4mg, phenergan 12.5mg and benadryl. Will continue nausea and vomiting in algorithm endorsed by ACOG Practice Bulletin #189 and start Compazine 5mg q8 hours scheduled and diphenhydramine 25mg q6 hours. - Will also add B6 25mg TID and unisom 25 mg QHS. - Due to dehydration, banana bag is ordered this evening. Will plan for daily thiamine, folic acid and multivitamin supplements. - Labs: Daily CBC, CMP, Mag and Phosphate. - Diet: Clears diet is ordered. Will change diet as tolerated with a goal of patient tolerating a regular diet. # Hypokalemia: Admission K of 3.2. Will replete appropriately and assess bloodwork in the morning. # Dispo: Home pending improvement. Problems: (1) Nausea and vomiting during prior to 22 weeks gestation (2) 7 weeks gestation of Admission Diagnosis Nausea and vomiting in , prior to 22 weeks gestation Admission Status: Observation Diagnosis/Problems Diagnosis/Problems (1) 7 weeks gestation of (2) Nausea and vomiting during prior to 22 weeks gestation Clinical Quality Measures Admission Status Admission Dx Nausea and vomiting in Admission Status: Observation DVT/VTE Risk/Contraindication: VTE Addressed: Yes VTE Present on Admission: No RFS Level Per Nursing on Admit: 2=Moderate DVT/VTE Prophylaxis Comfirm.Dx Pharmacological not ordered: BIBI MANCUSO MD Oct 01, 2021 19:50
[2021-10-01] MEDS ORDERED: FAMOTIDINE 20MG/2ML IV (PEPCID) IVP SCH (21:00)
[2021-10-01] MEDS ORDERED: PROCHLORPERAZINE 10 MG/2ML INJ (COMPAZINE) IV PRN (22:00)
[2021-10-01 23:20] VITALS: BP 145/82
[2021-10-01] MEDS: PROCHLORPERAZINE 10 MG/2ML INJ (COMPAZINE) IV PRN (23:22)
[2021-10-01] MEDS: diphenhydrAMINE 50 MG/ML INJ (BENADRYL) IVP SCH (23:22)
[2021-10-02 03:32] VITALS: BP 106/60
[2021-10-02] MEDS: LACTATED RINGERS 1,000 ML IV SCH ×2 (04:58→14:37)
[2021-10-02 06:39] LABS: BASOPHILS # (AUTO) 0.1 10^3/uL (0.0-0.1); BASOPHILS % (AUTO) 1 % (0-10); EOSINOPHILS % (AUTO) 0 % (0-10); HEMATOCRIT 35 % (35-52); HEMOGLOBIN 12.1 g/dL (11.5-16.0); LYMPHOCYTES # (AUTO) 2.4 10^3/uL (1.0-4.0); LYMPHOCYTES % (AUTO) 25 % (12-44); MEAN CORPUSCULAR HEMOGLOBIN 30 pg (25-34); MEAN CORPUSCULAR HGB CONC 35 g/dL (32-36); MEAN CORPUSCULAR VOLUME 88 fL (80-99); MEAN PLATELET VOLUME 10.1 fL (9.0-12.2); MONOCYTES # (AUTO) 0.8 10^3/uL (0.0-1.0); MONOCYTES % (AUTO) 9 % (0-12); NEUTROPHILS # (AUTO) 6.1 10^3/uL (1.8-7.8); NEUTROPHILS % (AUTO) 65 % (42-75); PLATELET COUNT 222 10^3/uL (130-400); WHITE BLOOD COUNT 9.5 10^3/uL (4.3-11.0)
[2021-10-02] MEDS ORDERED: FAMOTIDINE 20MG/2ML IV (PEPCID) ONE (06:42)
[2021-10-02] MEDS: FAMOTIDINE 20MG/2ML IV (PEPCID) IVP SCH ×2 (06:44→20:07)
[2021-10-02] MEDS: PROCHLORPERAZINE 10 MG/2ML INJ (COMPAZINE) IV PRN (06:49)
[2021-10-02] MEDS: diphenhydrAMINE 50 MG/ML INJ (BENADRYL) IVP SCH ×2 (06:49→18:21)
[2021-10-02 06:51] LABS: CALCIUM 7.9 MG/DL (8.5-10.1)
[2021-10-02 06:55] LABS: PHOSPHORUS 3.3 MG/DL (2.3-4.7)
[2021-10-02 06:56] LABS: CREATININE SERUM 0.48 MG/DL (0.60-1.30)
[2021-10-02 06:58] LABS: MAGNESIUM 2.1 MG/DL (1.6-2.4)
[2021-10-02] MEDS: PRENATAL VITAMIN 1 EA TAB PO SCH (07:00)
[2021-10-02] MEDS ORDERED: methylPREDNISolone 40 MG/ML (Solu-MEDROL) VIAL IV SCH ×2 (08:15→14:00)
[2021-10-02 08:23] VITALS: BP 144/73
[2021-10-02] MEDS: PYRIDOXINE (VITAMIN B-6) 50 MG TABLET PO SCH ×2 (09:00→21:00)
--- NOTE | 2021-10-02 09:46 | Diagnostic Imaging Report ---
Procedure: US OB SINGLE FETUS <14 WKS. Technique: Multiple real-time grayscale images were obtained over the gravid uterus in various projections. Date: October 02, 2021. Indication: 25-year-old female, assessment of dates. Uncertain last menstrual period. Comparison: None. Findings: The uterus measures 9.3 x 6.1 x 6.8 cm in size. There is an oval gestational sac with a single living intrauterine . Estimated gestational age based on today's ultrasound crown-rump length measurements is 8 weeks and 2 days +/- 1 week. heart rate is measured at 179 bpm. There is a normal-appearing yolk sac. There is no identified perigestational fluid collection. There is no identified intrauterine mass. Left ovary measures 3.6 x 2.7 x 2.8 cm in size and does demonstrate internal blood flow. The right ovary is not well seen. There is no concerning adnexal mass demonstrated. There is no free pelvic fluid. Impression: 1. Single living intrauterine with estimated gestational age of 8 weeks and 2 days +/- 1 week. 2. Unremarkable appearance of the left ovary. Right ovary is not well seen. 3. No demonstrated concerning adnexal mass or free pelvic fluid. Dictated by: Dictated on workstation # [id number]
[2021-10-02] MEDS: FOLIC ACID INJECTION 1 MG in NS (IVPB) 50 ML IV SCH (11:46)
--- NOTE | 2021-10-02 11:51 | Antepartum Progress Note ---
Antepartum Progress Antepartum Progress Date Seen by Provider: Oct 02, 2021 Time Seen by Provider: 09:30 Hospital Day # 2 Interval History: Patient slept overnight without complaints, but at 0730, 30 minutes after receiving 20mg pepcid, 5mg of IV compazine and 25mg of IV benadryl, she began vomiting. She had 3 episodes of emesis, per the nurse. She was started on IV Methylprednisolone 16mg q8 hours for 3 days. Subjective: This morning, she has not had any further emesis since receiving IV Methylprednisolone. She does report feeling nauseous after having her pelvic ultrasound completed this morning. She also stated that she felt as though her symptoms responded better to phenergan when asked which agent (IV zofran, phenergan or compazine) has controlled her symptoms. She is tolerated ice chips and some water. Clear diet is ordered for her. She also endorses some diarrhea this morning. Denies fever, chills, constipation, vaginal bleeding, or contractions. Objective: Vital Signs 10/02/21 08:23 Temp 38.0 Pulse 67 Resp 18 B/P (MAP) 144/73 (96) Pulse Ox 100 O2 Delivery Room Air Physical Exam General - alert and oriented, no apparent distress Abdomen - Soft, gravid, non-tender to palpation Ext - non-tender to palpation, no edema, negative Vladimir's bilaterally heart tones: 179 bpm Assessment: Lizet Su is a 25yo /Para 2 / 1001 at 7w4d by LMP consistent with 1st trimester US (completed today in house), admitted with persistent nausea and vomiting in , likely due to hyperemesis gravidarum. New onset diarrhea, will start Imodium. Will also rule out hypothyroidism with TSH and free T4 with AM labs. Plan: Continue current plan. # Nausea/vomiting: - Daily labs: CBC, CMP, Mag, Phos with plans to replete electrolytes appropriately. Will add TSH/free t4 to AM labs to rule out hypothyroidism as a potential etiology of her symptoms. - Compazine discontinued. Methyprednisolone 16mg q8 hrs for 3 days started today due to symptoms that have been refractory to standard antiemetics in accordance with ACOG Practice Bulletin. Will exchange with Phenergan 25mg q6hrs scheduled and continue benadryl 25mg q6 hrs scheduled, Pepcid 20mg BID, folic acid IV and liquid multivitamin. Thiamine is on back order and thus not available in house. Will start B6 and vitamins when patient is tolerating po intake. # Hypokalemia: AM potassium is 3.0 from 3.2 on admission. Will replete with 40meq of KCL IV followed by D5 LR + 40meq KCL at 125cc/hr. # Diarrhea: Oral liquid Imodium ordered PRN. # Diet: Clear diet. Advance as tolerated. # 7.4 weeks gestation: Dating US completed today demonstrated pole measuring 8.2wga, this is consistent with LMP, so will keep original due date. # DVT ppx: Ambulation encouraged. SCDs in place when in bed. # Dispo: Will plan to prescribe a steroid taper upon discharge (50mg --> 40mg --> 30mg --> 20mg --> 10mg), pepcid 20mg BID, Diclegis daily for ppx (which has already been sent to her pharmacy by Dr. Plasencia), phenergan 25mg q6 hrs PRN and benadryl 25 mg q6hr PRN. Vitals - Labs Vital Signs - I&O Vital Signs Date Time Temp Pulse Resp B/P (MAP) Pulse Ox O2 Delivery O2 Flow Rate FiO2 10/02/21 08:23 38.0 67 18 144/73 (96) 100 Room Air 10/02/21 03:32 37.7 67 14 106/60 (75) 97 Room Air 10/01/21 23:20 37.4 80 16 145/82 (103) 99 10/01/21 19:01 37.7 69 20 158/78 (104) 100 Room Air 10/01/21 17:37 78 18 125/71 99 Room Air 10/01/21 14:15 37.0 78 16 138/92 (107) 100 Room Air I & O 10/02/21 06:59 Intake Total 2015.2 ml Balance 2015.2 ml Labs Laboratory Tests 10/01/21 13:30: White Blood Count 15.4H, Red Blood Count 4.86, Hemoglobin 14.9, Hematocrit 42, Mean Corpuscular Volume 87, Mean Corpuscular Hemoglobin 31, Mean Corpuscular Hemoglobin Concent 35, Red Cell Distribution Width 12.8, Platelet Count 336, Mean Platelet Volume 9.7, Immature Granulocyte % (Auto) 1, Neutrophils (%) (Auto) 76H, Lymphocytes (%) (Auto) 14, Monocytes (%) (Auto) 9, Eosinophils (%) (Auto) 0, Basophils (%) (Auto) 1, Neutrophils # (Auto) 11.8H, Lymphocytes # (Auto) 2.2, Monocytes # (Auto) 1.4H, Eosinophils # (Auto) 0.0, Basophils # (Auto) 0.1, Immature Granulocyte # (Auto) 0.1, Neutrophils % (Manual) 69, Lymphocytes % (Manual) 27, Monocytes % (Manual) 3, Eosinophils % (Manual) 0, Basophils % (Manual) 0, Band Neutrophils 1, Urine Color YELLOW, Urine Clarity CLOUDY, Urine pH 6.5, Urine Specific Woodman 1.025H, Urine Protein TRACEH, Urine Glucose (UA) NEGATIVE, Urine Ketones 3+H, Urine Nitrite NEGATIVE, Urine Bilirubin 1+H, Urine Urobilinogen 2.0, Urine Leukocyte Esterase TRACEH, Urine RBC (Auto) TRACE-IH, Urine RBC 0-2, Urine WBC 0-2, Urine Squamous Epithelial Cells 10-25H, Urine Crystals NONE, Urine Bacteria MODERATEH, Urine Casts NONE, Urine Mucus SMALLH, Urine Culture Indicated NO, Sodium Level 134L, Potassium Level 3.2L, Chloride Level 99, Carbon Dioxide Level 21, Anion Gap 14, Blood Urea Nitrogen 9, Creatinine 0.45L, Estimat Glomerular Filtration Rate 136, BUN/Creatinine Ratio 20, Glucose Level 86, Calcium Level 10.0, Corrected Calcium , Total Bilirubin 3.0H, Aspartate Amino Transf (AST/SGOT) 12, Alanine Aminotransferase (ALT/SGPT) 13, Alkaline Phosphatase 68, Total Protein 7.6, Albumin 4.8H, Lipase 24 10/01/21 16:03: Urine Color YELLOW, Urine Clarity CLEAR, Urine pH 7.0, Urine Specific Woodman 1.015L, Urine Protein NEGATIVE, Urine Glucose (UA) NEGATIVE, Urine Ketones 3+H, Urine Nitrite NEGATIVE, Urine Bilirubin NEGATIVE, Urine Urobilinogen 1.0, Urine Leukocyte Esterase NEGATIVE, Urine RBC (Auto) NEGATIVE, Urine RBC 0-2, Urine WBC 2-5, Urine Squamous Epithelial Cells 10-25H, Urine Crystals NONE, Urine Bacteria MODERATEH, Urine Casts NONE, Urine Mucus SMALLH, Urine Culture Indicated NO 10/02/21 06:05: White Blood Count 9.5, Red Blood Count 3.98, Hemoglobin 12.1, Hematocrit 35, Mean Corpuscular Volume 88, Mean Corpuscular Hemoglobin 30, Mean Corpuscular He moglobin Concent 35, Red Cell Distribution Width 12.5, Platelet Count 222, Mean Platelet Volume 10.1, Immature Granulocyte % (Auto) 1, Neutrophils (%) (Auto) 65, Lymphocytes (%) (Auto) 25, Monocytes (%) (Auto) 9, Eosinophils (%) (Auto) 0, Basophils (%) (Auto) 1, Neutrophils # (Auto) 6.1, Lymphocytes # (Auto) 2.4, Monocytes # (Auto) 0.8, Eosinophils # (Auto) 0.0, Basophils # (Auto) 0.1, Immature Granulocyte # (Auto) 0.1, Sodium Level 135, Potassium Level 3.0L, Chloride Level 106, Carbon Dioxide Level 19L, Anion Gap 10, Blood Urea Nitrogen 4L, Creatinine 0.48L, Estimat Glomerular Filtration Rate 134, BUN/Creatinine Ratio 8, Glucose Level 74, Calcium Level 7.9L, Phosphorus Level 3.3, Magnesium Level 2.1 BIBI CASTELLON MD Oct 02, 2021 11:51
[2021-10-02] MEDS ORDERED: PRD10T MT (11:59)
[2021-10-02 14:30] VITALS: BP 141/74
[2021-10-02] MEDS: PROMETHAZINE INJ 25 MG/ML (PHENERGAN) AMP IVP PRN ×2 (14:37→20:08)
[2021-10-02] MEDS: POTASSIUM CL 10MEQ/50ML IVPB 50 ML IV SCH ×4 (15:33→18:50)
[2021-10-02] MEDS: methylPREDNISolone 40 MG/ML (Solu-MEDROL) VIAL IV SCH (16:37)
[2021-10-02] MEDS ORDERED: POTASSIUM CL 10MEQ/50ML IVPB 50 ML IV ONE ×2 (17:34→18:47)
[2021-10-02] MEDS: POTASSIUM CHLORIDE IV SCH (19:30)
[2021-10-02] MEDS: D5 LR IV SCH (19:30)
[2021-10-02 19:40] VITALS: BP 140/73
[2021-10-02] MEDS ORDERED: PROMETHAZINE INJ 25 MG/ML (PHENERGAN) AMP ONE (20:03)
[2021-10-03] MEDS: methylPREDNISolone 40 MG/ML (Solu-MEDROL) VIAL IV SCH ×3 (00:12→18:02)
[2021-10-03 00:17] VITALS: BP 114/60
[2021-10-03] MEDS: LACTATED RINGERS 1,000 ML IV SCH (04:55)
[2021-10-03 05:49] VITALS: BP 111/59
[2021-10-03 06:55] LABS: FREE T4 (FREE THYROXINE) 1.37 NG/DL (0.70-1.48)
[2021-10-03 08:47] VITALS: BP 114/63
[2021-10-03] MEDS: FAMOTIDINE 20MG/2ML IV (PEPCID) IVP SCH ×2 (08:51→21:45)
[2021-10-03] MEDS: PROMETHAZINE INJ 25 MG/ML (PHENERGAN) AMP IVP PRN ×2 (08:53→16:37)
--- NOTE | 2021-10-03 10:43 | Antepartum Progress Note ---
Antepartum Progress Antepartum Progress Date Seen by Provider: Oct 03, 2021 Time Seen by Provider: 09:45 Hospital Day # 3 Interval History: Per nursing, the patient did continue to have emesis throuhgout the day on HD#2 despite her medication regimen. She also ate some jello and chicken broth throughout the day. Night nursing staff states that the patient slept through the night without complaints of emesis. At 0900, patient's nurse stated that patient denied having emesis this morning, but informed her that she had 2 episodes of emesis overnight that the night nurse was not aware of. Subjective: Patient is resting comfortably in bed. She reports experiencing 3 episodes of emesis between 0900 and 0930. She also complains of pain along her right arm, where she received KCL infusion on HD#2. She is requesting for medication for pain control for her arm. Activity: ambulating in the room. Clear diet with emesis and nausea. No loss of fluid, vaginal bleeding, or contractions. Objective: Vital Signs 10/03/21 08:47 Temp 36.9 Pulse 89 Resp 18 B/P (MAP) 114/63 (80) Pulse Ox 98 O2 Delivery Room Air Physical Exam General - alert and oriented, no apparent distress Abdomen - Soft, gravid, non-tender to palpation Ext - Right arm is tender to palpation. No erythema or edema noted. Lower extremities are non-tender to palpation. Negative Vladimir's bilaterally heart tones: 178 bpm Assessment: Lizet Su is a 25yo /Para 2 / 1001 at 7w5d by LMP consistent with 1st trimester US (completed today in house), admitted with persistent nausea and vomiting in , likely due to hyperemesis gravidarum. Pt reports that her symptoms have mildly improved with current medical regimen of scheduled Methylprednisolone, Phenergan and benadryl; however, she continues to experience emesis. Concerned for an underlying mood disorder as a precipitating factor to her symptoms. Plan: Continue current plan. # Nausea/vomiting: - Daily labs: CBC, CMP, Mag, Phos with plans to replete electrolytes appropriately. Normal TSH and T4; no concerns for thyroid disease as an etiology of her symptoms. - Compazine discontinued. Methyprednisolone 16mg q8 hrs for 3 days started on HD#2 due to symptoms that have been refractory to standard antiemetics in accordance with ACOG Practice Bulletin. Phenergan 25mg q6hrs scheduled, benadryl 25mg q6 hrs scheduled, Pepcid 20mg BID, folic acid IV and liquid multivitamin. Thiamine is on back order and thus not available in house. Will start B6 and vitamins when patient is tolerating po intake. - Reglan 10mg q6hrs PRN and Ativan 1mg q6hrs PRN added for anxiety. Will assess whether these aid with her symptoms. - If her symptoms persist, will consider transferring patient for further management. # Hypokalemia: Continue 40meq KCL at 125cc/hr. AM labs pending. # Diarrhea: Oral liquid Imodium ordered PRN. # Diet: Clear diet. Advance as tolerated. # 7.5 weeks gestation: Dating US completed today demonstrated pole measuring 8.2wga, this is consistent with LMP, so will keep original due date. # DVT ppx: Ambulation encouraged. SCDs in place when in bed. # Dispo: Will plan to prescribe a steroid taper upon discharge (50mg --> 40mg --> 30mg --> 20mg --> 10mg), pepcid 20mg BID, Diclegis daily for ppx (which has already been sent to her pharmacy by Dr. Plasencia), phenergan 25mg q6 hrs PRN and benadryl 25 mg q6hr PRN. Vitals - Labs Vital Signs - I&O Vital Signs Date Time Temp Pulse Resp B/P (MAP) Pulse Ox O2 Delivery O2 Flow Rate FiO2 10/03/21 08:47 36.9 89 18 114/63 (80) 98 Room Air 10/03/21 05:49 36.8 74 111/59 (76) 10/03/21 00:17 37.0 83 18 114/60 (78) 100 10/02/21 19:40 37.1 75 18 140/73 (95) 100 10/02/21 14:30 36.9 90 18 141/74 (96) 100 Room Air I & O 10/03/21 07:00 Intake Total 1250.2 ml Balance 1250.2 ml Labs Laboratory Tests 10/03/21 06:01: Thyroid Stimulating Hormone (TSH) 0.89, Free Thyroxine 1.37 BIBI CASTELLON MD Oct 03, 2021 10:43
[2021-10-03] MEDS ORDERED: ACETAMINOPHEN 325 MG TABLET PO PRN (11:45)
[2021-10-03] MEDS: METOCLOPRAMIDE INJ 10 MG/2 ML (REGLAN) IVP PRN (11:54)
[2021-10-03] MEDS: LORazepam INJ 2 MG/ML (ATIVAN) VIAL IVP PRN (11:55)
[2021-10-03 12:00] VITALS: BP 124/78
[2021-10-03 12:48] LABS: BASOPHILS % (AUTO) 0 % (0-10); EOSINOPHILS % (AUTO) 0 % (0-10); HEMATOCRIT 42 % (35-52); HEMOGLOBIN 14.9 g/dL (11.5-16.0); LYMPHOCYTES # (AUTO) 1.1 10^3/uL (1.0-4.0); LYMPHOCYTES % (AUTO) 8 % (12-44); MEAN CORPUSCULAR HEMOGLOBIN 31 pg (25-34); MEAN CORPUSCULAR HGB CONC 35 g/dL (32-36); MEAN CORPUSCULAR VOLUME 89 fL (80-99); MEAN PLATELET VOLUME 10.2 fL (9.0-12.2); MONOCYTES # (AUTO) 0.5 10^3/uL (0.0-1.0); MONOCYTES % (AUTO) 3 % (0-12); NEUTROPHILS # (AUTO) 12.6 10^3/uL (1.8-7.8); NEUTROPHILS % (AUTO) 88 % (42-75); PLATELET COUNT 280 10^3/uL (130-400); WHITE BLOOD COUNT 14.3 10^3/uL (4.3-11.0)
[2021-10-03 13:06] LABS: ALBUMIN 4.5 GM/DL (3.2-4.5); POTASSIUM 3.4 MMOL/L (3.6-5.0)
[2021-10-03 13:07] LABS: CALCIUM 9.4 MG/DL (8.5-10.1)
[2021-10-03 13:09] LABS: TOTAL PROTEIN 7.2 GM/DL (6.4-8.2)
[2021-10-03 13:10] LABS: BILIRUBIN,TOTAL 3.2 MG/DL (0.1-1.0)
[2021-10-03 13:12] LABS: CREATININE SERUM 0.61 MG/DL (0.60-1.30); PHOSPHORUS 3.2 MG/DL (2.3-4.7)
[2021-10-03 13:13] LABS: LYMPHOCYTES % (MANUAL) 8 %; MONOCYTES % (MANUAL) 1 %; NEUTROPHILS % (MANUAL) 91 %; RBC MORPH NORMAL
[2021-10-03 13:15] LABS: MAGNESIUM 2.1 MG/DL (1.6-2.4)
[2021-10-03 15:30] VITALS: BP 148/86
[2021-10-03] MEDS ORDERED: ACETAMINOPHEN 650 MG SUPP (TYLENOL) PR PRN (17:30)
[2021-10-03] MEDS ORDERED: ACETAMINOPHEN 650 MG SUPP (TYLENOL) ONE (17:51)
[2021-10-03] MEDS: D5 LR IV SCH (18:02)
[2021-10-03] MEDS: POTASSIUM CHLORIDE IV SCH (18:02)
[2021-10-03 19:38] VITALS: BP 135/87
[2021-10-03 23:45] LABS: BENZODIAZEPINES SCREEN URINE POSITIVE (NEGATIVE)
[2021-10-03 23:46] LABS: AMPHETAMINE SCREEN, URINE NEGATIVE (NEGATIVE); BARBITURATE SCREEN URINE NEGATIVE (NEGATIVE); CANNABINOID SCREEN, URINE POSITIVE (NEGATIVE); COCAINE SCREEN URINE NEGATIVE (NEGATIVE); METHADONE STAT NEGATIVE (NEGATIVE); METHAMPHETAMINE SCREEN URINE S NEGATIVE (NEGATIVE); OPIATE SCREEN URINE NEGATIVE (NEGATIVE); OXYCODONE STAT NEGATIVE (NEGATIVE); PROPOXYPHENE STAT NEGATIVE (NEGATIVE); TRICYCLIC ANTIDEPRESSANTS SCRE NEGATIVE (NEGATIVE)
[2021-10-04] MEDS: PROMETHAZINE INJ 25 MG/ML (PHENERGAN) AMP IVP PRN (01:45)
[2021-10-04] MEDS: methylPREDNISolone 40 MG/ML (Solu-MEDROL) VIAL IV SCH ×4 (01:46→20:25)
[2021-10-04 01:56] VITALS: BP 146/85
[2021-10-04] MEDS: METOCLOPRAMIDE INJ 10 MG/2 ML (REGLAN) IVP PRN (06:38)
[2021-10-04] MEDS: LORazepam INJ 2 MG/ML (ATIVAN) VIAL IVP PRN (06:38)
[2021-10-04 06:39] LABS: BASOPHILS # (AUTO) 0.1 10^3/uL (0.0-0.1); BASOPHILS % (AUTO) 0 % (0-10); EOSINOPHILS % (AUTO) 0 % (0-10); HEMATOCRIT 46 % (35-52); HEMOGLOBIN 16.3 g/dL (11.5-16.0); LYMPHOCYTES # (AUTO) 2.2 10^3/uL (1.0-4.0); LYMPHOCYTES % (AUTO) 13 % (12-44); MEAN CORPUSCULAR HEMOGLOBIN 32 pg (25-34); MEAN CORPUSCULAR HGB CONC 36 g/dL (32-36); MEAN CORPUSCULAR VOLUME 89 fL (80-99); MEAN PLATELET VOLUME 10.1 fL (9.0-12.2); MONOCYTES # (AUTO) 1.2 10^3/uL (0.0-1.0); MONOCYTES % (AUTO) 7 % (0-12); NEUTROPHILS % (AUTO) 80 % (42-75); PLATELET COUNT 322 10^3/uL (130-400); WHITE BLOOD COUNT 17.6 10^3/uL (4.3-11.0)
--- NOTE | 2021-10-04 06:50 | Antepartum Progress Note ---
Antepartum Progress Antepartum Progress Date Seen by Provider: Oct 04, 2021 Time Seen by Provider: 06:50 Hospital Day # 4 Interval History: After patient received IV reglan and ativan at 10AM on Monday, she had no more episodes of vomiting throughout the day. Patient has slept throughout the evening and only reported one episode of emesis. Of note, she did not receive reglan or ativan overnight. Subjective: Patient reports that she has had 3 episodes of emesis this morning; however, she did not inform her nurse as she has been asked to do. She states that she is striving to eat and feels as though she is not improving even though she did not have any episodes of emesis after recieving Reglan and Ativan on Monday. She ambulates in the room. She is not fully tolerating a clear diet as of yet. She reports having flatus and having a BM. No vaginal bleeding or cramping. Objective: Vital Signs 10/04/21 01:56 Temp 36.3 Pulse 95 Resp 18 B/P (MAP) 146/85 (105) Pulse Ox 100 O2 Delivery Room Air Physical Exam General - alert and oriented, no apparent distress Abdomen - Soft, gravid, non-tender to palpation Ext - non-tender to palpation, no edema, negative Vladimir's bilaterally heart tones: 186 Assessment: Lizet Su is a 25yo /Para 2 / 1001 at 7w6d by LMP consistent with 1st trimester US (completed in house), admitted with persistent nausea and vomiting in , likely due to hyperemesis gravidarum. Pt reports that her symptoms have improved with scheduled IV Methylprednisolone, IV Phenergan, IV Benadryl, IV reglan and PRN IV Ativan. Pt is on her 3rd and final day of Methylprednisolone. Concerned for an underlying mood disorder and Marijuana usage as a precipitating factor to her symptoms. Plan: Continue current plan. # Nausea/vomiting: - Daily labs: CBC, CMP, Mag, Phos with plans to replete electrolytes appropriately. Normal TSH and T4; no concerns for thyroid disease as an etiology of her symptoms. - Compazine discontinued. Methyprednisolone 16mg q8 hrs for 3 days started on HD#2 due to symptoms that have been refractory to standard antiemetics in accordance with ACOG Practice Bulletin. Phenergan 25mg q6hrs scheduled, benadryl 25mg q6 hrs scheduled, Pepcid 20mg BID, folic acid IV and liquid multivitamin. Thiamine is on back order and thus not available in house. Will start B6 and vitamins when patient is tolerating po intake. - Reglan 10mg q6hrs PRN and Ativan 1mg q6hrs PRN added for anxiety with improvement in symptoms. Will schedule Reglan. - If her symptoms persist, will consider transferring patient for further management. # Hypokalemia: Continue 40meq KCL at 125cc/hr. AM labs pending. # Diarrhea: Oral liquid Imodium ordered PRN. # Diet: Clear diet. Advance as tolerated. # 7.6 weeks gestation: Dating US completed today demonstrated pole measuring 8.2wga, this is consistent with LMP, so will keep original due date. Will continue to monitor tachycardia; though this is likely secondary to her clinical condition. # DVT ppx: Ambulation encouraged. SCDs in place when in bed. # Dispo: Will plan to prescribe a steroid taper upon discharge (50mg --> 40mg --> 30mg --> 20mg --> 10mg), pepcid 20mg BID (which has been sent to pharmacy), Diclegis daily for ppx (which has already been sent to her pharmacy by Dr. Plasencia), phenergan 25mg q6 hrs PRN, reglan 10mg q6hrs PRN and benadryl 25 mg q6hr PRN. Vitals - Labs Vital Signs - I&O Vital Signs Date Time Temp Pulse Resp B/P (MAP) Pulse Ox O2 Delivery O2 Flow Rate FiO2 10/04/21 01:56 36.3 95 18 146/85 (105) 100 Room Air 10/03/21 19:38 37.0 72 18 135/87 (103) 100 Room Air 10/03/21 15:30 36.8 78 18 148/86 (106) 100 Room Air 10/03/21 12:00 36.8 84 20 124/78 (93) 100 Room Air 10/03/21 08:47 36.9 89 18 114/63 (80) 98 Room Air Labs Laboratory Tests 10/03/21 12:05: White Blood Count 14.3H, Red Blood Count 4.78, Hemoglobin 14.9#, Hematocrit 42, Mean Corpuscular Volume 89, Mean Corpuscular Hemoglobin 31, Mean Corpuscular Hemoglobin Concent 35, Red Cell Distribution Width 12.5, Platelet Count 280, Mean Platelet Volume 10.2, Immature Granulocyte % (Auto) 1, Neutrophils (%) (Auto) 88H, Lymphocytes (%) (Auto) 8L, Monocytes (%) (Auto) 3, Eosinophils (%) (Auto) 0, Basophils (%) (Auto) 0, Neutrophils # (Auto) 12.6H, Lymphocytes # (Au to) 1.1, Monocytes # (Auto) 0.5, Eosinophils # (Auto) 0.0, Basophils # (Auto) 0.0, Immature Granulocyte # (Auto) 0.1, Neutrophils % (Manual) 91, Lymphocytes % (Manual) 8, Monocytes % (Manual) 1, Blood Morphology Comment NORMAL, Sodium Level 134L, Potassium Level 3.4L, Chloride Level 102, Carbon Dioxide Level 19L, Anion Gap 13, Blood Urea Nitrogen 4L, Creatinine 0.61, Estimat Glomerular Filtration Rate 126, BUN/Creatinine Ratio 7, Glucose Level 104, Calcium Level 9.4, Corrected Calcium 9.0, Phosphorus Level 3.2, Magnesium Level 2.1, Total B ilirubin 3.2H, Aspartate Amino Transf (AST/SGOT) 15, Alanine Aminotransferase (ALT/SGPT) 31, Alkaline Phosphatase 58, Total Protein 7.2, Albumin 4.5, Amylase Level 77, Lipase 20 10/03/21 20:00: Urine Opiates Screen NEGATIVE, Urine Oxycodone Screen NEGATIVE, Urine Methadone Screen NEGATIVE, Urine Propoxyphene Screen NEGATIVE, Urine Barbiturates Screen N EGATIVE, Ur Tricyclic Antidepressants Screen NEGATIVE, Urine Phencyclidine Screen NEGATIVE, Urine Amphetamines Screen NEGATIVE, Urine Methamphetamines Screen NEGATIVE, Urine Benzodiazepines Screen POSITIVEH, Urine Cocaine Screen NEGATIVE, Urine Cannabinoids Screen POSITIVEH 10/04/21 06:28: pending. BIBI CASTELLON MD Oct 04, 2021 06:50
[2021-10-04 06:59] LABS: ALBUMIN 4.5 GM/DL (3.2-4.5); POTASSIUM 3.6 MMOL/L (3.6-5.0)
[2021-10-04 07:01] LABS: CALCIUM 9.5 MG/DL (8.5-10.1)
[2021-10-04 07:02] LABS: TOTAL PROTEIN 7.5 GM/DL (6.4-8.2)
[2021-10-04 07:04] LABS: BILIRUBIN,TOTAL 2.9 MG/DL (0.1-1.0)
[2021-10-04 07:05] LABS: PHOSPHORUS 3.7 MG/DL (2.3-4.7)
[2021-10-04 07:06] LABS: CREATININE SERUM 0.61 MG/DL (0.60-1.30)
[2021-10-04 07:08] LABS: MAGNESIUM 2.1 MG/DL (1.6-2.4)
[2021-10-04 08:00] VITALS: BP 116/68
[2021-10-04] MEDS: FAMOTIDINE 20MG/2ML IV (PEPCID) IVP SCH ×2 (08:10→20:24)
[2021-10-04] MEDS: LACTATED RINGERS 1,000 ML IV SCH ×2 (08:10→14:32)
[2021-10-04] MEDS: FOLIC ACID INJECTION 1 MG in NS (IVPB) 50 ML IV SCH (11:44)
[2021-10-04 14:00] VITALS: BP 122/62
[2021-10-04] MEDS: METOCLOPRAMIDE INJ 10 MG/2 ML (REGLAN) IVP SCH ×2 (20:19→20:38)
[2021-10-04] MEDS ORDERED: CALCIUM CARBONATE 500 MG (TUMS) TAB.CHEW ONE (20:21)
[2021-10-04 20:25] VITALS: BP 135/79
[2021-10-04] MEDS: CALCIUM CARBONATE 500 MG (TUMS) TAB.CHEW PO PRN (20:25)
[2021-10-04] MEDS ORDERED: D5 LR IV SOLUTION 1,000 ML IV ONE (20:35)
[2021-10-04] MEDS: D5 LR IV SOLUTION 1,000 ML IV SCH (21:03)
[2021-10-05] MEDS: METOCLOPRAMIDE INJ 10 MG/2 ML (REGLAN) IVP SCH ×4 (02:30→22:24)
[2021-10-05] MEDS: D5 LR IV SOLUTION 1,000 ML IV SCH ×2 (05:45→17:13)
[2021-10-05] MEDS: PRENATAL VITAMIN 1 EA TAB PO SCH ×2 (07:00→07:56)
[2021-10-05] MEDS: CALCIUM CARBONATE 500 MG (TUMS) TAB.CHEW PO PRN ×2 (07:11→22:30)
[2021-10-05 07:51] LABS: BASOPHILS # (AUTO) 0.1 10^3/uL (0.0-0.1); BASOPHILS % (AUTO) 0 % (0-10); EOSINOPHILS % (AUTO) 0 % (0-10); HEMATOCRIT 45 % (35-52); HEMOGLOBIN 15.7 g/dL (11.5-16.0); LYMPHOCYTES # (AUTO) 2.6 10^3/uL (1.0-4.0); LYMPHOCYTES % (AUTO) 14 % (12-44); MEAN CORPUSCULAR HEMOGLOBIN 31 pg (25-34); MEAN CORPUSCULAR HGB CONC 35 g/dL (32-36); MEAN CORPUSCULAR VOLUME 89 fL (80-99); MONOCYTES # (AUTO) 1.2 10^3/uL (0.0-1.0); MONOCYTES % (AUTO) 7 % (0-12); NEUTROPHILS # (AUTO) 14.4 10^3/uL (1.8-7.8); NEUTROPHILS % (AUTO) 79 % (42-75); PLATELET COUNT 332 10^3/uL (130-400); WHITE BLOOD COUNT 18.4 10^3/uL (4.3-11.0)
[2021-10-05 08:20] LABS: ALBUMIN 4.4 GM/DL (3.2-4.5); CALCIUM 9.9 MG/DL (8.5-10.1); CREATININE SERUM 0.65 MG/DL (0.60-1.30); MAGNESIUM 1.8 MG/DL (1.6-2.4); PHOSPHORUS 3.8 MG/DL (2.3-4.7); POTASSIUM 3.7 MMOL/L (3.6-5.0); TOTAL PROTEIN 7.6 GM/DL (6.4-8.2)
[2021-10-05] MEDS: methylPREDNISolone 40 MG/ML (Solu-MEDROL) VIAL IV SCH ×2 (08:30→16:30)
[2021-10-05] MEDS: PYRIDOXINE (VITAMIN B-6) 50 MG TABLET PO SCH ×3 (09:00→22:17)
[2021-10-05] MEDS: FAMOTIDINE 20MG/2ML IV (PEPCID) IVP SCH ×2 (09:57→22:25)
[2021-10-05] MEDS: PROMETHAZINE INJ 25 MG/ML (PHENERGAN) AMP IVP PRN ×2 (10:01→16:08)
[2021-10-05] MEDS: diphenhydrAMINE 50 MG/ML INJ (BENADRYL) IVP SCH ×6 (10:04→22:36)
[2021-10-05] MEDS: FOLIC ACID INJECTION 1 MG in NS (IVPB) 50 ML IV SCH (10:13)
[2021-10-05 10:21] VITALS: BP 130/78
[2021-10-05] MEDS ORDERED: SCOPOLAMINE 1.5 MG (TRANSDERM-SCOP) PATCH TD NR (11:15)
[2021-10-05 12:24] VITALS: BP 132/67
[2021-10-05 16:18] VITALS: BP 129/77
[2021-10-05] MEDS ORDERED: SCOP1PAT10 TD (17:35)
--- NOTE | 2021-10-05 17:47 | Antepartum Progress Note ---
Antepartum Progress Antepartum Progress Date Seen by Provider: Oct 05, 2021 Time Seen by Provider: 11:30 Hospital Day # 5 Subjective: Patient did not have emesis yesterday, but this am has had several episodes of emesis. She was soundly sleeping when I visited today. Her mother states she had not slept well last night. But also has recently had IV benedryl and promethazine. Will start scopolamine patch and see her when she wakes up. Her mother states she feels better when she sits under a hot shower. States she takes them frequently at home and this helps. Patient did have + UDS for cannabis. in addition, bilirubin has remained elevated. Patient has had cholecystectomy for acalculous cholecystitis. I discussed this with Dr. Barba, who did her Jasmyne, and he stated that she may have sphincter of oddi spasm and this could resolve spontaneously. However, if she has continued symptoms, could refer to GI for ERCP. Objective: Laboratory Tests Test 10/05/21 07:45 Range/Units White Blood Count 18.4 H 4.3-11.0 10^3/uL Red Blood Count 5.05 3.80-5.11 10^6/uL Hemoglobin 15.7 11.5-16.0 g/dL Hematocrit 45 35-52 % Mean Corpuscular Volume 89 80-99 fL Mean Corpuscular Hemoglobin 31 25-34 pg Mean Corpuscular Hemoglobin Concent 35 32-36 g/dL Red Cell Distribution Width 12.9 10.0-14.5 % Platelet Count 332 130-400 10^3/uL Mean Platelet Volume 10.0 9.0-12.2 fL Immature Granulocyte % (Auto) 1 % Neutrophils (%) (Auto) 79 H 42-75 % Lymphocytes (%) (Auto) 14 12-44 % Monocytes (%) (Auto) 7 0-12 % Eosinophils (%) (Auto) 0 0-10 % Basophils (%) (Auto) 0 0-10 % Neutrophils # (Auto) 14.4 H 1.8-7.8 10^3/uL Lymphocytes # (Auto) 2.6 1.0-4.0 10^3/uL Monocytes # (Auto) 1.2 H 0.0-1.0 10^3/uL Eosinophils # (Auto) 0.0 0.0-0.3 10^3/uL Basophils # (Auto) 0.1 0.0-0.1 10^3/uL Immature Granulocyte # (Auto) 0.1 0.0-0.1 10^3/uL Sodium Level 136 135-145 MMOL/L Potassium Level 3.7 3.6-5.0 MMOL/L Chloride Level 101 98-107 MMOL/L Carbon Dioxide Level 21 21-32 MMOL/L Anion Gap 14 5-14 MMOL/L Blood Urea Nitrogen 5 L 7-18 MG/DL Creatinine 0.65 0.60-1.30 MG/DL Estimat Glomerular Filtration Rate 124 BUN/Creatinine Ratio 8 Glucose Level 103 70-105 MG/DL Calcium Level 9.9 8.5-10.1 MG/DL Corrected Calcium 9.6 8.5-10.1 MG/DL Phosphorus Level 3.8 2.3-4.7 MG/DL Magnesium Level 1.8 1.6-2.4 MG/DL Total Bilirubin 3.0 H 0.1-1.0 MG/DL Aspartate Amino Transf (AST/SGOT) 11 5-34 U/L Alanine Aminotransferase (ALT/SGPT) 26 0-55 U/L Alkaline Phosphatase 53 40-136 U/L Total Protein 7.6 6.4-8.2 GM/DL Albumin 4.4 3.2-4.5 GM/DL 10/05/21 10/05/21 10/05/21 10:21 12:24 16:18 Temp 36.6 36.9 36.7 Pulse 87 82 100 Resp 18 18 18 B/P (MAP) 130/78 (95) 132/67 (88) 129/77 (94) Pulse Ox 98 95 100 O2 Delivery Room Air Room Air Room Air 10/05/21 00:00 Intake Total 2000 ml Balance 2000 ml Physical Exam General - asleep Assessment: Lizet Su is a 25 /Para 2 1001,Gestational Age 8 weeks hyperemesis gravidarum - most likely complicated by cannabis cyclic emesis. elevated bilirubin possibly due to sphincter of oddi spasm hypokalemia - resolved Plan: Continue current plan. Add scopolamine patch Vitals - Labs Vital Signs - I&O Vital Signs Date Time Temp Pulse Resp B/P (MAP) Pulse Ox O2 Delivery O2 Flow Rate FiO2 10/05/21 16:18 36.7 100 18 129/77 (94) 100 Room Air 10/05/21 12:24 36.9 82 18 132/67 (88) 95 Room Air 10/05/21 10:21 36.6 87 18 130/78 (95) 98 Room Air 10/04/21 20:25 36.8 92 18 135/79 (97) 97 Room Air I & O 10/05/21 07:00 Intake Total 2000 ml Balance 2000 ml Labs Laboratory Tests 10/05/21 07:45: White Blood Count 18.4H, Red Blood Count 5.05, Hemoglobin 15.7, Hematocrit 45, Mean Corpuscular Volume 89, Mean Corpuscular Hemoglobin 31, Mean Corpuscular Hemoglobin Concent 35, Red Cell Distribution Width 12.9, Platelet Count 332, Mean Platelet Volume 10.0, Immature Granulocyte % (Auto) 1, Neutrophils (%) (Auto) 79H, Lymphocytes (%) (Auto) 14, Monocytes (%) (Auto) 7, Eosinophils (%) (Auto) 0, Basophils (%) (Auto) 0, Neutrophils # (Auto) 14.4H, Lymphocytes # (Auto) 2.6, Monocytes # (Auto) 1.2H, Eosinophils # (Auto) 0.0, Basophils # (Auto) 0.1, Immature Granulocyte # (Auto) 0.1, Sodium Level 136, Potassium Level 3.7, Chloride Level 101, Carbon Dioxide Level 21, Anion Gap 14, Blood Urea Nitrogen 5L, Creatinine 0.65, Estimat Glomerular Filtration Rate 124, BUN/Creatinine Ratio 8, Glucose Level 103, Calcium Level 9.9, Corrected Calcium 9.6, Phosphorus Level 3.8, Magnesium Level 1.8, Total Bilirubin 3.0H, Aspartate Amino Transf (AST/SGOT) 11, Alanine Aminotransferase (ALT/SGPT) 26, Alkaline Phosphatase 53, Total Protein 7.6, Albumin 4.4 LUCRECIA RUEDA DO Oct 05, 2021 17:47
[2021-10-05] MEDS ORDERED: LOPERAMIDE 2 MG (IMODIUM) TABLET PO PRN (18:00)
[2021-10-05 22:25] VITALS: BP 143/87
[2021-10-06] MEDS: D5 LR IV SOLUTION 1,000 ML IV SCH (01:07)
[2021-10-06] MEDS: methylPREDNISolone 40 MG/ML (Solu-MEDROL) VIAL IV SCH (01:07)
[2021-10-06 01:13] VITALS: BP 141/86
[2021-10-06] MEDS: PROMETHAZINE INJ 25 MG/ML (PHENERGAN) AMP IVP PRN (01:13)
[2021-10-06] MEDS: METOCLOPRAMIDE INJ 10 MG/2 ML (REGLAN) IVP SCH (04:39)
--- NOTE | 2021-10-06 07:51 | Antepartum Progress Note ---
Antepartum Progress Antepartum Progress Date Seen by Provider: Oct 06, 2021 Time Seen by Provider: 07:50 Hospital Day # 6 Discharge held yesterday due to awakening with multiple episodes of emesis. Beginning of diarrhea. Imodium started. She took 4 showers yesterday. All of these symptoms are consistent with cannabis hyperemesis syndrome. Treatment is cessation of cannabis. Subjective: Denies complaints. Activity: []. Tolerating regular diet without nausea or vomiting. Fetus is active. No loss of fluid, vaginal bleeding, or contractions. Objective: [] Physical Exam General - alert and oriented, no apparent distress Abdomen - Soft, gravid, non-tender to palpation Ext - non-tender to palpation, no edema, negative Vladimir's bilaterally heart tones: [] Tocometer: [] Assessment: Lizet Su is a (25 /Para 2 1,Gestational Age (wks) [] Plan: Continue current plan. vitamin daily. VTE prophylaxis: [] Vitals - Labs Vital Signs - I&O Vital Signs Date Time Temp Pulse Resp B/P (MAP) Pulse Ox O2 Delivery O2 Flow Rate FiO2 10/06/21 01:13 36.3 75 18 141/86 (104) 100 Room Air 10/05/21 22:25 36.6 114 18 143/87 (105) 100 Room Air 10/05/21 16:18 36.7 100 18 129/77 (94) 100 Room Air 10/05/21 12:24 36.9 82 18 132/67 (88) 95 Room Air 10/05/21 10:21 36.6 87 18 130/78 (95) 98 Room Air I & O 10/06/21 06:59 Intake Total 2490.2 ml Output Total 295 ml Balance 2195.2 ml LUCRECIA RUEDA DO Oct 06, 2021 07:51
[2021-10-06] MEDS ORDERED: PROM25SU44 RC (08:11)
[2021-10-06] MEDS ORDERED: ONDA4TAB11 PO (08:11)
[2021-10-06] MEDS ORDERED: FAMO20TA3 PO (08:11)
[2021-10-06] MEDS ORDERED: diphenhydrAMINE 25 MG TAB (BENADRYL) PO PRN (08:15)
[2021-10-06] MEDS ORDERED: METOCLOPRAMIDE 10 MG (REGLAN) TAB PO PRN (08:15)
[2021-10-06] MEDS ORDERED: PROMETHAZINE 25 MG (PHENERGAN) SUPP PR PRN (08:15)
--- NOTE | 2021-10-06 08:26 | Discharge Inst-Women's Service ---
Discharge Inst-Women's Serv Depart Medication/Instructions New, Converted or Re-Newed RX: Transmitted to Pharmacy Instructions use the scopalamine patch every three days use promethazine tablets or suppositories scheduled for the first few days benedryl (diphenhydramine) can be used with the promethazine Use reglan and or zofran (metoclopromide or ondansteron) as needed in addition to the above medications start diclegis 2 at bedtime. Ok to use 1 in the morning and 1 in the afternoon if necessary Final Diagnosis hyperemesis hypokalemia dehydration elevated bilirubin cannabis hyperemesis syndrome Problems Reviewed?: Yes Consults/Follow Up Additional Follow Up: Yes ([address] Plasencia. ) Activity Activity: Activity as Tolerated Driving Instructions: You May Drive NO SMOKING: NO SMOKING Nothing Inside Vagina: No Douching, No Bixby, No Tampons Diet Discharge Diet: Other Diet (start with BRAT (bananas, rice, applesause, toast and other bland foods/soups, etc)) Symptoms to Report to : Fever Over 101 Degrees F, Dizziness/Fainting, Nausea/Vomiting (excessive, unable to keep anything down for 24 hours) For Any Problems or Questions: Contact Your Physician LUCRECIA RUEDA DO Oct 06, 2021 08:26
[2021-10-06 08:30] VITALS: BP 135/93
[2021-10-06] MEDS ORDERED: FAMOTIDINE 20 MG (PEPCID) TABLET PO SCH (09:00)
== END 2021-10-06 10:50 | disposition home or self-care (01) | DRG 833 ==
LOC: EDUNIT# 13:22 → ER FS 13:23 → LDRP 18:46 → OBSVTOIN 10-04 13:49
PROVIDERS: ADMIT Obstetrics & Gynecology; ATTEND Obstetrics & Gynecology
DX: O21.1 Hyperemesis gravidarum with metabolic disturbance (principal); Z3A.01 Less than 8 weeks gestation of pregnancy; R19.7 Diarrhea, unspecified; E86.0 Dehydration; O26.891 Other specified pregnancy related conditions, first trimester
CPT/HCPCS: 36415; 76801; 80048; 80053; 80306; 81000; 82150; 83690; 83735; 84100; 84439; 84443; 85007; 85025; 85027; G0378

== ENCOUNTER → 2022-01-04 | Outpatient (CLI) | payer MEDICAID ==
[~2022-01-04] MED LIST changes: +FAMO20TA3 PO; +PRD10T MT; +PROM12.566 RC; +SCOP1PAT10 TD
--- NOTE | 2022-01-04 16:25 | Diagnostic Imaging Report ---
INDICATION: patient, survey. TECHNIQUE: Multiple real-time grayscale images were obtained over the gravid uterus. COMPARISON: None. FINDINGS: A single live intrauterine fetus is seen measuring 22 weeks 2 days in size with sonographic EDC of 05/08/2022. The fetus is in breech presentation. Placenta is anterior and marginal. Amniotic fluid was qualitatively normal. heart rate was 150 BPM. Cervical length is 5 cm. anatomical survey demonstrates normal-appearing kidneys and bladder. Normal-appearing intracranial ventricles were seen. stomach appeared normal. Four-chamber heart view was normal. Three-vessel cord and cord insertion appeared normal. Views of the spine were unremarkable. Maternal adnexa were not well seen but show no free fluid. Biometrical measurements are as follows: Biparietal 5.42 cm, age 22 weeks 4 days. Head circumference 19.68 cm, age 22 weeks 0 days. Abdominal circumference 17.28 cm, age 22 weeks 2 days. Femur length 3.73 cm, age 22 weeks 0 days. Sonographic estimate age: 22 weeks 2 days. Sonographic estimated date of delivery: 05/08/2022. Estimated Weight: 474 gm (+/- 69 gm). LMP percentile: 48%. heart rate: 150 beats per minute. number: 1 of 1. IMPRESSION: Single live intrauterine fetus measuring 22 weeks 2 days in size, as described above. There is no detectable abnormality. The placenta was anterior but appeared marginal, with tip near the internal cervical os. Suggest follow-up later in to further assess. Dictated by: Dictated on workstation # [id number]
== END ==
LOC: RAD 13:30
PROVIDERS: ATTEND Family Medicine
DX: Z34.92 Encounter for supervision of normal pregnancy, unspecified, second trimester (principal); Z3A.22 22 weeks gestation of pregnancy
CPT/HCPCS: 76805

== ENCOUNTER 2022-01-14 07:37 | Emergency (ER) | payer MEDICAID ==
[~2022-01-14] VITALS: Ht 162.6 cm; Wt 63.0 kg
[2022-01-14 07:48] VITALS: BP 129/76
[2022-01-14] MEDS ORDERED: ONDANSETRON 4 MG/2 ML (SDV) Z0FRAN IVP STA (07:50)
[2022-01-14] MEDS ORDERED: NS IV 1000 ML 1,000 ML IV STA (07:50)
--- NOTE | 2022-01-14 07:58 | ED GU-Female ---
General Chief Complaint: OB > 20 WEEKS Stated Complaint: CONTRACTIONS DURING PREG Source: patient, old records History of Present Illness Date Seen by Provider: January 14, 2022 Time Seen by Provider: 07:39 Initial Comments 26-year-old female presenting with complaints of nausea and vomiting during . She is approximately 23 weeks with an estimated delivery date of May 12. She states that they plan to do a repeat section for delivery. She is following with Dr. Palacios currently for her . She is a G2, P1 with 1 living child. She states that she has had a lot of problems with nausea and vomiting this entire . She has previously had to be admitted for IV fluids. She had gone to the clinic yesterday and got IV fluids. She restarted her scopolamine patch yesterday but has continued to throw up overnight. This morning she came to the emergency department because she felt like she was having contractions. She stated that she felt like she passed some mucus but has had no bleeding or gush of fluid. She denies pain with urination. She has had no fever or chills. She did try taking Zofran OTC at home but states after that she felt like she threw up more than before taking the dissolving pill.States she is losing weight with this . Timing/Duration: getting worse Severity/Quality: cramping Location: other (uterine) Activities at Onset: none Prior Genitourinary Problems: similar symptoms Sexual [place] History: greater than 2 months ago Associated Symptoms: abdominal pain (feels like she is having contractions); No diaphoresis, No dysuria, No fever/chills, No loss of bladder control, No lower back pain, No lumps, No mass; nausea/vomiting; No nocturia, No polyuria, No swelling, No syncope, No urinary frequency Allergies and Home Medications Allergies Coded Allergies: No Known Drug Allergies (Unverified , 11/13/18) Patient Home Medication List Home Medication List Reviewed: Yes Ondansetron (Ondansetron Odt) 4 Mg Tab.rapdis, 4 MG PO Q6H PRN for NAUSEA/VOMITING Prescribed by: TOM PARKS on 10/01/21 1545 Bei021/FA/Omega3/Dha/Fish Oil ( Gummies) 400 Mcg-32.5 Mg (25 Mg-7.5 Mg) Tab.chew, 2 EACH PO DAILY, (Reported) Entered as Reported by: ANNAMARIE OLIVO on 01/14/22 0944 Scopolamine (Transderm-Scop) 1 Each Patch.td72, 1 EACH TD Q72H Prescribed by: LUCRECIA RUEDA on 10/05/21 1735 Discontinued Medications Buspirone HCl (Buspirone HCl) 10 Mg Tablet, 10 MG PO HS, (Reported) Discontinued Reason: No Longer Taking Entered as Reported by: MICHAELA SANCHES on 12/23/20 1117 Famotidine (Acid Supervisor Liquid Yeast (FAMOTIDINE)) 20 Mg Tablet, 20 MG PO BID Discontinued Reason: No Longer Taking Prescribed by: LUCRECIA RUEDA on 10/06/21 0811 Multivitamin/Iron/Folic Acid (Centrum Women Tablet) 1 Each Tablet, 1 EACH PO HS, (Reported) Discontinued Reason: No Longer Taking Entered as Reported by: MICHAELA SANCHES on 12/23/20 1117 Ondansetron (Ondansetron Odt) 4 Mg Tab.rapdis, 4 MG PO Q6H PRN for N AUSEA/VOMITING-1ST LINE, (Reported) Discontinued Reason: No Longer Taking Entered as Reported by: MICHAELA SANCHES on 12/23/20 1117 Ondansetron (Ondansetron Odt) 4 Mg Tab.rapdis, 4 MG PO Q6H PRN for NAUSEA/VOMITING Discontinued Reason: No Longer Taking Prescribed by: LUCRECIA RUEDA on 10/06/21 0811 Pantoprazole Sodium (Pantoprazole Sodium) 40 Mg Tablet.dr, 40 MG PO DAILY, (Reported) Discontinued Reason: No Longer Taking Entered as Reported by: MICHAELA SANCHES on 12/23/20 1117 Prednisone (Prednisone) 10 Mg Tab, 10 MG MT AC Discontinued Reason: No Longer Taking Prescribed by: James Mancuso on 10/02/21 1159 Promethazine HCl (Promethazine Tablet) 25 Mg Tablet, 25 MG PO Q8H PRN for NAUSEA/VOMITING Discontinued Reason: No Longer Taking Prescribed by: LIZZIE LOVE on 09/29/21 1132 Promethazine HCl (Promethazine Suppository) 25 Mg Supp.rect, 25 MG RC Q6H PRN for NAUSEA/VOMITING Discontinued Reason: No Longer Taking Prescribed by: LUCRECIA RUEDA on 10/06/21 0811 Sertraline HCl (Sertraline HCl) 100 Mg Tablet, 100 MG PO HS, (Reported) Discontinued Reason: No Longer Taking Entered as Reported by: MICHAELA SANCHES on 12/23/20 1117 Review of Systems Review of Systems Constitutional: No chills; dizziness; No fever EENTM: no symptoms reported Respiratory: no symptoms reported Cardiovascular: no symptoms reported Gastrointestinal: see HPI Genitourinary: see HPI Musculoskeletal: no symptoms reported Skin: no symptoms reported Psychiatric/Neurological: Anxiety Past Kltnouu-Mzhafy-Pqlvvi Hx Patient Social History Tobacco Use?: No Use of E-Cig and/or Vaping dev: No Substance use?: No Alcohol Use?: No Immunizations Up To Date First/Initial COVID19 Vaccinat: Not currently vaccinated Second COVID19 Vaccination Erickson: Not currently vaccinated Third COVID19 Vaccination Date: Not currently vaccinated Seasonal Allergies Seasonal Allergies: No Past Medical History Surgery/Hospitalization HX: Cholecysectomy; x1, Hyperemesis, Gravidarum Surgeries: Yes (C/S 2018) Section, Gallbladder, Tonsillectomy Respiratory: No Cardiac: No Neurological: No Reproductive Disorders: No Female Reproductive Disorders: Denies Sexually Transmitted Disease: No HIV/AIDS: No Genitourinary: No Gastrointestinal: No Musculoskeletal: No Endocrine: No HEENT: No Cancer: No Psychosocial: No Integumentary: No Blood Disorders: No Family Medical History Depression Hypertension 19 MOTHER noncontributory Physical Exam Vital Signs Vital Signs - First Documented 01/14/22 07:48 Temp 36.8 Pulse 88 Resp 22 B/P (MAP) 129/76 (93) Pulse Ox 96 O2 Delivery Room Air Capillary Refill : Height, Weight, BMI Height: 5'4.00" Weight: 175lbs. 8.0oz. 79.516136io; 21.73 BMI Method:Stated General Appearance: moderate distress, thin, other (anxious) HEENT: PERRL/EOMI; No pharynx normal (dry mucous membranes) Neck: non-tender, full range of motion, supple, normal inspection Cardiovascular: normal peripheral pulses, regular rate, rhythm Respiratory: chest non-tender, lungs clear, normal breath sounds Gastrointestinal: normal bowel sounds, soft, no pulsatile mass, distended (gravid uterus); No guarding, No rebound, No tenderness Genital/Rectal: normal vaginal exam (cervix seems to be 1 cm dilated on my exam, but was difficult to find the cervix), other ( heart tones 144-148 bpm with doppler) Rectal: deferred Extremities: normal range of motion, non-tender, no pedal edema, no calf tenderness, normal capillary refill Neurologic/Psychiatric: material stockkeeper yard II-XII nml as tested, alert, oriented x 3, other (anxious and worried about her baby and the continued n/v) Skin: warm/dry Progress/Results/Core Measures Suspected Sepsis SIRS Temperature: Pulse: Respiratory Rate: Laboratory Tests 01/14/22 07:55: White Blood Count 14.2H Blood Pressure / Mean: Laboratory Tests 01/14/22 07:55: Creatinine 0.43L, Platelet Count 229, Total Bilirubin 1.0 Results/Orders Lab Results Laboratory Tests Test 01/14/22 07:40 01/14/22 07:55 Range/Units Urine Color YELLOW Urine Clarity TURBID Urine pH 8.5 5-9 Urine Specific [place] 1.015 L 1.016-1.022 Urine Protein NEGATIVE NEGATIVE Urine Glucose (UA) NEGATIVE NEGATIVE Urine Ketones 2+ H NEGATIVE Urine Nitrite NEGATIVE NEGATIVE Urine Bilirubin NEGATIVE NEGATIVE Urine Urobilinogen 0.2 < = 1.0 MG/DL Urine Leukocyte Esterase NEGATIVE NEGATIVE Urine RBC (Auto) NEGATIVE NEGATIVE Urine RBC NONE /HPF Urine WBC 0-2 /HPF Urine Squamous Epithelial Cells 25-50 H /HPF Urine Crystals PRESENT H /LPF Urine Amorphous Sediment LARGE ALAN PHOSPHATE H /LPF Urine Bacteria MODERATE H /HPF Urine Casts NONE /LPF Urine Mucus LARGE H /LPF Urine Culture Indicated NO White Blood Count 14.2 H 4.3-11.0 10^3/uL Red Blood Count 4.03 3.80-5.11 10^6/uL Hemoglobin 12.8 11.5-16.0 g/dL Hematocrit 36 35-52 % Mean Corpuscular Volume 88 80-99 fL Mean Corpuscular Hemoglobin 32 25-34 pg Mean Corpuscular Hemoglobin Concent 36 32-36 g/dL Red Cell Distribution Width 12.8 10.0-14.5 % Platelet Count 229 130-400 10^3/uL Mean Platelet Volume 9.8 9.0-12.2 fL Immature Granulocyte % (Auto) 1 % Neutrophils (%) (Auto) 82 H 42-75 % Lymphocytes (%) (Auto) 12 12-44 % Monocytes (%) (Auto) 5 0-12 % Eosinophils (%) (Auto) 1 0-10 % Basophils (%) (Auto) 0 0-10 % Neutrophils # (Auto) 11.7 H 1.8-7.8 10^3/uL Lymphocytes # (Auto) 1.6 1.0-4.0 10^3/uL Monocytes # (Auto) 0.7 0.0-1.0 10^3/uL Eosinophils # (Auto) 0.1 0.0-0.3 10^3/uL Basophils # (Auto) 0.0 0.0-0.1 10^3/uL Immature Granulocyte # (Auto) 0.1 0.0-0.1 10^3/uL Neutrophils % (Manual) 79 % Lymphocytes % (Manual) 13 % Monocytes % (Manual) 1 % Band Neutrophils 2 % Reactive Lymphocytes 5 % Platelet Estimate NORMAL Blood Morphology Comment NORMAL Sodium Level 134 L 135-145 MMOL/L Potassium Level 3.6 3.6-5.0 MMOL/L Chloride Level 103 98-107 MMOL/L Carbon Dioxide Level 20 L 21-32 MMOL/L Anion Gap 11 5-14 MMOL/L Blood Urea Nitrogen 5 L 7-18 MG/DL Creatinine 0.43 L 0.60-1.30 MG/DL Estimat Glomerular Filtration Rate 137 BUN/Creatinine Ratio 12 Glucose Level 87 70-105 MG/DL Calcium Level 8.7 8.5-10.1 MG/DL Corrected Calcium 8.8 8.5-10.1 MG/DL Total Bilirubin 1.0 0.1-1.0 MG/DL Aspartate Amino Transf (AST/SGOT) 12 5-34 U/L Alanine Aminotransferase (ALT/SGPT) 10 0-55 U/L Alkaline Phosphatase 66 40-136 U/L Total Protein 6.4 6.4-8.2 GM/DL Albumin 3.9 3.2-4.5 GM/DL Lipase 17 8-78 U/L My Orders Orders - TOM PARKS MD Comprehensive Metabolic Panel (01/14/22 07:50) Lipase (01/14/22 07:50) Ua Culture If Indicated (01/14/22 07:50) Ed Iv/Invasive Line Start (01/14/22 07:50) Cbc With Automated Diff (01/14/22 07:50) Heart Tones (01/14/22 07:50) Ns Iv 1000 Ml (Sodium Chloride 0.9%) (01/14/22 07:50) Ondansetron Injection (Zofran Injectio (01/14/22 07:50) Metoclopramide Injection (Reglan Injecti (01/14/22 08:05) Diphenhydramine Injection (Benadryl Inje (01/14/22 08:05) Manual Differential (01/14/22 07:55) Vital Signs/I&O 01/14/22 07:48 Temp 36.8 Pulse 88 Resp 22 B/P (MAP) 129/76 (93) Pulse Ox 96 O2 Delivery Room Air Capillary Refill : Progress Note #1: Progress Note I have ordered basic labs and urinalysis on the patient. Will obtain IV access and administer normal saline 1 L IV fluid bolus for hydration, Zofran 4 mg IV for nausea and vomiting. As she is seeming to have uterine irritability and could certainly be having uterine contractions, will call the on-call doctor for [facility] at [facility] about transfer to labor and delivery for IV fluids and nausea control. There is a need to do any monitoring for actual uterine contractions they will have the equipment there where as I do not. Since pt reports she is going to have Dr. Hager perform her repeat C Section will contact him as well in case he is going to be involved in her care on this episode. Progress Note #2: Progress Note 0801 d/w Dr. Mancuso for Obstetrics/Gynecology and she recommends IVF with Zofran and Reglan or Phenergan to try and see if that helps her n/v. If that gets her n/v controlled and labs look ok she may not need to come to Labor and Delivery as they would not hook her up to check for uterine contractions at 23 weeks. She did mention that if I felt she needed to come to L&D then she can be sent down and they will get her more fluids and try to control her n/v. Will check with Dr. Hager as well since he is the doctor that will be delivering the baby for a repeat C section. 0802 d/w Dr. Hager and he recommends labs to check and see if she is truly dehydrated. Give IVF and antiemetics. Perform a check on her cervix to ensure she is not dilated and about to deliver. If her specific gravity and labs do not support dehydration then she could likely go home and continue medicine and sipping fluids. I let him know I felt she needed at least a short stay hospital stay for hydration and nausea control. 0815 Dr. Hager called back and stated that he had not seen the patient for this and he was not involved in her care. She would need to be managed by Dr. Palacios and the auto self service station attendant ludlow machine operator provider if she is coming to [facility]. I thanked him for the update and noted that I will add this into the chart as well as contact Dr. Palacios about the patient. 08 voice message left for Dr. Palacios to call me back regarding the patient. 08 Dr. Palacios called back and updated her about the patient. She agreed that the n/v could be causing uterine irritability and may be causing some contractions. Updated her about the call back from Dr. Hager so she was aware that if the patient was wanting to follow with him for repeat C Section she may have to transfer care now rather than wait until the last 4-[address] Palacios mentioned that the patient had a lot of trouble with hyperemesis with this and they had been able to wean down her meds but she may have to be increased back on some of the anti-emetics to get better control of her n/v and weight loss. Progress Note #3: Progress Note Labs show mild elevation of WBC to 14.2 which is down from her previous CBC. Chemistry shows mild hyponatremia at 134 that is stable from prior labs. CO2 of 20. BUN 5 and Cr 0.43. UA came back with specific gravity of 1.015, Ketones 2+, Sediment and bacteria with mucous present as well. With her still having dry heaves and wretching despite medicine here in the ED as well as continued uterine irritability will proceed with transfer to labor and delivery for further hydration and management beyond what I have available here in the stand alone ED. Progress Note #4: Time: 14:01 Progress Note Review of records from labor and delivery show that the patient received additional fluids and medicine and was able to rest some in addition to eat crackers and chicken noodle soup. She was feeling better and keeping things down so she was discharged to home in improved condition by Dr. Mancuso from Labor and Delivery floor. Departure Impression Primary Impression: Hyperemesis gravidarum, antepartum Additional Impression: Uterine irritability Disposition: HOME, SELF-CARE Condition: Stable Departure-Patient Inst. Decision time for Depature: 14:01 Referrals: CURRY PALACIOS MD (PCP) Primary Care Physician Patient Instructions: Nausea and Vomiting of , Hyperemesis Gravidarum (DC) Add. Discharge Instructions: see instructions and information from Labor and Delivery by Dr. Mancuso All discharge instructions reviewed with patient and/or family. Voiced understanding. TOM PARKS MD January 14, 2022 07:58
[2022-01-14 08:04] LABS: BASOPHILS % (AUTO) 0 % (0-10); EOSINOPHILS # (AUTO) 0.1 10^3/uL (0.0-0.3); EOSINOPHILS % (AUTO) 1 % (0-10); HEMATOCRIT 36 % (35-52); HEMOGLOBIN 12.8 g/dL (11.5-16.0); LYMPHOCYTES # (AUTO) 1.6 10^3/uL (1.0-4.0); LYMPHOCYTES % (AUTO) 12 % (12-44); MEAN CORPUSCULAR HEMOGLOBIN 32 pg (25-34); MEAN CORPUSCULAR HGB CONC 36 g/dL (32-36); MEAN CORPUSCULAR VOLUME 88 fL (80-99); MEAN PLATELET VOLUME 9.8 fL (9.0-12.2); MONOCYTES # (AUTO) 0.7 10^3/uL (0.0-1.0); MONOCYTES % (AUTO) 5 % (0-12); NEUTROPHILS # (AUTO) 11.7 10^3/uL (1.8-7.8); NEUTROPHILS % (AUTO) 82 % (42-75); PLATELET COUNT 229 10^3/uL (130-400); WHITE BLOOD COUNT 14.2 10^3/uL (4.3-11.0)
[2022-01-14] MEDS ORDERED: diphenhydrAMINE 50 MG/ML INJ (BENADRYL) IVP STA (08:05)
[2022-01-14] MEDS ORDERED: METOCLOPRAMIDE INJ 10 MG/2 ML (REGLAN) IVP STA (08:05)
[2022-01-14 08:17] LABS: BILIRUBIN,URINE NEGATIVE (NEGATIVE); CLARITY,URINE TURBID; COLOR,URINE YELLOW; GLUCOSE, URINE (UA) NEGATIVE (NEGATIVE); KETONES,URINE 2+ (NEGATIVE); LEUKOCYTE ESTERASE ,URINE NEGATIVE (NEGATIVE); NITRITE,URINE NEGATIVE (NEGATIVE); PH,URINE 8.5 (5-9); PROTEIN,URINE NEGATIVE (NEGATIVE)
[2022-01-14 08:20] LABS: POTASSIUM 3.6 MMOL/L (3.6-5.0)
[2022-01-14 08:21] LABS: ALBUMIN 3.9 GM/DL (3.2-4.5); CALCIUM 8.7 MG/DL (8.5-10.1); CREATININE SERUM 0.43 MG/DL (0.60-1.30); TOTAL PROTEIN 6.4 GM/DL (6.4-8.2)
[2022-01-14 08:30] LABS: BACTERIA,URINE MODERATE /HPF; WBC,URINE 0-2 /HPF
[2022-01-14 08:31] LABS: AMORPHOUS SEDIMENT,UR LARGE AMOR PHOSPHATE /LPF; SQUAMOUS EPITHELIAL CELL,UR 25-50 /HPF
[2022-01-14 08:42] LABS: BAND NEUTROPHILS 2 %; LYMPHOCYTES % (MANUAL) 13 %; MONOCYTES % (MANUAL) 1 %; NEUTROPHILS % (MANUAL) 79 %; PLATELET ESTIMATE NORMAL; RBC MORPH NORMAL; REACTIVE LYMPHOCYTES 5 %
[2022-01-14] MEDS ORDERED: PNV11TAB5 PO (09:44)
== END 2022-01-14 08:30 | disposition still patient (30) ==
LOC: EDUNIT# 07:37 → ER FS 07:38
DX: O21.1 Hyperemesis gravidarum with metabolic disturbance (principal); O60.02 Preterm labor without delivery, second trimester; O99.112 Other diseases of the blood and blood-forming organs and certain disorders involving the immune mechanism complicating pregnancy, second trimester; D72.829 Elevated white blood cell count, unspecified; Z28.310 Unvaccinated for COVID-19; Z3A.23 23 weeks gestation of pregnancy
CPT/HCPCS: 36415; 80053; 81000; 83690; 85007; 85027

== ENCOUNTER 2022-01-14 09:00 | Outpatient (CLI) | payer MEDICAID ==
[~2022-01-14] VITALS: Ht 162.6 cm; Wt 63.1 kg
[2022-01-14 09:00] VITALS: BP 119/58
[2022-01-14] MEDS ORDERED: PNV11TAB5 PO (09:44)
[2022-01-14] MEDS ORDERED: LACTATED RINGERS 1,000 ML IV ONE (10:30)
[2022-01-14] MEDS ORDERED: ONDANSETRON 4 MG/2 ML (SDV) Z0FRAN IVP PRN (11:15)
[2022-01-14] MEDS ORDERED: PROMETHAZINE 25 MG (PHENERGAN) SUPP PR PRN (11:15)
[2022-01-14] MEDS ORDERED: METOCLOPRAMIDE INJ 10 MG/2 ML (REGLAN) IVP SCH (12:00)
[2022-01-14 12:16] VITALS: BP 107/58
--- NOTE | 2022-01-14 14:00 | OB Triage Report ---
Standard Progress Note Progress Notes/Assess & Plan Date Seen by a Provider: January 14, 2022 Time Seen by a Provider: 13:54 Expected Date of Delivery: May 10, 2022 Gestational Age in Weeks: 23 Gestational Age in Days: 3 LMP/NEAL Comment: N/A Progress/Assessment & Plan Lizet Su is a 26 yo female at 23w3d who presented as a transport of care from [facility] due to concerns for abdominal pain in the setting of persistent nausea and vomiting since yesterday evening. In the ED, she was given oral zofran with plans for administration of IV zofran and reglan. She complained of abdominal pain and the ED transferred her to [facility] L&D due to concerns for labor. She sees Dr. Plasencia for her care. O: VS - Last 72 Hours, by Label 01/14/22 01/14/22 09:00 12:16 Temp 36.1 36.7 Pulse 65 66 Resp 18 18 B/P (MAP) 107/58 (74) Pulse Ox 100 100 O2 Delivery Room Air Room Air FHT: 140s TOCO: quiet CE: 1cm on external os, closed internal os/long/high A/P: Lizet Su is a 26 yo female at 23w3d, here for r/o labor and c/o persistent nausea and vomiting. # Contractions: tocometer was quiet after 20 minutes on monitoring. # Nausea and vomiting: Improved following 2 dose of IV reglan, zofran and one 12.5mg of phenergan suppository. The medications were administered between [facility] and our L&D. Patient passed her po challenge and was able to keep down crackers and chicken soup. - Electrolytes were normal with no concerns for severe dehydration requiring repletion. Large ketones noted on urine dipstick; however, patient can hydrate orally from an outpatient standpoint. # Dispo: Will discharge home with plans for close follow-up in [address] Vadim goldberg. Final Diagnosis Nausea and vomiting in 23 weeks gestation False labor BIBI CASTELLON MD January 14, 2022 14:00
== END 2022-01-14 14:02 ==
LOC: WSo 09:00 → LDRP 09:00 → WSo 14:02
PROVIDERS: ATTEND Obstetrics & Gynecology
DX: O21.9 Vomiting of pregnancy, unspecified (principal); O47.02 False labor before 37 completed weeks of gestation, second trimester; Z3A.23 23 weeks gestation of pregnancy

== ENCOUNTER → 2022-02-22 | Outpatient (CLI) | payer MEDICAID ==
[~2022-02-22] MED LIST changes: +PNV11TAB5 PO
[2022-02-22 15:44] LABS: HEMATOCRIT 35 % (35-52); HEMOGLOBIN 11.8 g/dL (11.5-16.0); MEAN CORPUSCULAR HEMOGLOBIN 31 pg (25-34); MEAN CORPUSCULAR HGB CONC 34 g/dL (32-36); MEAN CORPUSCULAR VOLUME 92 fL (80-99); PLATELET COUNT 302 10^3/uL (130-400); WHITE BLOOD COUNT 11.6 10^3/uL (4.3-11.0)
== END ==
LOC: LAB FS 14:43
PROVIDERS: ATTEND Family Medicine
DX: Z34.93 Encounter for supervision of normal pregnancy, unspecified, third trimester (principal); Z3A.28 28 weeks gestation of pregnancy
CPT/HCPCS: 36415; 82950; 85027; 86780

== ENCOUNTER → 2022-03-09 | Outpatient (CLI) | payer MEDICAID ==
--- NOTE | 2022-03-10 14:30 | Diagnostic Imaging Report ---
EXAM: OB ULTRASOUND ABDOMEN LIMITED. DATE: March 09, 2022. COMPARISON: January 04, 2022. October 02, 2021. INDICATION: 26-year-old female, placenta previa. FINDINGS: Multiple grayscale sonographic images were obtained of the gravid uterus. Overview: Within the uterus there is a single living gestation in cephalic position. There is positive movement and heart motion. heart rate was identified at 136 beats per minute. The amnionic fluid volume is subjectively normal. The placenta is anterior and without previa. The placental tip currently measures 6.3 cm from the cervical os. The cervical length is 3.3 cm. IMPRESSION: 1. Single living intrauterine . Gestational age based on last menstrual period is 30 weeks and 2 days +/- 1 week. measurements were not made on the current study. 2. The placenta is anterior and without current evidence of placenta previa. Dictated by: Dictated on workstation # [id number]
== END ==
LOC: RAD 15:07
PROVIDERS: ATTEND Family Medicine
DX: O44.23 Partial placenta previa NOS or without hemorrhage, third trimester (principal); Z3A.30 30 weeks gestation of pregnancy
CPT/HCPCS: 76816

== ENCOUNTER 2022-04-21 05:33 | Outpatient (CLI) | payer MEDICAID ==
[~2022-04-21] VITALS: Ht 162.6 cm; Wt 73.5 kg
== END 2022-04-25 12:43 ==
LOC: PREOP 05:33
PROVIDERS: ATTEND Obstetrics & Gynecology
DX: Z01.818 Encounter for other preprocedural examination (principal); O82 Encounter for cesarean delivery without indication; Z3A.00 Weeks of gestation of pregnancy not specified

== ENCOUNTER 2022-04-21 10:04 | Outpatient (CLI) | payer MEDICAID ==
[2022-04-21 10:00] VITALS: BP 137/78
[2022-04-21 10:20] VITALS: BP 129/74
[2022-04-21 10:26] LABS: BILIRUBIN,URINE NEGATIVE (NEGATIVE); CLARITY,URINE CLEAR; COLOR,URINE YELLOW; GLUCOSE, URINE (UA) NEGATIVE (NEGATIVE); KETONES,URINE NEGATIVE (NEGATIVE); LEUKOCYTE ESTERASE ,URINE TRACE (NEGATIVE); NITRITE,URINE NEGATIVE (NEGATIVE); PROTEIN,URINE NEGATIVE (NEGATIVE)
[2022-04-21 10:30] VITALS: BP 133/81
[2022-04-21 10:46] LABS: BACTERIA,URINE TRACE /HPF; WBC,URINE RARE /HPF
[2022-04-21 10:50] VITALS: BP 127/67
[2022-04-21] MEDS ORDERED: ACETAMINOPHEN 500 MG TAB (TYLENOL) PO ONE (11:15)
--- NOTE | 2022-04-22 08:22 | Physician Query-Final Dx ---
KENZIE,04/22/22 0822: Clinic Account Progress/Dx Physician Query: Please give diagnosis Please include # weeks gestation Date of Service Apr 21, 2022 at 10:04 CHARLES RICE DO 04/25/22 0716: Clinic Account Progress/Dx DIAGNOSIS: Diagnosis 36 week IUP, Left sided flank pain KENZIE,AugApr 22, 2022 08:22 CHARLES RICE DO Apr 25, 2022 07:16
== END 2022-04-21 11:25 | disposition home or self-care (01) ==
LOC: WSo 10:04 → LDRP 10:04 → WSo 11:25
PROVIDERS: ATTEND Obstetrics & Gynecology
DX: O26.899 Other specified pregnancy related conditions, unspecified trimester (principal); R10.9 Unspecified abdominal pain; Z3A.00 Weeks of gestation of pregnancy not specified
CPT/HCPCS: 81000; 87088; 99213

== ENCOUNTER 2022-04-29 07:50 | Inpatient (IN) | payer MEDICAID ==
[2022-04-29] VITALS (11 sets, daily range): BP systolic 121–147; BP diastolic 58–98
[~2022-04-29] VITALS: Ht 162.6 cm; Wt 71.1 kg
[2022-04-29] MEDS ORDERED: DOCU-143 PO (08:28)
[2022-04-29] MEDS ORDERED: IBUP-1780 PO (08:28)
[2022-04-29] MEDS ORDERED: OXYC1TAB12 PO (08:28)
--- NOTE | 2022-04-29 08:29 | Discharge Inst-Surgical ---
Discharge Inst-Surgical Depart Medication/Instructions New, Converted or Re-Newed RX: Transmitted to Pharmacy Consults/Follow Up Patient Instructions: As directed Orders & Referrals Follow Up Appt: RTC 1 week for incision check. Call to make follow up appt. for patient in 4 weeks. Wound Care: Remove alli, apply benzoin and steri strips. Activity Per routine post instructions. Prescriptions for Percocet Motrin and Colace have been sent to patient's [facility] Diet as tolerated Patient may shower or tub bathe as desired. Continue home meds Activity Activity as Tolerated: No Diet Discharge Diet: No Restrictions DUC LUNA MD Apr 29, 2022 08:29
[2022-04-29] MEDS ORDERED: D5 LR IV SOLUTION 1,000 ML IV SCH ×2 (08:30→11:30)
[2022-04-29] MEDS ORDERED: ceFAZolin INJECTION 2,000 MG in NS (IVPB) 50 ML IV NR ×2 (08:30→09:00)
[2022-04-29] MEDS ORDERED: metroNIDAZOLE 500MG/100ML IVPB 100 ML IV NR ×2 (08:30→09:00)
[2022-04-29] MEDS ORDERED: METOCLOPRAMIDE INJ 10 MG/2 ML (REGLAN) IV ONE (08:45)
[2022-04-29] MEDS ORDERED: CITRIC ACID/SOB CIT (BICITRA) 30 ML UDC PO ONE (08:45)
[2022-04-29] MEDS ORDERED: FAMOTIDINE 20MG/2ML IV (PEPCID) IV ONE (08:45)
[2022-04-29] MEDS: LACTATED RINGERS 1,000 ML IV PRN (08:50)
[2022-04-29 08:51] LABS: BASOPHILS # (AUTO) 0.1 10^3/uL (0.0-0.1); BASOPHILS % (AUTO) 0 % (0-10); EOSINOPHILS # (AUTO) 0.1 10^3/uL (0.0-0.3); EOSINOPHILS % (AUTO) 1 % (0-10); HEMATOCRIT 36 % (35-52); HEMOGLOBIN 12.6 g/dL (11.5-16.0); LYMPHOCYTES # (AUTO) 1.4 10^3/uL (1.0-4.0); LYMPHOCYTES % (AUTO) 13 % (12-44); MEAN CORPUSCULAR HEMOGLOBIN 31 pg (25-34); MEAN CORPUSCULAR HGB CONC 35 g/dL (32-36); MEAN CORPUSCULAR VOLUME 89 fL (80-99); MEAN PLATELET VOLUME 10.1 fL (9.0-12.2); MONOCYTES % (AUTO) 9 % (0-12); NEUTROPHILS # (AUTO) 8.5 10^3/uL (1.8-7.8); NEUTROPHILS % (AUTO) 76 % (42-75); PLATELET COUNT 238 10^3/uL (130-400); WHITE BLOOD COUNT 11.2 10^3/uL (4.3-11.0)
--- NOTE | 2022-04-29 09:53 | History & Physical ---
History and Physical Date Seen by Provider: Apr 29, 2022 Time Seen by Provider: 09:47 This patient is a 26-year-old 2 para 1 female patient who presents at 38-5/7 weeks gestation with a history of PIH and previous . She is admitted now for repeat delivery. She denies rupture membranes or bleeding she has no bowel or bladder complaints.She has had no problems with this pregnancyTo date. Allergies are none Vital Signs Date Time Temp Pulse Resp B/P (MAP) Pulse Ox O2 Delivery O2 Flow Rate FiO2 04/29/22 07:45 37.1 87 18 99 Room Air Medications are vitamins Medical social and surgical histories are per the antepartum record HEENT exam is normal Neck is supple no lymphadenopathy no thyromegaly Abdomen is gravid soft nontender nondistended Extremities show no clubbing or cyanosis. There is no Homans' sign. Pelvic exam is deferred Laboratory Tests Test 04/29/22 08:00 Range/Units White Blood Count 11.2 H 4.3-11.0 10^3/uL Red Blood Count 4.01 3.80-5.11 10^6/uL Hemoglobin 12.6 11.5-16.0 g/dL Hematocrit 36 35-52 % Mean Corpuscular Volume 89 80-99 fL Mean Corpuscular Hemoglobin 31 25-34 pg Mean Corpuscular Hemoglobin Concent 35 32-36 g/dL Red Cell Distribution Width 13.2 10.0-14.5 % Platelet Count 238 130-400 10^3/uL Mean Platelet Volume 10.1 9.0-12.2 fL Immature Granulocyte % (Auto) 1 % Neutrophils (%) (Auto) 76 H 42-75 % Lymphocytes (%) (Auto) 13 12-44 % Monocytes (%) (Auto) 9 0-12 % Eosinophils (%) (Auto) 1 0-10 % Basophils (%) (Auto) 0 0-10 % Neutrophils # (Auto) 8.5 H 1.8-7.8 10^3/uL Lymphocytes # (Auto) 1.4 1.0-4.0 10^3/uL Monocytes # (Auto) 1.0 0.0-1.0 10^3/uL Eosinophils # (Auto) 0.1 0.0-0.3 10^3/uL Basophils # (Auto) 0.1 0.0-0.1 10^3/uL Immature Granulocyte # (Auto) 0.1 0.0-0.1 10^3/uL Assessment and plan 38-week gestation with PIH and previous admitted for repeat delivery 38+ weeks gestation with PIH admitted for repeat delivery Allergies and Home Medications Allergies Coded Allergies: No Known Drug Allergies (Unverified , 11/13/18) Patient Home Medication List Home Medication List Reviewed: Yes Docusate Sodium (Colace) 100 Mg Capsule, 100 MG PO BID Prescribed by: DUC RANDOLPH on 04/29/22827 Ibuprofen (Ibuprofen) 800 Mg Tablet, 800 MG PO Q6H PRN for PAIN Prescribed by: DUC RANDOLPH on 04/29/22827 Oxycodone HCl/Acetaminophen (Percocet 10-325 mg Tablet) 1 Each Tablet, 1 TAB PO Q4H PRN for PAIN-MODERATE Prescribed by: DUC RANDOLPH on 04/29/22827 Xpf924/FA/Omega3/Dha/Fish Oil ( Gummies) 400 Mcg-32.5 Mg (25 Mg-7.5 Mg) Tab.chew, 2 EACH PO DAILY, (Reported) Entered as Reported by: ANNAMARIE OLIVO on 01/14/2244 DUC LUNA MD Apr 29, 2022 09:53
[2022-04-29] MEDS ORDERED: fentaNYL INJ 100 MCG/2 ML AMP ONE (10:00)
[2022-04-29] MEDS ORDERED: OXYTOCIN PRE-MIX DRIP 1,000 ML IV ONE (10:01)
[2022-04-29] MEDS ORDERED: PHENYLEPHRINE 100 MCG/ML 10 ML (ANESTHESIA) SYR ONE (11:04)
[2022-04-29] MEDS ORDERED: BUPIVACAINE 0.5% 30 ML (SENSORCAINE) VIAL ONE (11:21)
[2022-04-29] MEDS ORDERED: TETANUS,DIPTH,PERTUSS P/F (BOOSTRIX) 0.5 ML VIAL IM ONE (11:30)
[2022-04-29] MEDS ORDERED: OXYTOCIN PRE-MIX DRIP 500 ML IV SCH (11:30)
[2022-04-29] MEDS ORDERED: fentaNYL INJ 100 MCG/2 ML AMP IVP PRN (11:30)
[2022-04-29] MEDS: KETOROLAC 30 MG/ML VIAL IV SCH ×2 (12:12→18:38)
[2022-04-29] MEDS: oxyCODONE/APAP 10/325MG (PERCOCET 10) TABLET PO PRN ×3 (14:13→20:22)
--- NOTE | 2022-04-29 18:16 | OPERATIVE REPORT ---
DATE OF SERVICE: 04/29/2022 PREOPERATIVE DIAGNOSES: Term at 38 plus weeks' gestation with PIH and previous . POSTOPERATIVE DIAGNOSES: Term at 38 plus weeks' gestation with PIH and previous . OPERATIVE PROCEDURE: Repeat low transverse delivery of a viable female infant with Apgars of 6 and 7 at 1 and 5 minutes respectively, weight of 5 pounds 5 ounces. Cord blood pH of 7.25 and time of 10:40. OPERATIVE DESCRIPTION: With the patient in the supine position under satisfactory spinal analgesia, the patient was prepped and draped in the usual fashion for abdominal surgery. Crawley catheter was placed in the urinary bladder. A repeat Pfannenstiel incision was made through the skin with scalpel, the patient's abdomen was entered in the usual manner. Bladder retractor was placed in position. A clean scalpel was used to make a 4 cm hysterotomy incision transversely across the lower uterine segment. The entry passed through the margin of the placenta. Jimenez forceps were applied to facilitate the delivery of the vigorous viable female with Apgars and stats as noted above. The was bulb suctioned on delivery of the head and again on completion of the delivery. The umbilical cord was doubly clamped and cut and the passed to the pediatric nurse in attendance for delivery. Cord bloods were obtained. Placenta delivered spontaneously Flood. It was normal with a 3-vessel cord. The uterus was exteriorized and interior wiped clean with a wet laparotomy sponge. Uterine incision was then closed with a running locked suture of 2-0 Vicryl. Hemostasis was complete. The uterus was returned to the abdominal cavity. All blood clot and debris removed from the abdominal cavity. With sponge and needle counts correct and hemostasis assured, the anterior parietal peritoneum was closed with running suture of 2-0 Vicryl. The rectus muscles were closed with that suture as well. The rectus fascia was closed with 2-0 Vicryl, subcutaneous tissue was closed with 2-0 Vicryl and the skin was stapled. Sponge and needle counts were correct on completion of the procedure. Blood loss was around 500 mL. The patient tolerated the procedure well and was transferred to the recovery room in a stable condition. The infant remained at the bedside in the warmer with the pediatric nurse. Job ID: [id number] DocumentID: [id number] Dictated Date: 04/29/2022 11:05:04 Binding Folder Machine Date: 04/29/2022 18:15:03 Dictated By: DUC LUNA MD
[2022-04-29] MEDS: DOCUSATE SODIUM 100 MG (COLACE) CAP PO SCH (20:22)
[2022-04-30] MEDS: KETOROLAC 30 MG/ML VIAL IV SCH ×2 (00:05→06:06)
[2022-04-30 00:10] VITALS: BP 148/72
[2022-04-30] MEDS: oxyCODONE/APAP 10/325MG (PERCOCET 10) TABLET PO PRN ×5 (01:44→21:57)
[2022-04-30 04:00] VITALS: BP 125/58
[2022-04-30 08:15] VITALS: BP 124/79
[2022-04-30] MEDS: DOCUSATE SODIUM 100 MG (COLACE) CAP PO SCH ×2 (08:16→21:00)
--- NOTE | 2022-04-30 09:31 | Progress Note ---
Standard Progress Note Progress Notes/Assess & Plan Date Seen by a Provider: Apr 30, 2022 Time Seen by a Provider: 09:30 Progress/Assessment & Plan This patient is without complaint. She is ambulating, voiding, tolerating oral intake well and has good pain control. Vital Signs Date Time Temp Pulse Resp B/P (MAP) Pulse Ox O2 Delivery O2 Flow Rate FiO2 04/30/22 08:15 36.6 77 18 124/79 (94) 100 Room Air 04/30/22 04:00 36.0 98 18 125/58 (80) 98 Room Air 04/30/22 00:10 36.2 94 18 148/72 (97) 98 Room Air 04/29/22 20:10 36.7 75 18 125/58 (80) 98 Room Air 04/29/22 18:38 36.9 79 131/66 (87) Room Air 04/29/22 14:49 Room Air 04/29/22 14:15 36.9 78 18 129/78 (95) 99 Room Air 04/29/22 13:11 37.0 84 18 147/79 (101) 99 Room Air 04/29/22 12:00 36.0 16 126/78 (94) 99 Room Air 04/29/22 12:00 36.0 98 16 124/98 (107) 98 Room Air 04/29/22 11:45 36.1 16 126/78 (94) 99 Room Air 04/29/22 11:25 36.1 16 129/83 (98) 99 Room Air 04/29/22 11:07 36.2 16 121/61 (81) 99 Room Air 04/29/22 10:09 36.9 90 18 130/74 (92) 99 Room Air I & O 04/30/22 07:00 Intake Total 4650 ml Output Total 1425 ml Balance 3225 ml Vital signs are relatively stable patient is afebrile. The abdomen is benign. The surgical incisions clean dry and intact. Extremities show no clubbing cyanosis. There is no Homans' sign. Assessment and plan Postoperative day 1 status post repeat delivery doing well. Plan is for Routine convalescent Care DUC LUNA MD Apr 30, 2022 09:31
[2022-04-30 12:10] VITALS: BP 123/75
[2022-04-30] MEDS: IBUPROFEN 800 MG (MOTRIN) TAB PO SCH ×2 (12:11→17:53)
[2022-04-30 17:53] VITALS: BP 137/75
[2022-05-01] VITALS: BP 126/72
[2022-05-01] MEDS: IBUPROFEN 800 MG (MOTRIN) TAB PO SCH ×2 (00:06→06:09)
[2022-05-01] MEDS: oxyCODONE/APAP 10/325MG (PERCOCET 10) TABLET PO PRN ×3 (02:08→10:26)
[2022-05-01 06:16] VITALS: BP 126/65
[2022-05-01] MEDS: DOCUSATE SODIUM 100 MG (COLACE) CAP PO SCH (08:10)
--- NOTE | 2022-05-01 09:36 | Progress Note ---
Standard Progress Note Progress Notes/Assess & Plan Date Seen by a Provider: May 01, 2022 Time Seen by a Provider: 09:35 Progress/Assessment & Plan This patient is without complaint. She is ambulating, voiding, tolerating oral intake well and has good pain control. Vital Signs Date Time Temp Pulse Resp B/P (MAP) Pulse Ox O2 Delivery O2 Flow Rate FiO2 04/30/22 08:15 36.6 77 18 124/79 (94) 100 Room Air 04/30/22 04:00 36.0 98 18 125/58 (80) 98 Room Air 04/30/22 00:10 36.2 94 18 148/72 (97) 98 Room Air 04/29/22 20:10 36.7 75 18 125/58 (80) 98 Room Air 04/29/22 18:38 36.9 79 131/66 (87) Room Air 04/29/22 14:49 Room Air 04/29/22 14:15 36.9 78 18 129/78 (95) 99 Room Air 04/29/22 13:11 37.0 84 18 147/79 (101) 99 Room Air 04/29/22 12:00 36.0 16 126/78 (94) 99 Room Air 04/29/22 12:00 36.0 98 16 124/98 (107) 98 Room Air 04/29/22 11:45 36.1 16 126/78 (94) 99 Room Air 04/29/22 11:25 36.1 16 129/83 (98) 99 Room Air 04/29/22 11:07 36.2 16 121/61 (81) 99 Room Air 04/29/22 10:09 36.9 90 18 130/74 (92) 99 Room Air I & O 04/30/22 07:00 Intake Total 4650 ml Output Total 1425 ml Balance 3225 ml Vital signs are relatively stable patient is afebrile. The abdomen is benign. The surgical incisions clean dry and intact. Extremities show no clubbing cyanosis. There is no Homans' sign. Assessment and plan Postoperative day 1 status post repeat delivery doing well. Plan is for Routine convalescent Care May 01, 2022 Patient is without complaint. She is ambulating, voiding, tolerating oral intake well and has good pain control. Patient is requesting discharge home. Vital Signs Date Time Temp Pulse Resp B/P (MAP) Pulse Ox O2 Delivery O2 Flow Rate FiO2 05/01/22 06:16 37.0 94 18 126/65 (85) 98 Room Air 05/01/22 00:00 36.8 90 18 126/72 (90) 98 Room Air 04/30/22 17:53 36.7 98 18 137/75 (95) 99 Room Air 04/30/22 12:10 36.6 83 18 123/75 (91) 99 Room Air Vital signs are stable. Patient is afebrile. The surgical incision clean dry and intact Fundus is firm below the umbilicus and nontender. Extremities show no clubbing cyanosis. No Homans' sign. Assessment and plan Post operative day #2 status post repeat delivery at 38 weeks gestation. Patient doing well will be discharged home with follow-up in clinic Final Diagnosis 38-week repeat delivery DUC LUNA MD May 01, 2022 09:36
[2022-05-01 10:20] VITALS: BP 127/68
[2022-05-01] MEDS ORDERED: HYDROCORTISONE 2.5% CREAM (ANUSOL-HC) 30 GM TOP SCH (10:28)
[2022-05-01 12:15] VITALS: BP 127/68
--- NOTE | 2022-05-01 14:46 | Anesthesia-Regional Post-Op ---
Regional Patient Condition Mental Status: Alert, Oriented x3 Circulation: Same as Pre-Op Headache: Absent Sensation: Full Recovery Motor Block: Absent Post Op Complications Complications None Follow Up Care/Instructions Patient Instructions None needed. Anesthesia/Patient Condition Patient is doing well, no complaints, stable vital signs, no apparent adverse anesthesia problems. No complications reported per nursing. JOVANY PATEL CRNA May 01, 2022 14:46
== END 2022-05-01 12:15 | disposition home or self-care (01) | DRG 788 ==
LOC: LDRP 07:50
PROVIDERS: ADMIT Obstetrics & Gynecology; ATTEND Obstetrics & Gynecology
PROC: 10D00Z1 Extraction of Products of Conception, Low, Open Approach (ICD-10-PCS; principal; 2022-04-29 10:17)
DX: O13.4 Gestational [pregnancy-induced] hypertension without significant proteinuria, complicating childbirth (principal); O34.211 Maternal care for low transverse scar from previous cesarean delivery; Z3A.38 38 weeks gestation of pregnancy; Z37.0 Single live birth; Z28.21 Immunization not carried out because of patient refusal; Z28.310 Unvaccinated for COVID-19
CPT/HCPCS: 36415; 85025; 86850; 86900; 86901; 94664